=== PATIENT | female | born 1935 | race Caucasian/White ===

== ENCOUNTER 2020-06-30 11:26 | Emergency (ER) | payer MEDICARE, MEDICAID, SELFPAY ==
[2020-06-30] VITALS (24 sets, daily range): BP systolic 166–225; BP diastolic 67–106; PULSE 53–114; RESP 13–30; TEMP 36.4; O2SAT 90–99
--- NOTE | 2020-06-30 11:35 | ED.ABDPAIN ---
HPI - Abdominal Pain General Chief Complaint: Nausea/Vomiting/Diarrhea Stated Complaint: stomach and throat problems Time Seen by Provider: 06/30/20 11:35 Source: patient and family (Her sister) Mode of arrival: EMS Limitations: no limitations History of Present Illness HPI narrative: The patient is a resident of [facility] in [place], [place]. She developed nausea and vomiting yesterday. She describes recent loose bowel movements also. She has no URI symptoms, cough or sore throat. She has no fever. She has no dyspnea. She does not having significant chest discomfort. She has a nausea vomiting, no current complaints of pain. She has a prior history of hiatal hernia repair, as well as appendectomy. There is no history of bowel obstruction. She has no fever chills, no obvious illness with the current symptoms. She has asthma, no current difficulty breathing. Her sister confirms that she has frequent UTIs. The patient denies dysuria. She tells me she has chronic back pain, nothing new. She is hard of hearing, she does not appear to have confusion. Despite the GI complaints and she is tolerating oral fluids, she had her normal morning medications. Related Data Home Medications Medication Instructions Recorded Confirmed ALUM HYD/MAG HYD (MAALOX) 30 ml PO #0 03/12/08 Diltiazem Hydrochloride (Cardizem) 60 mg PO #0 03/12/08 Diltiazem Hydrochloride (Diltiazem 240 mg PO #0 03/12/08 24HR Cd) Esomeprazole Magnesium (Nexium) 40 mg PO #0 03/12/08 FUROSEMIDE (Lasix) 40 mg PO #0 03/12/08 Fluticasone Propionate/Salme 1 dose IH BID #0 03/12/08 (Advair Diskus 100/50) GABAPENTIN (Neurontin) 300 mg PO #0 03/12/08 HYDROCODONE/ACET 5/500 - 0 PO * UK DOSE/FREQUENCY #0 03/12/08 (Hydrocodon-Acetaminophen 5-500) IPRATROPIUM INHALER - (ATROVENT) 0 INH * UK DOSE/FREQUENCY #0 03/12/08 LEVOTHYROXINE SODIUM (Synthroid) 100 mcg PO #0 03/12/08 LORAZEPAM (Ativan) 0.5 mg PO #0 03/12/08 Metformin Hydrochloride 500 mg PO #0 03/12/08 (Glucophage) Montelukast Sodium (Singulair) 10 mg PO #0 03/12/08 NYSTATIN (Mycostatin) 0 PO * UK DOSE/FREQUENCY #0 03/12/08 OMEPRAZOLE 10 mg PO #0 03/12/08 Ondansetron Hydrochloride- (Zofran) 4 mg PO #0 03/12/08 POTASSIUM CHLORIDE (K-Dur) 20 meq PO BID #0 03/12/08 Promethazine HCl (Phenergan) 0 PO * UK DOSE/FREQUENCY #0 03/12/08 SPIRONOLACTONE (Aldactone) 50 mg PO #0 03/12/08 THEOPHYLLINE (Theophylline 0 PO * UK DOSE/FREQUENCY #0 03/12/08 Anhydrous) ezetimibe [Zetia] 10 mg PO Q DAY #0 03/12/08 gabapentin [Neurontin] 600 mg PO #0 03/12/08 Previous Rx's Medication Instructions Recorded ondansetron 4 mg PO Q4H PRN #14 tab 06/30/20 Allergies Allergy/AdvReac Type Severity Reaction Status Date / Time amoxicillin Allergy Verified 06/30/20 11:35 aspirin Allergy Verified 06/30/20 11:35 Cephalosporins Allergy Verified 06/30/20 11:35 clarithromycin [From Biaxin] Allergy Verified 06/30/20 11:35 levofloxacin [From Levaquin] Allergy Verified 06/30/20 11:35 moxifloxacin [From Avelox] Allergy Verified 06/30/20 11:35 naproxen [From Naprosyn] Allergy Verified 06/30/20 11:35 Penicillins Allergy Verified 06/30/20 11:35 Review of Systems Constitutional Constitutional: Denies chills, Denies fever(s) and Reports weakness Eyes Eyes: Denies change in vision ENT Ears, Nose, Mouth, and Throat: Denies dizziness and Denies sore throat Cardiovascular Cardiovascular: Denies chest pain, Denies irregular heart rhythm, Denies lightheadedness and Denies dyspnea Respiratory Respiratory: Denies cough, Denies dyspnea and Denies wheezing Gastrointestinal Gastrointestinal: Reports as per HPI Genitourinary Genitourinary: Denies dysuria Genitourinary: Denies dysuria Musculoskeletal Musculoskeletal: Reports as per HPI and Reports back pain Integumentary/Breasts Skin/Breast: Reports erythema (Erythema is rash in her groin.) Neurologic Neurologic: Denies confusion, Denies dizziness and Reports weakness Psychiatric Psychiatric: Denies confusion Allergic/Immunologic Allergic/Immunologic: Denies wheezing Patient History Medical History (Updated 06/30/20 @ 17:49 by Chapin Toribio MD) Asthma (Acute) Hiatal hernia (Acute) Type 2 diabetes mellitus (Acute) Surgical History (Updated 06/30/20 @ 14:13 by Chapin Toribio MD) History of appendectomy (Acute) History of cholecystectomy (Acute) History of repair of hiatal hernia (Acute) Social History Smoking Status: Unknown if ever smoked Exam Initial Vital Signs Initial Vital Signs: Vital Signs Temperature 97.6 F 06/30/20 11:30 Pulse Rate 114 H 06/30/20 11:30 Respiratory Rate 21 06/30/20 11:30 Blood Pressure 199/106 H 06/30/20 11:30 Pulse Oximetry 96 06/30/20 11:30 Const General: cooperative and well developed Nutritional Appearance: well nourished HENKY Mouth: oral mucosae normal Throat: posterior oropharynx normal Eyes General: appearance normal, both eyes and all related structures Eyelids: eyelids normal Conjunctivae: conjunctivae normal Sclera: sclerae normal Pupils: PERRL EOM: EOM intact bilaterally Neck Neck: No JVD Resp Effort & Inspection: normal respiratory effort and able to speak in complete sentences Auscultation: clear to auscultation bilaterally, no rales, no rhonchi and no wheezes Cardio Rate: regular rate Rhythm: regular rhythm Heart Sounds: S1 normal, S2 normal, no click, no gallops, no murmurs and no rubs Pulses: normal peripheral pulses GI Inspection: non-distended Palpation: soft, no hepatosplenomegaly, No guarding, No pulsatile mass and No tender Auscultation: normal bowel sounds Back/Spine/Pelvis Back: No CVA tenderness Skin General: no rashes or lesions noted, No jaundice and No petechiae Neuro General: patient alert, patient oriented x3, gait normal and no focal motor deficits Speech: speech normal Extrem General: full ROM, no pedal edema and no calf tenderness Psych Mental Status: mental status grossly normal Course Course Course Narrative: The patient tolerated sips of fluid after receiving Zofran. She says she still has epigastric discomfort, but no nausea vomiting. She describes burning in the sternum after vomiting. She has a history of hiatal hernia, she has GERD symptoms. She is already taking Nexium, as well as Maalox. Her evaluation is reassuring. She will be discharged with her current medications as well as Zofran. Additionally she has a rash in her going, she will be instructed to treat this with clotrimazole. Her blood pressure increased above 200 here, the with no headache, visual changes, chest pain or dyspnea. She has been taking regular meds, she was given lisinopril 5 mg p.o. her blood pressure improved. She is appropriate for discharge. She should follow-up with her doctor regarding her blood pressure. Orders Ordered: ED Orders 06/30/20 11:35 EKG-12 Lead Routine 06/30/20 11:53 Complete Blood Count AUTO DIFF Stat Comprehensive Metabolic Panel Stat Lipase Stat 06/30/20 11:55 XR acute abdomen series Stat Discontinued Medications Sodium Chloride (Normal Saline 0.9%) 1,000 mls @ 1,000 mls/hr IV BOLUS ONE Stop: 06/30/20 12:54 Last Infusion: 06/30/20 14:38 Dose: 0 mls/hr Documented by: Admin: 06/30/20 12:14 Dose: 1,000 mls/hr Documented by: ROXANNA Ketorolac Tromethamine (Toradol) 60 mg IM NOW ONE Stop: 06/30/20 11:56 Last Admin: 06/30/20 12:14 Dose: Not Given Documented by: ROXANNA Lisinopril (Zestril) 5 mg PO NOW ONE Stop: 06/30/20 15:07 Last Admin: 06/30/20 15:19 Dose: 5 mg Documented by: ROXANNA Ondansetron HCl (Zofran) 4 mg IV NOW ONE Stop: 06/30/20 11:56 Last Admin: 06/30/20 12:14 Dose: 4 mg Documented by: ROXANNA Vital Signs Vital signs: Vital Signs - 8 hr 06/30/20 11:30 06/30/20 11:42 06/30/20 12:00 Temperature 97.6 F Pulse Rate 114 H 82 66 Respiratory Rate 21 30 H 13 Blood Pressure 199/106 H Pulse Oximetry 96 98 98 06/30/20 12:01 06/30/20 12:17 06/30/20 12:30 Temperature Pulse Rate 66 65 75 Respiratory Rate 14 Blood Pressure 166/68 H 168/67 H 175/94 H Pulse Oximetry 98 98 96 06/30/20 13:00 06/30/20 13:30 06/30/20 13:31 Temperature Pulse Rate 59 L 60 Respiratory Rate 18 Blood Pressure 184/77 H 196/74 H Pulse Oximetry 98 99 99 06/30/20 14:00 06/30/20 14:01 06/30/20 14:30 Temperature Pulse Rate 59 L 66 63 Respiratory Rate 21 22 29 H Blood Pressure 192/75 H Pulse Oximetry 99 99 93 06/30/20 14:54 06/30/20 15:01 06/30/20 15:03 Temperature Pulse Rate 71 Respiratory Rate 27 H Blood Pressure 217/87 H 206/84 H Pulse Oximetry 97 06/30/20 15:15 06/30/20 15:16 06/30/20 15:19 Temperature Pulse Rate 53 L 57 L Respiratory Rate Blood Pressure 208/79 H 208/79 H Pulse Oximetry 94 99 06/30/20 15:31 06/30/20 15:33 06/30/20 15:48 Temperature Pulse Rate 54 L 57 L 58 L Respiratory Rate Blood Pressure 225/101 H 224/99 H Pulse Oximetry 90 L 99 98 06/30/20 15:53 06/30/20 16:05 06/30/20 16:17 Temperature Pulse Rate 61 Respiratory Rate Blood Pressure 197/89 H 190/100 H 184/86 H Pulse Oximetry 98 MDM - Abdominal Pain Lab Data Result diagrams: 06/30/20 11:53 06/30/20 11:53 Labs: Lab Results 06/30/20 06/30/20 Range/Units 11:53 11:53 WBC 5.2 (4.5-11.0) X10^3/uL RBC 4.25 (4.0-5.2) X10^6/uL Hgb 14.4 (12.0-16.0) g/dL Hct 42.3 (36-46) % MCV 99.5 (80-100) fL MCH 33.8 (26-34) PG MCHC 34.0 (30-36) % RDW 13.0 (11.6-14.8) % Plt Count 236 (150-400) X10^3/uL Neut % (Auto) 63.8 (50-75) % Lymph % (Auto) 22.2 L (25-40) % [place] % (Auto) 8.0 (3-14) % Eos % (Auto) 4.9 H (2-4) % Baso % (Auto) 1.1 (0-2) % Neut # (Auto) 3300 (0053-9294) /uL Lymph # (Auto) 1200 (9247-5226) /uL [place] # (Auto) 400 (0-900) /uL Eos # (Auto) 300 (0-450) /uL Baso # (Auto) 100 (0-100) /uL Sodium 135 L (137-145) mmol/L Potassium 5.3 H (3.4-5.1) mmol/L Chloride 100 (98-107) mmol/L Carbon Dioxide 26 (22-32) mmol/L BUN 22 H (7-17) mg/dL Creatinine 1.09 H (0.52-1.04) mg/dL Estimated GFR 47.8 L (>60) mL/min BUN/Creatinine Ratio 20.2 (6-22) Glucose 172 H (80-110) mg/dL Calcium 11.0 H (8.4-10.2) mg/dL Total Bilirubin 1.0 (0.2-1.3) mg/dL AST 48 H (14-36) IU/L ALT 36 H (<35) IU/L Alkaline Phosphatase 171 H (38-126) U/L Total Protein 8.0 (6.3-8.2) g/dL Albumin 4.4 (3.5-5.0) g/dL Globulin 3.6 (1.7-4.1) g/dL Albumin/Globulin Ratio 1.2 (1.0-2.8) Lipase 88 (23-300) U/L Point of care testing: Urine Dip Bedside Urine Glucose Negative Bedside Urine Bilirubin - Negative Bedside Urine Ketone +/- 5 Urine Specific [place] 1.020 Bedside Urine Occult Blood - Negative Bedside Urine pH 5.5 Bedside Urine Protein - Negative Bedside Urine Urobilinogen - Negative Bedside Urine Nitrite - Negative Bedside Urine Leukocytes - Negative Esterase Imaging Data Abdominal x-ray: Radiologist's Impression: 19 Chapin Toribio MD Find Patient Imaging - Chasse,Mariana Y 84 F 1935 ACTIVITY DATE EXAM STATUS AUTHOR 06/30/20 11:55 Signed [facility] [address] [address] XRay Report Signed Patient: Mariana Alves YMR#: [id number] : 5Acct:[id number] Age/Sex: 84 / FDate of Service: 06/30/20 Loc: ED Accession Number: [id number] Procedure: XR acute abdomen series Ordering Provider: Chapin Toribio MD PROCEDURE: XR ACUTE ABDOMEN SERIES INDICATIONS: Persistent nausea/vomiting. Hiatal hernia repair. Asthma. TECHNIQUE: One view chest and two views of the abdomen were acquired. COMPARISON: [facility], CHEST 2 VIEW, 03/04/2008, 15:07. FINDINGS: Surgical changes and devices: Cholecystectomy. Chest: Hyperinflation consistent with COPD. Bibasilar opacities are most likely scars and atelectasis. Heart size is normal. No pleural effusions. No pneumoperitoneum. Abdomen: There is abundant colonic gas and small bowel gas. No air-fluid levels. Metallic densities in pelvis are most likely a side of the patient. No suspicious calcifications. Visualized solid organ contours appear normal. Bones: No suspicious bony lesions. IMPRESSION: Nonspecific, nonobstructive bowel gas pattern. Dictated by: Jaswant Story M.D. on 06/30/2020 at 13:11 Approved by: Jaswant Story M.D. on 06/30/2020 at 13:23 ECG Data Attestation: I personally reviewed and interpreted this ECG as follows: (Normal sinus rhythm with marked sinus arrhythmia. Rate 76 beats per minute. Left axis deviation. No ectopy.) Discharge Plan Departure Patient Disposition: Home Clinical Impression: Nausea & vomiting, History of repair of hiatal hernia, Tinea cruris, Hypertension Discharge Date/Time: 06/30/20 16:30 Instructions: Tinea Cruris: AKA [place] Itch, DI for Vomiting -- Adult Activity Restrictions/Additional Instructions: Continue your current medications. Zofran 1 tablet every 4-6 hours as needed for nausea. For the rash, the areas should be cleaned with soap and water 2-3 times daily. After the sites heard clean and dry, apply clotrimazole cream to the sites. The clotrimazole should also be applied to 3 times daily, until the rash is obviously improving. If the rash does not improve within 2 weeks follow-up with your doctor. Clotrimazole is available [id number]. Be sure you are drinking plenty of water, you should be on a bland diet for the next 48 hours. I suspect you feeling better within a day, if not improved within 2 days return to the ER. If obviously worse return the ER at any time. Regarding your blood pressure, you should follow-up with your doctor to re-evaluate your blood pressure management. Prescriptions: New ondansetron 4 mg tablet,disintegrating 4 mg PO Q4H PRN (Reason: nausea and vomiting) Qty: 14 RF: 0 No Action Diltiazem Hydrochloride (Diltiazem 24HR Cd) 240 mg PO Qty: 0 RF: 0 Esomeprazole Magnesium (Nexium) 40 mg PO Qty: 0 RF: 0 FUROSEMIDE (Lasix) 40 mg PO Qty: 0 RF: 0 GABAPENTIN (Neurontin) 300 mg PO Qty: 0 RF: 0 IPRATROPIUM INHALER - (ATROVENT) 0 INH * UK DOSE/FREQUENCY Qty: 0 RF: 0 Metformin Hydrochloride (Glucophage) 500 mg PO Qty: 0 RF: 0 OMEPRAZOLE 10 mg PO Qty: 0 RF: 0 THEOPHYLLINE (Theophylline Anhydrous) 0 PO * UK DOSE/FREQUENCY Qty: 0 RF: 0 ezetimibe [Zetia] 10 MG tablet 10 mg PO Q DAY Qty: 0 RF: 0 Fluticasone Propionate/Salme (Advair Diskus 100/50) 1 dose IH BID Qty: 0 RF: 0 LEVOTHYROXINE SODIUM (Synthroid) 100 mcg PO Qty: 0 RF: 0 Montelukast Sodium (Singulair) 10 mg PO Qty: 0 RF: 0 ALUM HYD/MAG HYD (MAALOX) 30 ml PO Qty: 0 RF: 0 gabapentin [Neurontin] 600 MG tablet 600 mg PO Qty: 0 RF: 0 Diltiazem Hydrochloride (Cardizem) 60 mg PO Qty: 0 RF: 0 LORAZEPAM (Ativan) 0.5 mg PO Qty: 0 RF: 0 NYSTATIN (Mycostatin) 0 PO * UK DOSE/FREQUENCY Qty: 0 RF: 0 HYDROCODONE/ACET 5/500 - (Hydrocodon-Acetaminophen 5-500) 0 PO * UK DOSE/FREQUENCY Qty: 0 RF: 0 Ondansetron Hydrochloride- (Zofran) 4 mg PO Qty: 0 RF: 0 Promethazine HCl (Phenergan) 0 PO * UK DOSE/FREQUENCY Qty: 0 RF: 0 POTASSIUM CHLORIDE (K-Dur) 20 meq PO BID Qty: 0 RF: 0 SPIRONOLACTONE (Aldactone) 50 mg PO Qty: 0 RF: 0 Referrals: Pancho Kincaid MD [Primary Care Provider] -
--- NOTE | 2020-06-30 11:55 | DI.RAD.S_ITS ---
PROCEDURE: XR ACUTE ABDOMEN SERIES INDICATIONS: Persistent nausea/vomiting. Hiatal hernia repair. Asthma. TECHNIQUE: One view chest and two views of the abdomen were acquired. COMPARISON: Located [facility], , CHEST 2 VIEW, 03/04/2008, 15:07. FINDINGS: Surgical changes and devices: Cholecystectomy. Chest: Hyperinflation consistent with COPD. Bibasilar opacities are most likely scars and atelectasis. Heart size is normal. No pleural effusions. No pneumoperitoneum. Abdomen: There is abundant colonic gas and small bowel gas. No air-fluid levels. Metallic densities in pelvis are most likely a side of the patient. No suspicious calcifications. Visualized solid organ contours appear normal. Bones: No suspicious bony lesions. IMPRESSION: Nonspecific, nonobstructive bowel gas pattern. Dictated by: Jaswant Story M.D. on 06/30/2020 at 13:11 Approved by: Jaswant Story M.D. on 06/30/2020 at 13:23
[2020-06-30 12:02] LABS: Add Manual Diff / Slide Review NO; Basophils Absolute Auto 100 /uL (0-100); Basophils Percent Auto 1.1 % (0-2); Eosinophils Absolute Auto 300 /uL (0-450); Eosinophils Percent Auto 4.9 % (2-4); Hematocrit 42.3 % (36-46); Hemoglobin 14.4 g/dL (12.0-16.0); Lymphocytes Absolute Auto 1200 /uL (1100-4500); Lymphocytes Percent Auto 22.2 % (25-40); Mean Corpuscular Hemoglobin 33.8 PG (26-34); Mean Corpuscular Volume 99.5 fL (80-100); Monocytes Absolute Auto 400 /uL (0-900); Neutrophils Absolute Auto 3300 /uL (1500-7000); Neutrophils Percent Auto 63.8 % (50-75); Platelet Count 236 X10^3/uL (150-400); Red Blood Cell Count 4.25 X10^6/uL (4.0-5.2); White Blood Cell Count 5.2 X10^3/uL (4.5-11.0)
[2020-06-30 12:12] LABS: Alanine Aminotransferase 36 IU/L (<35); Albumin 4.4 g/dL (3.5-5.0); Albumin Globulin Ratio 1.2 (1.0-2.8); Alkaline Phosphatase 171 U/L (38-126); Aspartate Aminotransferase 48 IU/L (14-36); BUN Creatinine Ratio 20.2 (6-22); Blood Urea Nitrogen 22 mg/dL (7-17); Carbon Dioxide 26 mmol/L (22-32); Chloride 100 mmol/L (98-107); Estimated Glomerular Filt Rate 47.8 mL/min (>60); Globulin 3.6 g/dL (1.7-4.1); Glucose 172 mg/dL (80-110); HEMOLYSIS < 15 (0-50); Lipase 88 U/L (23-300); Potassium 5.3 mmol/L (3.4-5.1); Sodium 135 mmol/L (137-145)
[2020-06-30] MEDS: ONDANSETRON 4 MG/2 ML INJ IV (12:14)
[2020-06-30] MEDS: SODIUM CHLORIDE 0.9% 1,000 ML 1000 ML IV (12:14)
--- NOTE | 2020-06-30 15:07 | PC.NURSE ---
Attempting to discharge patient. attendant child activity and IV removed. Discharge vital sign shows BP 217/84, repeated on opposite arm and BP 206/84. Provider notified and patient situated back in bed and placed back on electronic test technician.
[2020-06-30] MEDS: lisinopriL 5 MG TABLET PO (15:19)
[2020-07-01 21:10] LABS: COVID19 Sendout Not Detected (Not Detect)
== END 2020-06-30 16:30 | disposition home or self-care (01) ==
PROVIDERS: Emergency Provider Emergency Medicine; PCP Family Medicine
DX: R11.2 Nausea with vomiting, unspecified (principal); R19.7 Diarrhea, unspecified; B35.6 Tinea cruris; I10 Essential (primary) hypertension; E11.9 Type 2 diabetes mellitus without complications; Z11.59 Encounter for screening for other viral diseases
CPT/HCPCS: 36415; 74022; 80053; 81003; 83690; 85025; 87635; 93005; 96361; 96374; 99284; J2405

== ENCOUNTER 2020-07-05 12:14 | Observation (INO) | payer MEDICARE, MEDICAID, SELFPAY ==
[2020-07-05] VITALS (13 sets, daily range): BP systolic 135–184; BP diastolic 61–113; PULSE 72–104; RESP 17–30; TEMP 36.6–36.8; O2SAT 90–99; BMI 21.6
[2020-07-05 13:31] LABS: Add Manual Diff / Slide Review NO; Basophils Absolute Auto 100 /uL (0-100); Basophils Percent Auto 0.8 % (0-2); Eosinophils Absolute Auto 300 /uL (0-450); Eosinophils Percent Auto 5.3 % (2-4); Hematocrit 40.4 % (36-46); Hemoglobin 13.5 g/dL (12.0-16.0); Lymphocytes Absolute Auto 1400 /uL (1100-4500); Lymphocytes Percent Auto 23.4 % (25-40); Mean Corpuscular HGB Conc 33.5 % (30-36); Mean Corpuscular Hemoglobin 33.5 PG (26-34); Mean Corpuscular Volume 99.9 fL (80-100); Monocytes Absolute Auto 600 /uL (0-900); Monocytes Percent Auto 10.5 % (3-14); Neutrophils Absolute Auto 3600 /uL (1500-7000); Platelet Count 301 X10^3/uL (150-400); Red Blood Cell Count 4.04 X10^6/uL (4.0-5.2); Red Cell Distribution Width 13.3 % (11.6-14.8)
[2020-07-05 13:37] LABS: Alanine Aminotransferase 25 IU/L (<35); Albumin Globulin Ratio 1.1 (1.0-2.8); Alkaline Phosphatase 133 U/L (38-126); Aspartate Aminotransferase 45 IU/L (14-36); BUN Creatinine Ratio 28.3 (6-22); Bilirubin Total 0.7 mg/dL (0.2-1.3); Blood Urea Nitrogen 34 mg/dL (7-17); Calcium 12.3 mg/dL (8.4-10.2); Carbon Dioxide 27 mmol/L (22-32); Chloride 101 mmol/L (98-107); Creatine Kinase 109 U/L (30-135); Estimated Glomerular Filt Rate 42.8 mL/min (>60); Globulin 3.6 g/dL (1.7-4.1); Glucose 151 mg/dL (80-110); HEMOLYSIS < 15 (0-50); Lipase 85 U/L (23-300); Sodium 138 mmol/L (137-145); Total Protein 7.6 g/dL (6.3-8.2)
[2020-07-05 13:48] LABS: Troponin I < 0.012 ng/mL (0.01-0.034)
[2020-07-05 13:52] LABS: CKMB % Relative Index 2.3 % (1.5-5.0); Creatine Kinase MB 2.49 ng/mL (<2.37)
--- NOTE | 2020-07-05 13:52 | PC.NURSE ---
Family reports HX diverticulitis
[2020-07-05 14:33] LABS: RBC Urine None Seen (0-5/HPF)
--- NOTE | 2020-07-05 14:36 | DI.CT.S_ITS ---
PROCEDURE: CT ABDOMEN PELVIS W CON INDICATIONS: Uncontrollable vomiting, history of hiatal hernia TECHNIQUE: After the administration of oral and intravenous contrast, 5 mm thick sections acquired from the diaphragms to the symphysis. 5 mm thick coronal and sagittal reformats were performed. For radiation dose reduction, the following was used: automated exposure control, adjustment of mA and/or kV according to patient size. COMPARISON: [facility], CT, ABDOMEN/PELVIS WITH CONTRAST, 10/21/2013, 10:39. FINDINGS: Image quality: Excellent. ABDOMEN: Lung bases: Lung bases are clear. Punctate pulmonary nodule of the left lung base, unchanged. No pleural effusion. Heart size is normal. Solid organs: Liver is normal in size and enhancement. Gallbladder is surgically absent. Biliary system is non-dilated. Pancreas enhances normally. Spleen is normal in size and enhancement. Heterogeneous appearance of the right adrenal gland is similar to 2013 suggesting a benign etiology. Small calcification in the left adrenal gland. Kidneys enhance symmetrically. No hydronephrosis. Simple right renal cyst is again seen. Peritoneum and bowel: Small hiatal hernia similar to the prior exam. Small calcification at the gastric cardia. No perigastric free fluid. Diverticulosis. No small bowel obstruction. No pneumoperitoneum. Nodes and vessels: No retroperitoneal or mesenteric adenopathy. Aorta and inferior vena cava are normal in caliber. Extensive calcified atherosclerotic plaque. Miscellaneous: Small upper abdominal midline fat containing hernia, unchanged. The hernia neck measures 1.3 cm. PELVIS: Genitourinary: Bladder wall thickness is normal. Small right ovarian cyst in this postmenopausal patient measuring 2.8 cm, remotely 2.2 cm in 2013. Anteverted uterus with likely small calcified fibroid. Miscellaneous: No inguinal hernias or adenopathy. Bones: No suspicious bony lesions. Extensive DDD. No vertebral body compression fractures. IMPRESSION: 1. No acute inflammatory process identified. 2. Small hiatal hernia is stable in appearance. No free fluid. No bowel obstruction. Additional findings: Post cholecystectomy Diverticulosis Small right ovarian cyst Suspect remote adrenal hemorrhage Dictated by: Eriberto Gilmore M.D. on 07/05/2020 at 15:26 Approved by: Eriberto Gilmore M.D. on 07/05/2020 at 15:36
[2020-07-05] MEDS: ONDANSETRON 4 MG/2 ML INJ IV ×2 (14:46→23:52)
[2020-07-05] MEDS: SODIUM CHLORIDE 0.9% 1,000 ML 150 ML IV (14:46)
[2020-07-05 14:52] LABS: Bacteria Urine Many (>30); Hyaline Casts Urine 1-5/LPF; Squamous Epithelial Cell Urine 0-1 /HPF (0-5/HPF); WBC Urine 30-100/HPF (0-5/HPF)
[2020-07-05 14:53] LABS: Culture Indicated Urine Specimen Cultured
--- NOTE | 2020-07-05 15:07 | ED_ITS ---
HPI - Chest Pain <Toshia CoteROSALES - Last Filed: 07/05/20 20:35> General Chief Complaint: Chest Pain Stated Complaint: NOT ABLE TO SWALLOW FOOD PAIN CHEST DIZZY THROAT Time Seen by Provider: 07/05/20 12:25 Source: patient and family Mode of arrival: Wheelchair Limitations: no limitations History of Present Illness HPI narrative: 84yo female with history of diabetes, asthma, appendectomy, cholecystectomy, and hiatal hernia, presents to the emergency department complaining of nausea and vomiting and difficulty swallowing for the past 6 days. Patient was seen and evaluated in the emergency department and sent home. She currently lives in an assisted living facility. Her sister brought her back to the emergency department as a reports that she continues to vomit and cannot keep anything down. Patient reports epigastric and lower left abdominal pain. She also reports chest pain that is worse when she tries to swallow something, states ?it feels food gets stuck. Patient denies any fevers, chills, dysuria, dizziness, syncope, or recent falls. Related Data Home Medications Medication Instructions Recorded Confirmed acetaminophen 650 mg PO TID 07/05/20 07/05/20 albuterol sulfate [Ventolin HFA] 1 inh INHALATION Q4HR PRN 07/05/20 07/05/20 calcium carbonate-vitamin D3 1 tab PO BID 07/05/20 07/05/20 cetirizine 5 mg PO DAILY 07/05/20 07/05/20 famotidine 20 mg PO DAILY 07/05/20 07/05/20 fluticasone propion-salmeterol 1 inh INHALATION BID 07/05/20 07/05/20 [Advair Diskus] fluticasone propionate 1 spray INTRANASAL BID 07/05/20 07/05/20 ketotifen fumarate [Allergy Eye 1 drp EYE-BOTH DAILY PRN 07/05/20 07/05/20 (ketotifen)] levothyroxine 75 mcg PO DAILY 07/05/20 07/05/20 metformin 500 mg PO QAM 07/05/20 07/05/20 multivitamin with minerals [Daily 1 tab PO DAILY 07/05/20 07/05/20 Multivitamin-Minerals] nystatin 1 applic TOPICAL DAILY PRN 07/05/20 07/05/20 ondansetron 4 mg TRANSLINGUAL Q4HR PRN 07/05/20 07/05/20 polyethylene glycol 3350 [Miralax] 17 g PO DAILY PRN 07/05/20 07/05/20 polyvinyl alcohol [Artificial 1 drp EYE-BOTH DAILY 07/05/20 07/05/20 Tears (polyvin alc)] Allergies Allergy/AdvReac Type Severity Reaction Status Date / Time aspirin Allergy Mild Rash Verified 07/06/20 10:45 naproxen [From Naprosyn] Allergy Mild Rash Verified 07/06/20 10:45 amoxicillin Allergy Verified 07/05/20 12:25 Cephalosporins Allergy Verified 07/05/20 12:25 clarithromycin [From Biaxin] Allergy Verified 07/05/20 12:25 levofloxacin [From Levaquin] Allergy Verified 07/05/20 12:25 moxifloxacin [From Avelox] Allergy Verified 07/05/20 12:25 Penicillins Allergy Verified 07/05/20 12:25 Review of Systems <ROSALES Wahl - Last Filed: 07/05/20 20:35> Review of Systems Narrative: REVIEW OF SYSTEMS: GENERAL: Denies fever. HENT: No head trauma, reports difficulty swallowing liquids. EYES: No vision changes CARDIOVASCULAR: Reports chest pain and difficulty swelling, see HPI. RESPIRATORY: No shortness of breath or cough. GASTROINTESTINAL: Reports epigastric pain and vomiting, see HPI GENITOURINARY: No flank pain or dysuria. MUSCULOSKELETAL: No pain, weakness, or trauma. INTEGUMENTARY: No rash, lesions, or pruritus. NEURO: No numbness or tingling. PSYCH: No behavior or mood changes. Patient History <ROSALES Wahl - Last Filed: 07/05/20 20:35> Medical History Asthma (Acute) Hiatal hernia (Acute) Hypertension (Inactive) Type 2 diabetes mellitus (Acute) Surgical History History of appendectomy (Acute) History of cholecystectomy (Acute) History of repair of hiatal hernia (Acute) Family History (Updated 07/06/20 @ 02:18 by ROSALES Keane) Father Asthma Mother Laryngeal disorder Stomach disorder Social History household members: none Smoking Status: Never smoker alcohol intake: current Smoking Status: Unknown if ever smoked alcohol intake frequency: holidays/special occasions only Substance Use Type: does not use Exam <ToshiaROSALES Pereyra - Last Filed: 07/05/20 20:35> Initial Vital Signs Initial Vital Signs: Vital Signs Pulse Rate 102 H 07/05/20 12:23 Respiratory Rate 18 07/05/20 12:23 Blood Pressure 135/92 H 07/05/20 12:23 Pulse Oximetry 99 07/05/20 12:23 PHYSICAL EXAMINATION: GENERAL: Well groomed, alert. Patient is extremely hard of hearing. Answers questions promptly and appropriately. Vital signs noted. HENT: Normocephalic, atraumatic. Oral mucosa moist. EYES: Conjunctiva pink, sclera white, no periorbital swelling. CARDIOVASCULAR: S1 and S2 sounds normal. Regular rate and rhythm, no murmurs, clicks, or bruits. No pedal edema. RESPIRATORY: Normal respiratory rate, trachea midline, airway patent. No stridor, nasal flaring or accessory muscle use. Lungs are clear in all contreras without wheeze, rhonchi, or crackles. GASTROINTESTINAL: Bowel sounds normoactive. Abdomen is soft and non-tender. No organomegaly, no palpable masses. GENITALURINARY: No flank tenderness. Erythematous patches noted to right and left inguinal areas. MUSCULOSKELETAL: Normal gait and coordination. Equal tone and mass bilaterally. EXTREMITIES: CMS intact, no pedal edema. SKIN: Warm, dry, soft, appropriate color for ethnicity. No lesions, rashes, or wounds to visualized areas. NEURO: Alert. Good coordination. No ataxia. PSYCH: Appropriate affect and mood. <Shahriar Whitney MD - Last Filed: 07/06/20 13:23> Initial Vital Signs Initial Vital Signs: Vital Signs Pulse Rate 102 H 07/05/20 12:23 Respiratory Rate 18 07/05/20 12:23 Blood Pressure 135/92 H 07/05/20 12:23 Pulse Oximetry 99 07/05/20 12:23 Course <ROSALES Wahl - Last Filed: 07/05/20 20:35> Course Course Narrative: 1603: I spoke with Dr. Up about admission given patient's inability to swallow or keep liquids down, she recommended consulting General surgery. 1607: I spoke with Dr. Benz who also evaluated patient. Recommends admit to medicine for scope in the morning. 1700: Patient admitted to Dr. Up for observation. Orders Ordered: Acetaminophen (Tylenol) 650 mg PO Q6HR PRN PRN Reason: Fever/Mild Pain (1-3) Albuterol (Ventolin Hfa (Vent/Covid R/O)) 1 puff INH Q4HR PRN PRN Reason: Shortness Of Breath Artificial Tears (Artificial Tears) 1 drops EYE-BOTH DAILY [facility] Last Admin: 07/06/20 10:58 Dose: 1 drops Documented by: AMRIK Bisacodyl (Dulcolax) 10 mg CO DAILY PRN PRN Reason: Constipation Docusate Sodium (Colace) 100 mg PO BID PRN PRN Reason: Constipation Famotidine (Pepcid Ac) 20 mg PO DAILY [facility] Last Admin: 07/06/20 10:58 Dose: 20 mg Documented by: AMRIK Fluticasone Propionate (Flonase) 1 spray NASAL BID [facility] Last Admin: 07/06/20 10:58 Dose: 1 spray Documented by: Admin: 07/05/20 20:49 Dose: Not Given Documented by: ANA PAULA Sodium Chloride (Normal Saline 0.9%) 1,000 mls @ 100 mls/hr IV CONT [facility] Last Admin: 07/06/20 02:34 Dose: 100 mls/hr Documented by: KALYANI Insulin Aspart (Novolog Flexpen) 0 unit SUBCUT AC [facility]; Protocol Last Admin: 07/06/20 12:14 Dose: Not Given Documented by: AMRIK Levothyroxine Sodium (Synthroid) 75 mcg PO DAILY [facility] Last Admin: 07/06/20 11:00 Dose: 75 mcg Documented by: AMRIK Loratadine (Claritin) 5 mg PO DAILY [facility] Last Admin: 07/06/20 10:59 Dose: 5 mg Documented by: AMRIK Naloxone HCl (Narcan) 0.2 mg IV Q2MIN PRN PRN Reason: Opiate Reversal Nystatin (Nystop) 1 applic TOP BID [facility] Last Admin: 07/06/20 10:59 Dose: 1 applic Documented by: Admin: 07/05/20 20:48 Dose: 1 applic Documented by: ANA PAULA Ondansetron HCl (Zofran) 4 mg IV Q6HR PRN PRN Reason: Nausea And Vomiting Last Admin: 07/06/20 08:11 Dose: 4 mg Documented by: Admin: 07/05/20 23:52 Dose: 4 mg Documented by: KALYANI Polyethylene Glycol (Miralax) 17 gm PO DAILY PRN PRN Reason: Constipation Fluticasone/Salmeterol (Advair 100/50 Diskus) 1 puff INH BID [facility] Last Admin: 07/06/20 11:20 Dose: 1 puff Documented by: Admin: 07/05/20 20:50 Dose: Not Given Documented by: ANA PAULA Discontinued Medications Sodium Chloride (Normal Saline 0.9%) 1,000 mls @ 150 mls/hr IV CONT [facility] Last Infusion: 07/05/20 17:31 Dose: 0 mls/hr Documented by: Admin: 07/05/20 14:46 Dose: 150 mls/hr Documented by: ROHITH Lactated Ringer's (Lactated Ringers) 1,000 mls @ 100 mls/hr IV CONT [facility] Last Admin: 07/05/20 17:55 Dose: 100 mls/hr Documented by: ANA PAULA Magnesium Sulfate (Magnesium Sulfate) 2 gm in 50 mls @ 25 mls/hr IV NOW ONE Stop: 07/05/20 23:48 Last Admin: 07/05/20 22:22 Dose: 25 mls/hr Documented by: ANA PAULA Cosigned by: TRAV Magnesium Sulfate (Magnesium Sulfate) 2 gm in 50 mls @ 25 mls/hr IV NOW ONE Stop: 07/06/20 09:11 Last Admin: 07/06/20 07:37 Dose: 25 mls/hr Documented by: AMRIK Cosigned by: LUPE Insulin Aspart (Novolog Flexpen) 1 unit SUBCUT [facility]; Protocol Last Admin: 07/06/20 08:05 Dose: 1 unit Documented by: AMRIK Cosigned by: LUPE Ketorolac Tromethamine (Toradol) 15 mg IV NOW ONE Stop: 07/06/20 10:35 Last Admin: 07/06/20 11:00 Dose: 15 mg Documented by: AMRIK Labetalol HCl (Trandate) 10 mg IV Q4HR PRN PRN Reason: Hypertension Ondansetron HCl (Zofran) 4 mg IV NOW ONE Stop: 07/05/20 14:39 Last Admin: 07/05/20 14:46 Dose: 4 mg Documented by: ROHITH Pantoprazole Sodium (Protonix) 40 mg IV NOW ONE Stop: 07/05/20 20:12 Last Admin: 07/05/20 20:49 Dose: 40 mg Documented by: ANA PAULA Consultations Consultation #1: Patient staffed with Dr. Whitney discussed test, test results, and plan of care. Vital Signs Vital signs: Vital Signs - 8 hr 07/05/20 12:30 07/05/20 13:00 07/05/20 13:30 Pulse Rate 98 H 80 72 Respiratory Rate 24 27 H Blood Pressure 144/89 H 138/66 143/61 H Pulse Oximetry 95 95 95 07/05/20 14:00 07/05/20 14:30 07/05/20 15:00 Pulse Rate 77 90 93 H Respiratory Rate 25 H 21 Blood Pressure 154/72 H Pulse Oximetry 93 94 98 07/05/20 15:30 07/05/20 16:08 Pulse Rate 95 H 86 Respiratory Rate 23 30 H Blood Pressure 184/84 H Pulse Oximetry 98 98 <Shahriar Whitney MD - Last Filed: 07/06/20 13:23> Orders Ordered: Acetaminophen (Tylenol) 650 mg PO Q6HR PRN PRN Reason: Fever/Mild Pain (1-3) Albuterol (Ventolin Hfa (Vent/Covid R/O)) 1 puff INH Q4HR PRN PRN Reason: Shortness Of Breath Artificial Tears (Artificial Tears) 1 drops EYE-BOTH DAILY [facility] Last Admin: 07/06/20 10:58 Dose: 1 drops Documented by: AMRIK Bisacodyl (Dulcolax) 10 mg CO DAILY PRN PRN Reason: Constipation Docusate Sodium (Colace) 100 mg PO BID PRN PRN Reason: Constipation Famotidine (Pepcid Ac) 20 mg PO DAILY [facility] Last Admin: 07/06/20 10:58 Dose: 20 mg Documented by: AMRIK Fluticasone Propionate (Flonase) 1 spray NASAL BID [facility] Last Admin: 07/06/20 10:58 Dose: 1 spray Documented by: Admin: 07/05/20 20:49 Dose: Not Given Documented by: ANA PAULA Sodium Chloride (Normal Saline 0.9%) 1,000 mls @ 100 mls/hr IV CONT [facility] Last Admin: 07/06/20 02:34 Dose: 100 mls/hr Documented by: KALYANI Insulin Aspart (Novolog Flexpen) 0 unit SUBCUT AC [facility]; Protocol Last Admin: 07/06/20 12:14 Dose: Not Given Documented by: AMRIK Levothyroxine Sodium (Synthroid) 75 mcg PO DAILY [facility] Last Admin: 07/06/20 11:00 Dose: 75 mcg Documented by: AMRIK Loratadine (Claritin) 5 mg PO DAILY [facility] Last Admin: 07/06/20 10:59 Dose: 5 mg Documented by: AMRIK Naloxone HCl (Narcan) 0.2 mg IV Q2MIN PRN PRN Reason: Opiate Reversal Nystatin (Nystop) 1 applic TOP BID [facility] Last Admin: 07/06/20 10:59 Dose: 1 applic Documented by: Admin: 07/05/20 20:48 Dose: 1 applic Documented by: ANA PAULA Ondansetron HCl (Zofran) 4 mg IV Q6HR PRN PRN Reason: Nausea And Vomiting Last Admin: 07/06/20 08:11 Dose: 4 mg Documented by: Admin: 07/05/20 23:52 Dose: 4 mg Documented by: KALYANI Polyethylene Glycol (Miralax) 17 gm PO DAILY PRN PRN Reason: Constipation Fluticasone/Salmeterol (Advair 100/50 Diskus) 1 puff INH BID [facility] Last Admin: 07/06/20 11:20 Dose: 1 puff Documented by: Admin: 07/05/20 20:50 Dose: Not Given Documented by: ANA PAULA Discontinued Medications Sodium Chloride (Normal Saline 0.9%) 1,000 mls @ 150 mls/hr IV CONT [facility] Last Infusion: 07/05/20 17:31 Dose: 0 mls/hr Documented by: Admin: 07/05/20 14:46 Dose: 150 mls/hr Documented by: ROHITH Lactated Ringer's (Lactated Ringers) 1,000 mls @ 100 mls/hr IV CONT [facility] Last Admin: 07/05/20 17:55 Dose: 100 mls/hr Documented by: ANA PAULA Magnesium Sulfate (Magnesium Sulfate) 2 gm in 50 mls @ 25 mls/hr IV NOW ONE Stop: 07/05/20 23:48 Last Admin: 07/05/20 22:22 Dose: 25 mls/hr Documented by: ANA PAULA Cosigned by: TRAV Magnesium Sulfate (Magnesium Sulfate) 2 gm in 50 mls @ 25 mls/hr IV NOW ONE Stop: 07/06/20 09:11 Last Admin: 07/06/20 07:37 Dose: 25 mls/hr Documented by: AMRIK Cosigned by: LUPE Insulin Aspart (Novolog Flexpen) 1 unit SUBCUT [facility]; Protocol Last Admin: 07/06/20 08:05 Dose: 1 unit Documented by: AMRIK Cosigned by: LUPE Ketorolac Tromethamine (Toradol) 15 mg IV NOW ONE Stop: 07/06/20 10:35 Last Admin: 07/06/20 11:00 Dose: 15 mg Documented by: AMRIK Labetalol HCl (Trandate) 10 mg IV Q4HR PRN PRN Reason: Hypertension Ondansetron HCl (Zofran) 4 mg IV NOW ONE Stop: 07/05/20 14:39 Last Admin: 07/05/20 14:46 Dose: 4 mg Documented by: ROHITH Pantoprazole Sodium (Protonix) 40 mg IV NOW ONE Stop: 07/05/20 20:12 Last Admin: 07/05/20 20:49 Dose: 40 mg Documented by: ANA PAULA Vital Signs Vital signs: Vital Signs - 8 hr 07/05/20 12:30 07/05/20 13:00 07/05/20 13:30 Pulse Rate 98 H 80 72 Respiratory Rate 24 27 H Blood Pressure 144/89 H 138/66 143/61 H Pulse Oximetry 95 95 95 07/05/20 14:00 07/05/20 14:30 07/05/20 15:00 Pulse Rate 77 90 93 H Respiratory Rate 25 H 21 Blood Pressure 154/72 H Pulse Oximetry 93 94 98 07/05/20 15:30 07/05/20 16:08 Pulse Rate 95 H 86 Respiratory Rate 23 30 H Blood Pressure 184/84 H Pulse Oximetry 98 98 MDM - Chest Pain <ROSALES Wahl - Last Filed: 07/05/20 20:35> Medical Records Data Attestation: I reviewed the patient's medical records. Lab Data Attestation: I reviewed the patient's lab results. Result diagrams: 07/05/20 12:54 07/06/20 06:45 Labs: Lab Results 07/05/20 07/05/20 07/05/20 Range/Units 12:54 12:54 12:54 WBC 6.0 (4.5-11.0) X10^3/uL RBC 4.04 (4.0-5.2) X10^6/uL Hgb 13.5 (12.0-16.0) g/dL Hct 40.4 (36-46) % MCV 99.9 (80-100) fL MCH 33.5 (26-34) PG MCHC 33.5 (30-36) % RDW 13.3 (11.6-14.8) % Plt Count 301 (150-400) X10^3/uL Neut % (Auto) 60.0 (50-75) % Lymph % (Auto) 23.4 L (25-40) % [place] % (Auto) 10.5 (3-14) % Eos % (Auto) 5.3 H (2-4) % Baso % (Auto) 0.8 (0-2) % Neut # (Auto) 3600 (9101-6297) /uL Lymph # (Auto) 1400 (6982-0344) /uL [place] # (Auto) 600 (0-900) /uL Eos # (Auto) 300 (0-450) /uL Baso # (Auto) 100 (0-100) /uL Sodium 138 (137-145) mmol/L Potassium 5.0 (3.4-5.1) mmol/L Chloride 101 (98-107) mmol/L Carbon Dioxide 27 (22-32) mmol/L BUN 34 H (7-17) mg/dL Creatinine 1.20 H (0.52-1.04) mg/dL Estimated GFR 42.8 L (>60) mL/min BUN/Creatinine Ratio 28.3 H (6-22) Glucose 151 H (80-110) mg/dL Calcium 12.3 H (8.4-10.2) mg/dL Magnesium 1.3 L (1.6-2.3) mg/dL Total Bilirubin 0.7 (0.2-1.3) mg/dL AST 45 H (14-36) IU/L ALT 25 (<35) IU/L Alkaline Phosphatase 133 H (38-126) U/L Total Creatine Kinase 109 (30-135) U/L CK-MB (CK-2) 2.49 H (<2.37) ng/mL CK-MB (CK-2) Rel Index 2.3 (1.5-5.0) % Troponin I < 0.012 (0.01-0.034) ng/mL Total Protein 7.6 (6.3-8.2) g/dL Albumin 4.0 (3.5-5.0) g/dL Globulin 3.6 (1.7-4.1) g/dL Albumin/Globulin Ratio 1.1 (1.0-2.8) Lipase 85 (23-300) U/L Urine RBC (0-5/HPF) Urine WBC (0-5/HPF) Ur Squamous Epith Cells (0-5/HPF) Urine Bacteria (None) Hyaline Casts (None) Ur Culture Indicated? Ur Random Sodium 07/05/20 07/05/20 Range/Units 14:20 14:20 WBC (4.5-11.0) X10^3/uL RBC (4.0-5.2) X10^6/uL Hgb (12.0-16.0) g/dL Hct (36-46) % MCV (80-100) fL MCH (26-34) PG MCHC (30-36) % RDW (11.6-14.8) % Plt Count (150-400) X10^3/uL Neut % (Auto) (50-75) % Lymph % (Auto) (25-40) % [place] % (Auto) (3-14) % Eos % (Auto) (2-4) % Baso % (Auto) (0-2) % Neut # (Auto) (8676-1934) /uL Lymph # (Auto) (0031-9166) /uL [place] # (Auto) (0-900) /uL Eos # (Auto) (0-450) /uL Baso # (Auto) (0-100) /uL Sodium (137-145) mmol/L Potassium (3.4-5.1) mmol/L Chloride (98-107) mmol/L Carbon Dioxide (22-32) mmol/L BUN (7-17) mg/dL Creatinine (0.52-1.04) mg/dL Estimated GFR (>60) mL/min BUN/Creatinine Ratio (6-22) Glucose (80-110) mg/dL Calcium (8.4-10.2) mg/dL Magnesium (1.6-2.3) mg/dL Total Bilirubin (0.2-1.3) mg/dL AST (14-36) IU/L ALT (<35) IU/L Alkaline Phosphatase (38-126) U/L Total Creatine Kinase (30-135) U/L CK-MB (CK-2) (<2.37) ng/mL CK-MB (CK-2) Rel Index (1.5-5.0) % Troponin I (0.01-0.034) ng/mL Total Protein (6.3-8.2) g/dL Albumin (3.5-5.0) g/dL Globulin (1.7-4.1) g/dL Albumin/Globulin Ratio (1.0-2.8) Lipase (23-300) U/L Urine RBC None seen (0-5/HPF) Urine WBC 30-100/hpf H (0-5/HPF) Ur Squamous Epith Cells 0-1 /hpf (0-5/HPF) Urine Bacteria Many (>30) H (None) Hyaline Casts 1-5/lpf (None) Ur Culture Indicated? Specimen cultured Ur Random Sodium Cancelled Urine Dip Bedside Urine Glucose Negative Bedside Urine Bilirubin + 1 Bedside Urine Ketone ++ 40 Urine Specific [place] 1.025 Bedside Urine Occult Blood - Negative Bedside Urine pH 5.5 Bedside Urine Protein +/- 15 Bedside Urine Urobilinogen +/- 1mg Bedside Urine Nitrite + Positive Bedside Urine Leukocytes ++ 125 Esterase Imaging Data Chest x-ray: Radiologist's Impression: [address] [address] XRay Report Signed Patient: Mariana Alves YMR#: [id number] : 5Acct:[id number] Age/Sex: 84 / FDate of Service: 06/30/20 Loc: ED Accession Number: [id number] Procedure: XR acute abdomen series Ordering Provider: Chapin Toribio MD PROCEDURE: XR ACUTE ABDOMEN SERIES INDICATIONS: Persistent nausea/vomiting. Hiatal hernia repair. Asthma. TECHNIQUE: One view chest and two views of the abdomen were acquired. COMPARISON: [facility], CR, CHEST 2 VIEW, 03/04/2008, 15:07. FINDINGS: Surgical changes and devices: Cholecystectomy. Chest: Hyperinflation consistent with COPD. Bibasilar opacities are most likely scars and atelectasis. Heart size is normal. No pleural effusions. No pneumoperitoneum. Abdomen: There is abundant colonic gas and small bowel gas. No air-fluid levels. Metallic densities in pelvis are most likely a side of the patient. No suspicious calcifications. Visualized solid organ contours appear normal. Bones: No suspicious bony lesions. IMPRESSION: Nonspecific, nonobstructive bowel gas pattern. Dictated by: Jaswant Story M.D. on 06/30/2020 at 13:11 Approved by: Jaswant Story M.D. on 06/30/2020 at 13:23 CT scan - abdomen/pelvis: Radiologist's Impression: [place] [address] CT Scan Report Signed Patient: Mariana Alves R#: [id number] : 5Acct:[id number] Age/Sex: 84 / FDate of Service: 07/05/20 Loc: ED Accession Number: [id number] Procedure: CT abdomen pelvis w con Ordering Provider: Toshia Cote PROCEDURE: CT ABDOMEN PELVIS W CON INDICATIONS: Uncontrollable vomiting, history of hiatal hernia TECHNIQUE: After the administration of oral and intravenous contrast, 5 mm thick sections acquired from the diaphragms to the symphysis. 5 mm thick coronal and sagittal reformats were performed. For radiation dose reduction, the following was used: automated exposure control, adjustment of mA and/or kV according to patient size. COMPARISON: [facility], CT, ABDOMEN/PELVIS WITH CONTRAST, 10/21/2013, 10:39. FINDINGS: Image quality: Excellent. ABDOMEN: Lung bases: Lung bases are clear. Punctate pulmonary nodule of the left lung base, unchanged. No pleural effusion. Heart size is normal. Solid organs: Liver is normal in size and enhancement. Gallbladder is surgically absent. Biliary system is non-dilated. Pancreas enhances normally. Spleen is normal in size and enhancement. Heterogeneous appearance of the right adrenal gland is similar to 2013 suggesting a benign etiology. Small calcification in the left adrenal gland. Kidneys enhance symmetrically. No hydronephrosis. Simple right renal cyst is again seen. Peritoneum and bowel: Small hiatal hernia similar to the prior exam. Small calcification at the gastric cardia. No perigastric free fluid. Diverticulosis. No small bowel obstruction. No pneumoperitoneum. Nodes and vessels: No retroperitoneal or mesenteric adenopathy. Aorta and inferior vena cava are normal in caliber. Extensive calcified atherosclerotic plaque. Miscellaneous: Small upper abdominal midline fat containing hernia, unchanged. The hernia neck measures 1.3 cm. PELVIS: Genitourinary: Bladder wall thickness is normal. Small right ovarian cyst in this postmenopausal patient measuring 2.8 cm, remotely 2.2 cm in 2013. Anteverted uterus with likely small calcified fibroid. Miscellaneous: No inguinal hernias or adenopathy. Bones: No suspicious bony lesions. Extensive DDD. No vertebral body compression fractures. IMPRESSION: 1. No acute inflammatory process identified. 2. Small hiatal hernia is stable in appearance. No free fluid. No bowel obstruction. Additional findings: Post cholecystectomy Diverticulosis Small right ovarian cyst Suspect remote adrenal hemorrhage Dictated by: Eriberto Gilmore M.D. on 07/05/2020 at 15:26 Approved by: Eriberto Gilmore M.D. on 07/05/2020 at 15:36 ECG Data Interpretation: 1224: Normal sinus rhythm, rate 98, CO interval 172, QTC 403. No ST elevation or ST depression. No T-wave inversion. EKG also viewed Dr. Whitney per protocol. [facility] Narrative Medical decision making narrative: 84-year-old female presents emergency department for continued vomiting, inability to swallow, and chest pain. Patient failed outpatient treatment with discharge due to continuing symptoms. Differential includes worsening hiatal hernia versus breath esophagus versus foreign object stuck in esophagus versus esophageal lesion/mass. Abdominal CT is non-remarkable for cause of continued vomiting or difficulty swelling. Less likely cardiac in nature given negative troponin and unremarkable EKG. Patient does have slightly worsening kidney function, this may be related to dehydration and lack of fluid given difficulty swallowing. Less likely infectious etiology given normal white blood cell, lack of severe abdominal pain, and lack of infectious findings on abdominal CT. However, urine was concerning for bacteria and white blood cells, sent to culture given lack of symptoms. Patient was admitted under Dr. Up for OBs, surgery was consulted for scope tomorrow. <Shahriar Whitney MD - Last Filed: 07/06/20 13:23> Lab Data Labs: Lab Results 07/05/20 07/05/20 07/05/20 Range/Units 12:54 12:54 12:54 WBC 6.0 (4.5-11.0) X10^3/uL RBC 4.04 (4.0-5.2) X10^6/uL Hgb 13.5 (12.0-16.0) g/dL Hct 40.4 (36-46) % MCV 99.9 (80-100) fL MCH 33.5 (26-34) PG MCHC 33.5 (30-36) % RDW 13.3 (11.6-14.8) % Plt Count 301 (150-400) X10^3/uL Neut % (Auto) 60.0 (50-75) % Lymph % (Auto) 23.4 L (25-40) % [place] % (Auto) 10.5 (3-14) % Eos % (Auto) 5.3 H (2-4) % Baso % (Auto) 0.8 (0-2) % Neut # (Auto) 3600 (5599-5179) /uL Lymph # (Auto) 1400 (9671-0108) /uL [place] # (Auto) 600 (0-900) /uL Eos # (Auto) 300 (0-450) /uL Baso # (Auto) 100 (0-100) /uL Sodium 138 (137-145) mmol/L Potassium 5.0 (3.4-5.1) mmol/L Chloride 101 (98-107) mmol/L Carbon Dioxide 27 (22-32) mmol/L BUN 34 H (7-17) mg/dL Creatinine 1.20 H (0.52-1.04) mg/dL Estimated GFR 42.8 L (>60) mL/min BUN/Creatinine Ratio 28.3 H (6-22) Glucose 151 H (80-110) mg/dL Calcium 12.3 H (8.4-10.2) mg/dL Magnesium 1.3 L (1.6-2.3) mg/dL Total Bilirubin 0.7 (0.2-1.3) mg/dL AST 45 H (14-36) IU/L ALT 25 (<35) IU/L Alkaline Phosphatase 133 H (38-126) U/L Total Creatine Kinase 109 (30-135) U/L CK-MB (CK-2) 2.49 H (<2.37) ng/mL CK-MB (CK-2) Rel Index 2.3 (1.5-5.0) % Troponin I < 0.012 (0.01-0.034) ng/mL Total Protein 7.6 (6.3-8.2) g/dL Albumin 4.0 (3.5-5.0) g/dL Globulin 3.6 (1.7-4.1) g/dL Albumin/Globulin Ratio 1.1 (1.0-2.8) Lipase 85 (23-300) U/L Urine RBC (0-5/HPF) Urine WBC (0-5/HPF) Ur Squamous Epith Cells (0-5/HPF) Urine Bacteria (None) Hyaline Casts (None) Ur Culture Indicated? Ur Random Sodium 07/05/20 07/05/20 Range/Units 14:20 14:20 WBC (4.5-11.0) X10^3/uL RBC (4.0-5.2) X10^6/uL Hgb (12.0-16.0) g/dL Hct (36-46) % MCV (80-100) fL MCH (26-34) PG MCHC (30-36) % RDW (11.6-14.8) % Plt Count (150-400) X10^3/uL Neut % (Auto) (50-75) % Lymph % (Auto) (25-40) % [place] % (Auto) (3-14) % Eos % (Auto) (2-4) % Baso % (Auto) (0-2) % Neut # (Auto) (8712-8591) /uL Lymph # (Auto) (6660-4925) /uL [place] # (Auto) (0-900) /uL Eos # (Auto) (0-450) /uL Baso # (Auto) (0-100) /uL Sodium (137-145) mmol/L Potassium (3.4-5.1) mmol/L Chloride (98-107) mmol/L Carbon Dioxide (22-32) mmol/L BUN (7-17) mg/dL Creatinine (0.52-1.04) mg/dL Estimated GFR (>60) mL/min BUN/Creatinine Ratio (6-22) Glucose (80-110) mg/dL Calcium (8.4-10.2) mg/dL Magnesium (1.6-2.3) mg/dL Total Bilirubin (0.2-1.3) mg/dL AST (14-36) IU/L ALT (<35) IU/L Alkaline Phosphatase (38-126) U/L Total Creatine Kinase (30-135) U/L CK-MB (CK-2) (<2.37) ng/mL CK-MB (CK-2) Rel Index (1.5-5.0) % Troponin I (0.01-0.034) ng/mL Total Protein (6.3-8.2) g/dL Albumin (3.5-5.0) g/dL Globulin (1.7-4.1) g/dL Albumin/Globulin Ratio (1.0-2.8) Lipase (23-300) U/L Urine RBC None seen (0-5/HPF) Urine WBC 30-100/hpf H (0-5/HPF) Ur Squamous Epith Cells 0-1 /hpf (0-5/HPF) Urine Bacteria Many (>30) H (None) Hyaline Casts 1-5/lpf (None) Ur Culture Indicated? Specimen cultured Ur Random Sodium Cancelled Urine Dip Bedside Urine Glucose Negative Bedside Urine Bilirubin + 1 Bedside Urine Ketone ++ 40 Urine Specific [place] 1.025 Bedside Urine Occult Blood - Negative Bedside Urine pH 5.5 Bedside Urine Protein +/- 15 Bedside Urine Urobilinogen +/- 1mg Bedside Urine Nitrite + Positive Bedside Urine Leukocytes ++ 125 Esterase Discharge Plan Departure Patient Disposition: Admitted as Observation Clinical Impression: Hiatal hernia Dysphagia Qualifiers: Dysphagia type: unspecified Qualified Code(s): R13.10 - Dysphagia, unspecified Discharge Date/Time: 07/05/20 17:39 Referrals: Pancho Jacobs MD [Primary Care Provider] - 07/12/20 12:50 pm (appt:07/12 @ 1:00 w/browning nurse practioner for dr jacobs please arrive @ 1250 ) Admit Date/Time: 07/05/20 17:07 Admit Provider: Michelle Up <Shahriar Whitney MD - Last Filed: 07/06/20 13:23> Cosign ED Attending Cosignature Attestation: I was immediately available in the department for consultation. This documentation has been reviewed and I agree with assessment and plan. Supervised by Shahriar Whitney MD
--- NOTE | 2020-07-05 16:44 | P.CONS_ITS ---
History of Present Illness Consult details Date Patient Seen: 07/05/20 Time Patient Seen: 16:44 Chief complaint: NOT ABLE TO SWALLOW FOOD PAIN CHEST DIZZY THROAT Reason for consult: Persistent nausea and vomiting Requesting provider: Michelle Up Narrative: The patient is an elderly woman who is in assisted living facility. She was in the emergency room several days ago for pain and persistent nausea and vomiting. She was discharged from the emergency room but has had persistent nausea and vomiting and returns again today with this persistent complaint. My ability to obtain a history from the patient is very limited due to her being essentially deaf. She hears bits and pieces of things but really can not provide me with much information. She does note that she has had operations done at [facility] but she does not know what they were. According to her chart and the information obtained from her sister, the patient has had a cholecystectomy, appendectomy and repair of a hiatal hernia with the use of mesh. Unfortunately I do not know she also had a Colin fundoplication at the time of that repair which would actually be typical. Meds Home Medications and Allergies Home Medications Medication Instructions Recorded Confirmed Type ALUM HYD/MAG HYD (MAALOX) 30 ml PO #0 03/12/08 History Diltiazem Hydrochloride (Cardizem) 60 mg PO #0 03/12/08 History Diltiazem Hydrochloride (Diltiazem 240 mg PO #0 03/12/08 History 24HR Cd) Esomeprazole Magnesium (Nexium) 40 mg PO #0 03/12/08 History FUROSEMIDE (Lasix) 40 mg PO #0 03/12/08 History Fluticasone Propionate/Salme 1 dose IH BID #0 03/12/08 History (Advair Diskus 100/50) GABAPENTIN (Neurontin) 300 mg PO #0 03/12/08 History HYDROCODONE/ACET 5/500 - 0 PO * UK DOSE/FREQUENCY #0 03/12/08 History (Hydrocodon-Acetaminophen 5-500) IPRATROPIUM INHALER - (ATROVENT) 0 INH * UK DOSE/FREQUENCY #0 03/12/08 History LEVOTHYROXINE SODIUM (Synthroid) 100 mcg PO #0 03/12/08 History LORAZEPAM (Ativan) 0.5 mg PO #0 03/12/08 History Metformin Hydrochloride 500 mg PO #0 03/12/08 History (Glucophage) Montelukast Sodium (Singulair) 10 mg PO #0 03/12/08 History NYSTATIN (Mycostatin) 0 PO * UK DOSE/FREQUENCY #0 03/12/08 History OMEPRAZOLE 10 mg PO #0 03/12/08 History Ondansetron Hydrochloride- (Zofran) 4 mg PO #0 03/12/08 History POTASSIUM CHLORIDE (K-Dur) 20 meq PO BID #0 03/12/08 History Promethazine HCl (Phenergan) 0 PO * UK DOSE/FREQUENCY #0 03/12/08 History SPIRONOLACTONE (Aldactone) 50 mg PO #0 03/12/08 History THEOPHYLLINE (Theophylline 0 PO * UK DOSE/FREQUENCY #0 03/12/08 History Anhydrous) ezetimibe [Zetia] 10 mg PO Q DAY #0 03/12/08 History gabapentin [Neurontin] 600 mg PO #0 03/12/08 History ondansetron 4 mg PO Q4H PRN #14 tab 06/30/20 Rx Allergies Allergy/AdvReac Type Severity Reaction Status Date / Time amoxicillin Allergy Verified 07/05/20 12:25 aspirin Allergy Verified 07/05/20 12:25 Cephalosporins Allergy Verified 07/05/20 12:25 clarithromycin [From Biaxin] Allergy Verified 07/05/20 12:25 levofloxacin [From Levaquin] Allergy Verified 07/05/20 12:25 moxifloxacin [From Avelox] Allergy Verified 07/05/20 12:25 naproxen [From Naprosyn] Allergy Verified 07/05/20 12:25 Penicillins Allergy Verified 07/05/20 12:25 Review of Systems Review of Systems Narrative: Unable to obtain due to her deafness. Her sister is not available to me to review her review of systems. Based on her medication list the patient has significant hypertension, respiratory issues, type 2 diabetes, hypo thyroidism, possible reflux, abnormal lipids, and some kind of chronic pain. Exam Vital Signs (past 8 hours): - 07/05/20 12:23 07/05/20 12:25 07/05/20 12:30 Pulse Rate 102 H 100 H 98 H Respiratory Rate 18 25 H Blood Pressure 135/92 H 144/89 H Pulse Oximetry 99 95 95 07/05/20 13:00 07/05/20 13:30 07/05/20 14:00 Pulse Rate 80 72 77 Respiratory Rate 24 27 H 25 H Blood Pressure 138/66 143/61 H Pulse Oximetry 95 95 93 07/05/20 14:30 07/05/20 15:00 07/05/20 15:30 Pulse Rate 90 93 H 95 H Respiratory Rate 21 23 Blood Pressure 154/72 H Pulse Oximetry 94 98 98 07/05/20 16:08 Pulse Rate 86 Respiratory Rate 30 H Blood Pressure 184/84 H Pulse Oximetry 98 Oxygen Delivery Method Room Air Narrative Exam Narrative: Pleasant woman in no apparent distress. Nearly deaf. Eyes are nonicteric. Pupils small equal round. There are no nodes in the neck or supraclavicular areas. Trachea is midline mobile. Thyroid is not enlarged. Lungs are clear to auscultation though the out breathing sounds are quite distant. I hear no wheezing or rhonchi. Heart regular rate and rhythm. I do not appreciate a murmur gallop. No bruit in the neck. Patient's abdomen is protuberant and soft. She has a very lax abdominal wall. There is a right subcostal scar and a scar that is rather long beneath her umbilicus. I do not a ppreciate any tenderness or hernias. Objective Imaging CT scan - abdomen: My impression: Patient appears to have had a cholecystectomy. She has calcifications near her diaphragm at her esophageal hiatus. This could be related to the mesh that was implanted or could be lymphadenopathy that is calcified. She may have a very small hiatal hernia. There is not really any esophageal dilatation above it. I do not see any acute inflammatory process. Labs Result Diagrams: 07/05/20 12:54 07/05/20 12:54 Labs: Laboratory Results - last 24 hr 07/05/20 07/05/20 07/05/20 12:54 12:54 14:20 WBC 6.0 RBC 4.04 Hgb 13.5 Hct 40.4 MCV 99.9 MCH 33.5 MCHC 33.5 RDW 13.3 Plt Count 301 Neut % (Auto) 60.0 Lymph % (Auto) 23.4 L [place] % (Auto) 10.5 Eos % (Auto) 5.3 H Baso % (Auto) 0.8 Neut # (Auto) 3600 Lymph # (Auto) 1400 [place] # (Auto) 600 Eos # (Auto) 300 Baso # (Auto) 100 Sodium 138 Potassium 5.0 Chloride 101 Carbon Dioxide 27 BUN 34 H Creatinine 1.20 H Estimated GFR 42.8 L BUN/Creatinine Ratio 28.3 H Glucose 151 H Calcium 12.3 H Total Bilirubin 0.7 AST 45 H ALT 25 Alkaline Phosphatase 133 H Total Creatine Kinase 109 CK-MB (CK-2) 2.49 H CK-MB (CK-2) Rel Index 2.3 Troponin I < 0.012 Total Protein 7.6 Albumin 4.0 Globulin 3.6 Albumin/Globulin Ratio 1.1 Lipase 85 Urine RBC None seen Urine WBC 30-100/hpf H Ur Squamous Epith Cells 0-1 /hpf Urine Bacteria Many (>30) H Hyaline Casts 1-5/lpf Ur Culture Indicated? Specimen cultured Assessment & Plan Assessment & Plan narrative: Patient is a woman with multiple medical problems identified above. She is having difficulty swallowing and this could be related to prior surgery. It is unlikely to be due to a hiatal hernia given the small size. More likely it is due to some narrowing. There also may be some motility issues with her esophagus or stomach given her age and multiple medical issues including diabetes. I would like to perform an EGD after she is NPO. I placed it on the schedule for tomorrow. If it is non revealing will consider a barium swallow or Gastrografin swallow to study her swallowing mechanism to see if there is a problem there. Management of her multiple medical problems per the medical team. Will make her NPO after midnight.
[2020-07-05] MEDS: LACTATED RINGERS 1,000 ML 125 ML IV (17:55)
[2020-07-05 18:32] LABS: COVID19 -Nasal RAPID Negative (Negative)
--- NOTE | 2020-07-05 19:34 | PC.NURSE ---
Md aware of high BP's and rash in inguinal folds. Orders to follow.
[2020-07-05 20:28] LABS: Magnesium 1.3 mg/dL (1.6-2.3)
[2020-07-05] MEDS: NYSTATIN POWDER 15GM 1 APPLIC TOP (20:48)
[2020-07-05] MEDS: PANTOPRAZOLE 40 MG VIAL IV (20:49)
[2020-07-05] MEDS: MAGNESIUM SULFATE 2 GM/50 ML PIGGYBACK IV (22:22)
--- NOTE | 2020-07-05 22:29 | PC.NURSE ---
Pt arrived on unit at approx 1740 with sister Edwin who makes many of the medical decisions for pt. She denied N and had no emesis, had two small loose yellow stool, incontinent, and has voided three times. +BT x 4, passing gas. Pt had sips only of broth and apple juice and one cube of jello. She was hypertensive initially 170-180's/90-110's but has come down. She is A and O x 4 forgetful. She is to be NPO at midnight. She denies pain.
[2020-07-06] VITALS (22 sets, daily range): BP systolic 117–176; BP diastolic 57–96; PULSE 56–98; RESP 14–22; TEMP 36.1–37.3; O2SAT 93–99; BMI 21.8
--- NOTE | 2020-07-06 00:16 | P.HP_ITS ---
History of Present Illness History of Present Illness Date Patient Seen: 07/05/20 Time Patient Seen: 20:47 Chief complaint: NOT ABLE TO SWALLOW FOOD PAIN CHEST DIZZY THROAT Narrative: Ms. Mariana Alves is an 84-year-old female who is extremely hard of hearing and has the past medical history significant for diabetes type 2, asthma and hiatal hernia who presents to the ER with her sister with persistent nausea and vomiting. The patient was seen in the emergency department 5 days ago with nausea vomiting was evaluated in discharge to home to return today with complaints of nausea vomiting, difficulty swallowing complaining of food sticking in her throat. The patient has apparently been able to consume liquids but no solid foods. The patient is a difficult historian though she lives in an assisted living facility and most information is obtained in conjunction with the patient's sister in the ER and is no longer available for interview. The patient has a history of hiatal hernia with a repair but the patient cannot relate further information. She reports no fevers or chills and has had no recent COVID-19 exposure. She denies nasal congestion or sore throat. She has had no chest pain and denies palpitations. She denies complaints of shortness of breath cough, wheezing or dyspnea on exertion with a history of asthma. She describes epigastric discomfort and nausea with eating. She has had no problems with the constipation or diarrhea and tell arriving on the acute care floor where she had an episode incontinent diarrhea. She denies urinary symptoms with no urgency frequency or burning. Upon arrival to the ER the patient's heart rate of 102 with a blood pressure 135/90 respirations of 18 saturating 99% on room air. A CT of the abdomen is obtained finding of small hiatal hernia but no acute inflammatory processes. X-ray of the abdomen taken on on her prior visit on 06/30/2020 demonstrates a nonobstructive gas pattern. On laboratory analysis she has white count of 6.0, hemoglobin of 13.5, hematocrit 40.4 and platelets of 301. Her electrolytes are all within normal limits and she has a BUN of 34 and a creatinine of 1.2. Her nonfasting glucose is 151. Her total bilirubin is 0.7 with an AST of 45, ALT 25 and alkaline phosphatase 133. Her albumin is 4.0. Her total CK is 109 with CK- MB of 2.49 with an index of 2.3%. Her troponin is negative at 0.012. Urinalysis positive for WBCs and bacteria. In the ER the patient received Zofran with improvement in symptoms and was started on lactated Ringer's 125 cc/hour. Dr. Benz was contacted through the ER and agreed to consult with tentative plan for endoscopy tomorrow. The patient is admitted to medicine service for intractable nausea and vomiting related to esophageal narrowing. Patient History Medical History Asthma (Acute) Hiatal hernia (Acute) Hypertension (Inactive) Type 2 diabetes mellitus (Acute) Surgical History History of appendectomy (Acute) History of cholecystectomy (Acute) History of repair of hiatal hernia (Acute) Family & Social History Family History (Updated 07/06/20 @ 02:18 by ROSALES Keane) Father Asthma Mother Laryngeal disorder Stomach disorder Social History: household members none Prior Living Arrangements Assisted Living Safety & Behavioral: Feels Safe in Current Yes Environment Been Physically Hurt or No Threatened By a Person Suicidal Ideation Description None Suicide Plan Description No Plan Tobacco & Substance use: Smoking Status Never smoker alcohol intake current alcohol intake frequency holiday/special occasion Substance Use Type does not use Meds Home Medications and Allergies Home Medications Medication Instructions Recorded Confirmed Type acetaminophen 650 mg PO TID 07/05/20 07/05/20 History albuterol sulfate [Ventolin HFA] 1 inh INHALATION Q4HR PRN 07/05/20 07/05/20 History calcium carbonate-vitamin D3 1 tab PO BID 07/05/20 07/05/20 History cetirizine 5 mg PO DAILY 07/05/20 07/05/20 History famotidine 20 mg PO DAILY 07/05/20 07/05/20 History fluticasone propion-salmeterol 1 inh INHALATION BID 07/05/20 07/05/20 History [Advair Diskus] fluticasone propionate 1 spray INTRANASAL BID 07/05/20 07/05/20 History ketotifen fumarate [Allergy Eye 1 drp EYE-BOTH DAILY PRN 07/05/20 07/05/20 History (ketotifen)] levothyroxine 75 mcg PO DAILY 07/05/20 07/05/20 History metformin 500 mg PO QAM 07/05/20 07/05/20 History multivitamin with minerals [Daily 1 tab PO DAILY 07/05/20 07/05/20 History Multivitamin-Minerals] nystatin 1 applic TOPICAL DAILY PRN 07/05/20 07/05/20 History ondansetron 4 mg TRANSLINGUAL Q4HR PRN 07/05/20 07/05/20 History polyethylene glycol 3350 [Miralax] 17 g PO DAILY PRN 07/05/20 07/05/20 History polyvinyl alcohol [Artificial 1 drp EYE-BOTH DAILY 07/05/20 07/05/20 History Tears (polyvin alc)] Allergies Allergy/AdvReac Type Severity Reaction Status Date / Time amoxicillin Allergy Verified 07/05/20 12:25 aspirin Allergy Verified 07/05/20 12:25 Cephalosporins Allergy Verified 07/05/20 12:25 clarithromycin [From Biaxin] Allergy Verified 07/05/20 12:25 levofloxacin [From Levaquin] Allergy Verified 07/05/20 12:25 moxifloxacin [From Avelox] Allergy Verified 07/05/20 12:25 naproxen [From Naprosyn] Allergy Verified 07/05/20 12:25 Penicillins Allergy Verified 07/05/20 12:25 Review of Systems Review of Systems ROS: Yes All systems reviewed with the patient and are negative except as otherwise documented Exam Vital Signs (past 8 hours): - 07/05/20 17:40 07/05/20 20:35 07/05/20 20:49 Temperature 98.2 F 97.9 F Pulse Rate 104 H 76 Respiratory Rate 18 17 Blood Pressure 171/113 H 146/66 H Pulse Oximetry 97 97 90 L 07/06/20 00:05 Temperature 97.5 F L Pulse Rate 71 Respiratory Rate 18 Blood Pressure 144/62 H Pulse Oximetry 93 Oxygen Delivery Method Room Air Oxygen Flow Rate 0 Narrative Exam Narrative: GENERAL APPEARANCE: well developed, well nourished, in no acute distress. HEENT: Normocephalic, PERRLA, conjunctiva clear, EOMs intact without nystagmus, no sinus tenderness to percussion, no rhinorrhea, mucous membranes are moist and pink without lesions or exudate. NECK/THYROID: neck supple, no JVD, no carotid bruit, no thyromegaly, trachea midline. LYMPH NODES: no cervical or supraclavicular lymphadenopathy. SKIN: [place], warm and dry, no visible lesions, rashes, ulcerations or petechiae. HEART: regular rate and rhythm, S1-S2, no murmur, no rubs or gallops, brisk capillary refill, no edema LUNGS: clear to auscultation bilaterally, no coarseness crackles or wheezing, no cough present CHEST: Symmetrical movement, no accessory muscle use, good tidal volume. ABDOMEN: Soft, no distention, epigastric tenderness, small umbilical hernia,, no guarding or peritoneal signs, no organomegaly, no flank or suprapubic tenderness, active bowel tones. BACK: Normal curvature, nontender to palpation. EXTREMITIES: moves all extremities, strength is 5/5 and symmetrical, no deformities or joint effusions. NEUROLOGIC: AAO x3, extremely hard of hearing with no other focal neurologic deficits, sensation intact to light touch. PSYCH: Good eye contact, cooperative with stable behavior Objective Labs Result Diagrams: 07/05/20 12:54 07/05/20 12:54 Labs: Laboratory Results - last 24 hr 07/05/20 07/05/20 07/05/20 12:54 12:54 12:54 WBC 6.0 RBC 4.04 Hgb 13.5 Hct 40.4 MCV 99.9 MCH 33.5 MCHC 33.5 RDW 13.3 Plt Count 301 Neut % (Auto) 60.0 Lymph % (Auto) 23.4 L [place] % (Auto) 10.5 Eos % (Auto) 5.3 H Baso % (Auto) 0.8 Neut # (Auto) 3600 Lymph # (Auto) 1400 [place] # (Auto) 600 Eos # (Auto) 300 Baso # (Auto) 100 Sodium 138 Potassium 5.0 Chloride 101 Carbon Dioxide 27 BUN 34 H Creatinine 1.20 H Estimated GFR 42.8 L BUN/Creatinine Ratio 28.3 H Glucose 151 H Calcium 12.3 H Magnesium 1.3 L Total Bilirubin 0.7 AST 45 H ALT 25 Alkaline Phosphatase 133 H Total Creatine Kinase 109 CK-MB (CK-2) 2.49 H CK-MB (CK-2) Rel Index 2.3 Troponin I < 0.012 Total Protein 7.6 Albumin 4.0 Globulin 3.6 Albumin/Globulin Ratio 1.1 Lipase 85 Urine RBC Urine WBC Ur Squamous Epith Cells Urine Bacteria Hyaline Casts Ur Culture Indicated? Ur Random Sodium COVID-19 PCR 07/05/20 07/05/20 07/05/20 14:20 14:20 17:27 WBC RBC Hgb Hct MCV MCH MCHC RDW Plt Count Neut % (Auto) Lymph % (Auto) [place] % (Auto) Eos % (Auto) Baso % (Auto) Neut # (Auto) Lymph # (Auto) [place] # (Auto) Eos # (Auto) Baso # (Auto) Sodium Potassium Chloride Carbon Dioxide BUN Creatinine Estimated GFR BUN/Creatinine Ratio Glucose Calcium Magnesium Total Bilirubin AST ALT Alkaline Phosphatase Total Creatine Kinase CK-MB (CK-2) CK-MB (CK-2) Rel Index Troponin I Total Protein Albumin Globulin Albumin/Globulin Ratio Lipase Urine RBC None seen Urine WBC 30-100/hpf H Ur Squamous Epith Cells 0-1 /hpf Urine Bacteria Many (>30) H Hyaline Casts 1-5/lpf Ur Culture Indicated? Specimen cultured Ur Random Sodium 80 COVID-19 PCR Negative Assessment & Plan Assessment & Plan narrative: This is an 84-year-old female patient who was seen in the ER 5 days ago and returns today the persistent nausea vomiting and difficulties swallowing with food sticking in her throat. 1. Nausea vomiting and impaired swallowing please secondary to esophageal narrowing, acute, present on admission, active -history of prior hiatal hernia and hiatal hernia repair, CT identifies presents small hiatal hernia but no other acute inflammatory processes. -patient has persistent nausea vomiting unresponsive to outpatient therapy. -Dr. Benz, general surgery, is contacted through the ER and agrees to consult, we appreciate his evaluation recommendations. -Dr. Benz recommends endoscopy tomorrow, patient will be NPO at midnight -patient was started on lactated Ringer's the emergency department her she has a potassium of 5.0. Will change consultant to normal saline at 100 cc/hour -for the surgical orders per Dr. Benz. 2. Hypo magnesium, acute, present on admission, active -patient has a serum magnesium level of 1.3. -ordered magnesium 2 g IV, will recheck magnesium level in the morning. 3. Diabetes type 2 with hyperglycemia,, chronic, stable -patient with a blood sugar of 151 on admission labs. -patient takes metformin 500 mg once daily which is on hold while NPO. -fingerstick blood sugars every 6 hours, coverage with correctional insulin low- dose range. -will obtain a hemoglobin A1c. 4. Asthma, mild persistent, chronic, stable -Patient denies shortness of breath cough or wheezing. No wheezing on exam. -will continue home regimen of Advair Diskus and albuterol inhaler 1-2 puffs every 4 hours as needed. VTE prophylaxis: Bilateral SCDs IV fluid: Normal saline 100 cc/hour Diet: Clear liquid diet, NPO at midnight. Code status: Full code, patient designates Edwin her sister to be her surrogate decision maker. The patient is admitted to the hospital for control of nausea vomiting with planned endoscopy in the morning by Dr. Benz. The patient is admitted as observation with expected length of stay to be less than 2 midnights. COVID-19 COVID-19 status: Negative Result date/Date tested (Pos, Neg/Pending): 07/05/20 Scores GCS [place] coma scale eye opening: Spontaneous [place]ie coma scale verbal response: Orientated [place] coma scale motor response: Obey commands [place] coma scale total score: 15
[2020-07-06] MEDS: SODIUM CHLORIDE 0.9% 1,000 ML 100 ML IV ×2 (02:34→14:58)
[2020-07-06 07:01] LABS: Alanine Aminotransferase 26 IU/L (<35); Albumin 3.7 g/dL (3.5-5.0); Albumin Globulin Ratio 1.1 (1.0-2.8); Alkaline Phosphatase 115 U/L (38-126); Aspartate Aminotransferase 52 IU/L (14-36); BUN Creatinine Ratio 24.7 (6-22); Bilirubin Total 0.6 mg/dL (0.2-1.3); Blood Urea Nitrogen 23 mg/dL (7-17); Calcium 10.7 mg/dL (8.4-10.2); Carbon Dioxide 30 mmol/L (22-32); Chloride 103 mmol/L (98-107); Estimated Glomerular Filt Rate 57.4 mL/min (>60); Globulin 3.3 g/dL (1.7-4.1); Glucose 118 mg/dL (80-110); HEMOLYSIS 16 (0-50); Magnesium 1.7 mg/dL (1.6-2.3); Potassium 5.1 mmol/L (3.4-5.1); Sodium 138 mmol/L (137-145)
[2020-07-06 07:06] LABS: Hemoglobin A1C% w Est Avg Glu 7.7 % (4.0-6.0)
[2020-07-06] MEDS: MAGNESIUM SULFATE 2 GM/50 ML PIGGYBACK IV (07:37)
[2020-07-06 08:01] LABS: TSH w/ Reflex to FT4 8.31 uIU/mL (0.47-4.68)
[2020-07-06] MEDS: INSULIN ASPART 100 UNIT/ML INSULN PEN SUBCUT (08:05)
[2020-07-06] MEDS: ONDANSETRON 4 MG/2 ML INJ IV (08:11)
[2020-07-06 08:26] LABS: Free T4, Direct Thyroxine 1.57 ng/dL (0.78-2.19)
--- NOTE | 2020-07-06 08:55 | CM.DANOTE ---
Addendum entered by Soco Silva R.N. 07/06/20 11:33: Spoke to daughter, Shawnee, regarding patient's living situation, and condition, and picking her up if she is discharged today. Edwin, is also patient's sister, and is POA. She stated, we don't want her to go home unless they resolve the problem. She mentioned her sister hasn't been able to eat, or swallow since June 28, and has been to the emergency before. It was indicated during team rounds that she may be getting an esophageal dialation. Sister indicated, she hopes that they can repair the hernia before sending her home, otherwise, she will be going through the whole process all over again. Confirmed that one of her sisters can transport her back to [facility] when she is stable. Gave patient's sisters this director of casework department's phone number with any questions. Edwin indicated that patient is having her procedure at 3:00, and can see if she will be discharged after that. Let patient's sister know that if patient is discharged, pm nurse can call and update, as it may be after care management leaves. Original Note: DCP: Case received, EMR reviewed and met with patient. Introduced self and role. Was able to obtain information from patient regarding her baseline activity level prior to hospitalization, and living situation. DCP assessment completed with information currently available. Patient is an 84 year old female who admitted yesterday afternoon to the care of the hospitalist team. PCP: Dr. Kincaid. Payer: confirmed: Medicare/Medicaid. Patient came to the hospital via private vehicle secondary to having difficulty with swallowing. She had been to the ER recently with the same symptoms. She holds diagnosis of hiatal hernia. She was consulted with surgeon, and is scheduled to have EGD today. Patient is alert and oriented, pleasant. She resides at [facility] in [place]. She has two sisters that are involved, Shawnee and Edwin. Patient uses a FWW at baseline. She stated that she does have medication assistance services, as well as assistance with showers. P: DCP to continue to follow. Patient should be able to return to [facility] when stable. Soco Silva RN/[employer] Supervisor
[2020-07-06] MEDS: FLUTICASONE 120 SPRAY/16 GM SPRAY.SUSP NASAL ×2 (10:58→20:32)
[2020-07-06] MEDS: POLYVINYL ALCOHOL DROPS 1 DROPS EYE-BOTH (10:58)
[2020-07-06] MEDS: FAMOTIDINE 20 MG TABLET PO (10:58)
[2020-07-06] MEDS: LORATADINE 10 MG TABLET 5 MG PO (10:59)
[2020-07-06] MEDS: NYSTATIN POWDER 15GM 1 APPLIC TOP ×2 (10:59→20:31)
[2020-07-06] MEDS: LEVOTHYROXINE 75 MCG TABLET PO (11:00)
[2020-07-06] MEDS: KETOROLAC 15 MG/ML VIAL IV (11:00)
[2020-07-06] MEDS: FLUTICASONE/SALMETEROL 100/50 60 PUFF DISKUS INH ×2 (11:20→21:12)
--- NOTE | 2020-07-06 13:39 | CM.DPC ---
Addendum entered by Soco Silva R.N. 07/06/20 13:55: Spoke to Maty at [facility]. Confirmed that for patient to return to facility, she needs to be assessed, and procedure is not until this pm. Will update Dr. Up, as well. Maty will be able to come here tomorrow to evaluate. Maty confirmed that patient has not been able to swallow, and has vomited when attempting to take in any food, so she has concerns about accepting her back until she is stable with her swallowing. Original Note: DCP Cont: Called [facility] to touch base with policy director, Maty. She is unavailable, but guest relations receptionist took a message, and she will call this bottle caser back when able. Did received their fax number, which is: [phone], when discharge orders are complete. Gave the fax number to Екатерина, nurse wound care, if patient gets discharged today, will fax med sheets over to them and discharge summary. Patient is not having her procedure until 1500. P: DCP to continue to follow. Patient could be discharged today, but will depend upon surgical procedure. Soco Silva RN/Bridge Carpenter
--- NOTE | 2020-07-06 14:50 | PM.PN.1 ---
Subjective Subjective Date Patient Seen: 07/06/20 Interval history: Mariana Alves is an 84-year-old female who is extremely hard of hearing and has the past medical history significant for diabetes mellitus type 2, asthma and hiatal hernia who presented to the ED with her sister with persistent nausea and vomiting and feeling of food sticking in her throat. Patient is resting comfortably in bed. She reports that she is having difficulty swallowing or keeping anything down. She has been NPO after midnight for planned endoscopy later this afternoon. Continue monitoring blood sugars every 6 hours while NPO. She has no complaints other than nausea which she was just treated for by nursing and mild headache that she has had for 1 week. She denies chest pain, shortness of breath, abdominal pain, vomiting, fever, chills, dysuria, diarrhea or constipation. She is voiding without difficulty. She is up ambulating with assistance. Exam Vital Signs (past 8 hours): - 07/06/20 07:00 07/06/20 08:00 07/06/20 11:00 Temperature 97.0 F L Pulse Rate 73 Respiratory Rate 16 Blood Pressure 149/74 H Pulse Oximetry 93 97 97 07/06/20 11:20 07/06/20 12:37 Temperature 97.4 F L Pulse Rate 59 L 60 Respiratory Rate 16 17 Blood Pressure 123/60 Pulse Oximetry 97 96 Oxygen Delivery Method Room Air Oxygen Flow Rate 0 Narrative Exam Narrative: General: Elderly female lying in bed and in no acute distress, well-developed, well-nourished, appropriately interactive HEENT: Normocephalic, atraumatic. External ears without defect. Pupils equal, round, and reactive to light and accommodation. Anicteric sclerae, moist conjunctivae, and no lid lag. Oropharynx free of erythema and cobble stoning with moist mucosa. Significantly hard of hearing. Neck: Supple with full range of motion. No lymphadenopathy or thyromegaly. Cardiovascular: Regular rate and rhythm without murmurs, rubs, or gallops appreciated. Pulmonary: Clear to auscultation bilaterally without crackles, wheezes, or rhonchi. Normal respiratory effort with no use of accessory muscles. Abdomen: Soft, bowel sounds present, nontender, nondistended. No hepatosplenomegaly or masses appreciated. Extremities: No clubbing, cyanosis, or edema. Skin: Normal temperature, turgor, and texture; no rash, ulcers, or subcutaneous nodules appreciated. Neurological: Cranial nerves grossly intact. Psychiatric: Normal mood and affect. Alert and oriented to person, place, and time. Probable mild cognitive impairment with short term memory impairment. Objective Labs Result Diagrams: 07/05/20 12:54 07/06/20 06:45 Labs: Laboratory Results - last 24 hr 07/05/20 07/05/20 07/05/20 12:54 14:20 14:20 Sodium Potassium Chloride Carbon Dioxide BUN Creatinine Estimated GFR BUN/Creatinine Ratio Glucose Hemoglobin A1c Calcium Magnesium 1.3 L Total Bilirubin AST ALT Alkaline Phosphatase Total Protein Albumin Globulin Albumin/Globulin Ratio TSH Free T4 Urine RBC None seen Urine WBC 30-100/hpf H Ur Squamous Epith Cells 0-1 /hpf Urine Bacteria Many (>30) H Hyaline Casts 1-5/lpf Ur Culture Indicated? Specimen cultured Ur Random Sodium Cancelled COVID-19 PCR 07/05/20 07/06/20 07/06/20 17:27 06:45 06:45 Sodium 138 Potassium 5.1 Chloride 103 Carbon Dioxide 30 BUN 23 H Creatinine 0.93 Estimated GFR 57.4 L BUN/Creatinine Ratio 24.7 H Glucose 118 H Hemoglobin A1c 7.7 H Calcium 10.7 H Magnesium Total Bilirubin 0.6 AST 52 H ALT 26 Alkaline Phosphatase 115 Total Protein 7.0 Albumin 3.7 Globulin 3.3 Albumin/Globulin Ratio 1.1 TSH Free T4 Urine RBC Urine WBC Ur Squamous Epith Cells Urine Bacteria Hyaline Casts Ur Culture Indicated? Ur Random Sodium COVID-19 PCR Negative 07/06/20 07/06/20 06:45 07:15 Sodium Potassium Chloride Carbon Dioxide BUN Creatinine Estimated GFR BUN/Creatinine Ratio Glucose Hemoglobin A1c Calcium Magnesium 1.7 Total Bilirubin AST ALT Alkaline Phosphatase Total Protein Albumin Globulin Albumin/Globulin Ratio TSH 8.31 H Free T4 1.57 Urine RBC Urine WBC Ur Squamous Epith Cells Urine Bacteria Hyaline Casts Ur Culture Indicated? Ur Random Sodium COVID-19 PCR Assessment & Plan Assessment & Plan narrative: Mariana Alves is an 84-year-old female who is extremely hard of hearing and has the past medical history significant for diabetes mellitus type 2, asthma and hiatal hernia who presented to the ED with her sister with persistent nausea and vomiting and feeling of food sticking in her throat. 1. Persistent nausea, vomiting and impaired swallowing, acute, present on admission. Active. -Patient presented with persistent nausea and vomiting unresponsive to outpatient therapy. -History of prior hiatal hernia and hiatal hernia repair. CT abdomen and pelvis demonstrated small hiatal hernia but no other acute inflammatory processes. -Continue famotidine 20 mg daily once able to take in PO intake. -Consulted general surgery, Dr. Benz, who will perform EGD today.Patient NPO since midnight. We appreciate his evaluation recommendations. 2. Acute hypomagnesium, present on admission. Resolved. -Initial magnesium level 1.3. Received magnesium 2 g IV x 1. Magnesium level now 1.7. -Continue to monitor magnesium level daily and replete as necessary. 3. Diabetes mellitus type 2, non-insulin, chronic, present on admission. Stable. -Hemoglobin A1C 7.7% indicative of fair glycemic control. -Held metformin. -Continue blood glucose checks every 6 hours while NPO and low dose correctional insulin low-dose range. 4. Asthma, mild persistent, chronic, present admission. Stable. -Patient denies shortness of breath cough or wheezing. -Continue home Advair Diskus and albuterol inhaler 1-2 puffs every 4 hours as needed. 5. Hypothyroidism, chronic, present on admission. Stable. -TSH elevated at 8 with normal T4 at 1.57. -Continue home levothyroxine 75 mcg daily. Code status: Full code, patient designates Edwin her sister to be her surrogate decision maker. VTE prophylaxis: Bilateral SCDs Disposition: Patient will likely discharge to [facility] in 1-2 days pending EGD.
--- NOTE | 2020-07-06 15:57 | PC.NURSE ---
TAKEN FOR EGD
--- NOTE | 2020-07-06 16:09 | PM.PREOP ---
Pre-operative Note COVID-19 COVID-19 status: Negative Result date/Date tested (Pos, Neg/Pending): 07/05/20 Interval Note History & Physical reviewed/Exam performed by Physician: Yes Changes to H&P: Yes H&P completed within 30 days and has changed as indicated here:: I have discussed the risk of bleeding and perforation(which would probably require a major operation to repair). All questions answered. Will proceed with egd and possible dilitation with sedation ASA Class (for procedural sedation): III
[2020-07-06] MEDS: MIDAZOLAM 5 MG/5 ML VIAL IV (16:48)
[2020-07-06] MEDS: LIDOCAINE 4% SOLN 50 ML 20 ML TOP (16:48)
--- NOTE | 2020-07-06 16:48 | P.OP.ENDO_ITS ---
Operative Date/Time/Diagnoses Date of procedure: 07/06/20 Time of procedure: 16:48 Pre-op diagnosis: Persistent nausea and vomiting. Post-op diagnosis: same (Probable obstruction from food bolus(meat)) Procedure & Clinicians Study performed: EGD and passage of food bolus principally into the stomach. Same procedure as scheduled: Yes Indications: Patient unable to eat or drink 4 days. Feels like food is stuck at times when she swallows Surgeon: Augustus Benz Procedure Notes SCOAP/Timeout: Performed Procedure in detail: The patient had topical anesthetic applied to oropharynx. She was placed in left lateral decubitus position and underwent cautious IV sedation directed by the surgeon consisting of fentanyl and Versed. A bite block was inserted and the scope was advanced through it into the esophagus. Cord structures were normal The esophagus was unremarkable until I reach the distal esophagus. There was a large food bolus occupying about half of the lumen laying in the esophagus. Observe able to negotiate around it and into the stomach. There was a turn going into the stomach as might be expected after a hiatal hernia repair with a Colin fundoplication. The GE junction looked as though it was at about the location of her diaphragm. . GE junction was noted at 35 cm from the incisors. The stomach insufflated well. There were no lesions seen in the body, antrum or at the incisura. The pyloric channel was patent. The duodenum was unremarkable to the 4th part. The scope was brought back into the stomach and retroflexed. The proximal stomach had the appearance of a prior Colin fundoplication but there were no lesions or ulcers seen. The scope was straightened and brought out through the esophagus again. I attempted to remove the food bolus with the Gaitan net that proved unsuccessful. A snare was inserted and the piece of meat was chopped up into pieces. It easily slice through the meat which appeared to be fairly well digested. I was then able to push the pieces of meat and irrigate them into the stomach. When the evacuation of the food from the esophagus was complete the scope was removed after suctioning the fluid. No other lesions were seen. The scope was removed and the patient tolerated the procedure well. Scope withdrawal time: Not applicable Sedation minutes: 16 Findings: hiatal hernia (No evidence of a significant hiatal hernia. Patient appears to have had a Colin fundoplication or similar procedure) and other findings (Food bolus in the esophagus presumptively creating a ball-valve effect blocking the esophagus when she was upright and attempting to swallow) Specimen(s): none sent Complications: none Post-procedure Recommendations: Other recommendation (Begin full liquids. If tolerated may be advanced to a pureed diet. If patient tolerates may be successfully di scharged.) Follow up: as needed Disposition: PACU
[2020-07-06] MEDS: fentaNYL 250 MCG/5 ML INJ IV (16:49)
--- NOTE | 2020-07-06 17:02 | SUR.PHASEI ---
REPORT CALLED TO RN JERMAIN, PT TO ROOM, HAND OFF OF CARE TO RN.
[2020-07-06] MEDS: LACTATED RINGERS 1,000 ML 42 ML IV (17:37)
--- NOTE | 2020-07-06 18:26 | PC.NURSE ---
PATIENT GIVEN HER FULL LIQUIDS FOR DINNER,PER DR DYE ORDERS AND VERBAL ORDER
[2020-07-07] VITALS (8 sets, daily range): BP systolic 128–139; BP diastolic 51–68; PULSE 57–69; RESP 18–20; TEMP 36.1–36.6; O2SAT 93–99
--- NOTE | 2020-07-07 | DI.RAD.S_ITS ---
PROCEDURE: FL BARIUM SWALLOW W SPEECH INDICATIONS: Food sticking COMPARISON: None. TECHNIQUE: Examination was conducted in conjunction with speech pathology per standard protocol. In the lateral projection, filming was performed of the patient swallowing. AP projection filming may also be performed with patient swallowing. COMPARISON: FINDINGS: Function: Absent dentition. The oral preparatory phase appears normal, with proper containment. The subsequent oral propulsive phase, pharyngeal phase, and esophageal phase of swallowing also appear normal with all proffered substances. Silent laryngeal penetration and tracheal aspiration was visualized, in particular within thin liquid and nectar thick barium consistencies.. No pathologic vallecular pooling. Morphology: No cricopharyngeal bar is identified. No cervical esophageal webs. No Zenker's diverticulum. No strictures. IMPRESSION: Tracheal aspiration as above Dictated by: Aristides Pulliam M.D. on 07/07/2020 at 13:14 Approved by: Aristides Pulliam M.D. on 07/07/2020 at 13:15
[2020-07-07 06:25] LABS: BUN Creatinine Ratio 24.1 (6-22); Blood Urea Nitrogen 20 mg/dL (7-17); Calcium 9.2 mg/dL (8.4-10.2); Carbon Dioxide 29 mmol/L (22-32); Chloride 104 mmol/L (98-107); Estimated Glomerular Filt Rate > 60.0 mL/min (>60); Glucose 113 mg/dL (80-110); HEMOLYSIS 32 (0-50); Magnesium 1.5 mg/dL (1.6-2.3); Potassium 4.5 mmol/L (3.4-5.1); Sodium 136 mmol/L (137-145)
[2020-07-07] MEDS: FLUTICASONE/SALMETEROL 100/50 60 PUFF DISKUS INH (07:18)
[2020-07-07] MEDS: NYSTATIN POWDER 15GM 1 APPLIC TOP (08:56)
[2020-07-07] MEDS: LORATADINE 10 MG TABLET 5 MG PO (08:56)
[2020-07-07] MEDS: FLUTICASONE 120 SPRAY/16 GM SPRAY.SUSP NASAL (08:56)
[2020-07-07] MEDS: FAMOTIDINE 20 MG TABLET PO (08:57)
[2020-07-07] MEDS: LEVOTHYROXINE 75 MCG TABLET PO (08:57)
[2020-07-07] MEDS: POLYVINYL ALCOHOL DROPS 1 DROPS EYE-BOTH (08:57)
--- NOTE | 2020-07-07 09:08 | CM.DPC ---
Addendum entered by Soco Silva R.N. 07/07/20 12:14: Spoke to Evelina Harrison, she is patient's [employer] therapeutic case manager through [employer]. Asked her what her role is for patient, and she indicated that she assists patient to doctor's appointments, and helps with any other resources needed. Her phone number is: [phone]. Confirmed that patient is not under any home health services as of yet. Addendum entered by Soco Silva R.N. 07/07/20 10:26: Updated sister Edwin, who is POA, that patient is being discharged today. Her correct phone number is: [phone]. Number listed on face sheet is no longer in service, and sent admission counselors an email with correct phone number. Discussed home health, and sister wants to research agencies, and will call this therapeutic case manager back. Stated that patient also has a therapeutic case manager/DRIVER LICENSE AGENT, that sees her through [employer] program. Face to face was signed. Sister is aware that Maty is coming this afternoon to assess patient. Original Note: DCP Cont: Patient will most likely be discharged today. She is being introduced to diet. Called Maty, skilled nursing facilities professional at [facility]. She is planning on coming this afternoon to evaluate patient. Sisters will be transporting home. COVID was done on 07/05, after 1700. Discussed possible home health for nursing, and speech eval. Dr. Up is also looking in to her urine results. Faxed Maty copy of COVID results, H&P, and surgical procedure information from yesterday. P: DCP to continue to follow. Will discuss more during team rounds, regarding needs, diet information. Maty will be here to assess patient this afternoon. Will have Dr. Up sign a face to face for home health. Soco Silva RN/Veterinarian Helper
[2020-07-07] MEDS: MAGNESIUM CHLORIDE 64 MG TABLET PO (11:22)
--- NOTE | 2020-07-07 11:57 | PC.NURSE ---
Addendum entered by Charla Chowdary R.N. 07/07/20 14:43: Patient to be sent home on [facility] diet, and cup w/ sips, no straws. Addendum entered by Charla Chowdary R.N. 07/07/20 12:20: Patient back from swallow eval at 1215 Addendum entered by Charla Chowdary R.N. 07/07/20 12:00: Patient is able to swallow pills with water, with no difficulty. Original Note: Patient is alert and oriented, [place]. Patient VSS, lung sounds clear. Patient has been able to tolerated full liquid diet this AM. Patient went for Barium swallow eval at 1150.
--- NOTE | 2020-07-07 11:58 | PM.DS.1 ---
History of Present Illness History of Present Illness Date Patient Seen: 07/05/20 Chief complaint: NOT ABLE TO SWALLOW FOOD PAIN CHEST DIZZY THROAT Narrative: Written by Jos CABA: Ms. Mariana Alves is an 84-year-old female who is extremely hard of hearing and has the past medical history significant for diabetes type 2, asthma and hiatal hernia who presents to the ER with her sister with persistent nausea and vomiting. The patient was seen in the emergency department 5 days ago with nausea vomiting was evaluated in discharge to home to return today with complaints of nausea vomiting, difficulty swallowing complaining of food sticking in her throat. The patient has apparently been able to consume liquids but no solid foods. The patient is a difficult historian though she lives in an assisted living facility and most information is obtained in conjunction with the patient's sister in the ER and is no longer available for interview. The patient has a history of hiatal hernia with a repair but the patient cannot relate further information. She reports no fevers or chills and has had no recent COVID-19 exposure. She denies nasal congestion or sore throat. She has had no chest pain and denies palpitations. She denies complaints of shortness of breath cough, wheezing or dyspnea on exertion with a history of asthma. She describes epigastric discomfort and nausea with eating. She has had no problems with the constipation or diarrhea and tell arriving on the acute care floor where she had an episode incontinent diarrhea. She denies urinary symptoms with no urgency frequency or burning. Upon arrival to the ER the patient's heart rate of 102 with a blood pressure 135/90 respirations of 18 saturating 99% on room air. A CT of the abdomen is obtained finding of small hiatal hernia but no acute inflammatory processes. X-ray of the abdomen taken on on her prior visit on 06/30/2020 demonstrates a nonobstructive gas pattern. On laboratory analysis she has white count of 6.0, hemoglobin of 13.5, hematocrit 40.4 and platelets of 301. Her electrolytes are all within normal limits and she has a BUN of 34 and a creatinine of 1.2. Her nonfasting glucose is 151. Her total bilirubin is 0.7 with an AST of 45, ALT 25 and alkaline phosphatase 133. Her albumin is 4.0. Her total CK is 109 with CK-MB of 2.49 with an index of 2.3%. Her troponin is negative at 0.012. Urinalysis positive for WBCs and bacteria. In the ER the patient received Zofran with improvement in symptoms and was started on lactated Ringer's 125 cc/hour. Dr. Benz was contacted through the ER and agreed to consult with tentative plan for endoscopy tomorrow. The patient is admitted to medicine service for intractable nausea and vomiting related to esophageal narrowing. Discharge Providers Provider Date of admission: 07/05/20 17:07 Discharge Date: 07/07/20 Primary care physician: Pancho Jacobs MD Consults: 07/05/20 18:14 Consult to Dietitian, Adult Routine Comment: Reason For Exam: unintentional weight loss Consult to Pastoral Services Routine Comment: Would like to see ship's engineer 07/05/20 20:11 Consult to Discharge Planning Routine Comment: 07/07/20 10:14 Consult to Speech Therapy Evaluate & Treat Comment: Physician Instructions: Evaluate and treat 07/07/20 10:15 Consult to Dietitian, Adult Routine Comment: Reason For Exam: dysphagia Discharge provider: Michelle Up DO Summary Hospital Course Discharge Diagnosis: 1. Acute persistent nausea, vomiting and impaired swallowing, acute, present on admission. Resolved. 2. Asymptomatic bacteriuria, chronic, present on admission. Stable. 3. Acute hypomagnesium, present on admission. Resolved. 4. Diabetes mellitus type 2, non-insulin, chronic, present on admission. Stable. 5. Asthma, mild persistent, chronic, present admission. Stable. 6. Hypothyroidism, chronic, present on admission. Stable. Hospital Course: Mariana Alves is an 84-year-old female who is extremely hard of hearing and has the past medical history significant for diabetes mellitus type 2, asthma and hiatal hernia who presented to the ED with her sister with persistent nausea and vomiting and feeling of food sticking in her throat. 1. Acute persistent nausea, vomiting and impaired swallowing, acute, present on admission. Resolved. -Patient presented with persistent nausea and vomiting unresponsive to outpatient therapy. -History of prior hiatal hernia status post repair with Colin fundoplication. CT abdomen and pelvis demonstrated small hiatal hernia but no other acute inflammatory processes. -Continued famotidine 20 mg daily once able to take in PO intake. -Consulted general surgery, Dr. Benz, who performed EGD for which a Food bolus in the esophagus presumptively creating a ball-valve effect blocking the esophagus when she was upright and attempting to swallow. Hiatal hernia with small and noncontributory. Consulted speech therapy to evaluate patient's swallow and MBS demonstrated laryngeal penetration and recommended dysphagia mechanical soft diet with nectar thick liquids. The patient no longer has nausea or vomiting, impaired swallow, or epigastric discomfort. 2. Asymptomatic bacteriuria, chronic, present on admission. Stable. -Urinalysis obtained routinely in ED appeared grossly infected and urine culture grew ESBL E. coli. Patient is completely asymptomatic of symptoms including: Dysuria, urinary frequency, hesitancy or urgency, no suprapubic or CVA tenderness; no leukocytosis or procalcitonin and she is afebrile. Bridge Mechanic of asymptomatic bacteriuria. If she developed signs or symptom of UTI/infection would recommend 1 single dose of fosfomycin 3 g. 3. Acute hypomagnesium, present on admission. Resolved. -Initial magnesium level 1.3. Received magnesium 2 g IV x 1 and magnesium chloride 164 mg x1. -Continued to monitor magnesium level daily and replete as necessary. 4. Diabetes mellitus type 2, non-insulin, chronic, present on admission. Stable. -Hemoglobin A1C 7.7% indicative of fair glycemic control. -Held metformin. -Continued blood glucose checks every 6 hours while NPO and then switched to ACHS when able to take in PO intake and low dose correctional insulin low-dose range. -Slowly advanced diet from clears to diet. 5. Asthma, mild persistent, chronic, present admission. Stable. -Patient denies shortness of breath cough or wheezing. -Continued home Advair Diskus and albuterol inhaler 1-2 puffs every 4 hours as needed. 6. Hypothyroidism, chronic, present on admission. Stable. -TSH elevated at 8.31 with normal T4 at 1.57. Recommend continued thyroid function monitoring per PCP. -Continued home levothyroxine 75 mcg daily. Exam Vital Signs (past 8 hours): - 07/07/20 05:04 07/07/20 07:00 07/07/20 07:25 Temperature 97.9 F Pulse Rate 69 57 L Respiratory Rate 18 20 Blood Pressure 134/57 L Pulse Oximetry 94 96 96 07/07/20 08:00 07/07/20 11:00 07/07/20 11:44 Temperature 97.0 F L 97.1 F L Pulse Rate 63 68 Respiratory Rate 18 18 Blood Pressure 139/51 L 131/68 Pulse Oximetry 96 99 99 Oxygen Delivery Method Room Air Oxygen Flow Rate 0 Narrative Exam Narrative: General: Elderly female lying in bed and in no acute distress, well-developed, well-nourished, appropriately interactive HEENT: Normocephalic, atraumatic. External ears without defect. Pupils equal, round, and reactive to light and accommodation. Anicteric sclerae, moist conjunctivae, and no lid lag. Oropharynx free of erythema and cobble stoning with moist mucosa. Significantly hard of hearing. Neck: Supple with full range of motion. No lymphadenopathy or thyromegaly. Cardiovascular: Regular rate and rhythm without murmurs, rubs, or gallops appreciated. Pulmonary: Clear to auscultation bilaterally without crackles, wheezes, or rhonchi. Normal respiratory effort with no use of accessory muscles. Abdomen: Soft, bowel sounds present, nontender, nondistended. No hepatosplenomegaly or masses appreciated. Extremities: No clubbing, cyanosis, or edema. Skin: Normal temperature, turgor, and texture; no rash, ulcers, or subcutaneous nodules appreciated. Neurological: Cranial nerves grossly intact. Psychiatric: Normal mood and affect. Alert and oriented to person, place, and time. Probable mild cognitive impairment with short term memory impairment. Objective Labs Result Diagrams: 07/05/20 12:54 07/07/20 05:50 Labs: Laboratory Results - last 24 hr 07/07/20 05:50 Sodium 136 L Potassium 4.5 Chloride 104 Carbon Dioxide 29 BUN 20 H Creatinine 0.83 Estimated GFR > 60.0 BUN/Creatinine Ratio 24.1 H Glucose 113 H Calcium 9.2 Magnesium 1.5 L Discharge Plan Discharge Plan Patient Disposition: Assisted Living Other facility: [facility] Transportation: Facility vehicle Discharge orders & Medications Discharge Orders: Discharge (Order); Ordered 07/07/20 Ordered By: Michelle Up Prescriptions: Continued acetaminophen 325 mg Tablet 650 mg PO TID RF: 0 cetirizine 10 mg Tablet 5 mg PO DAILY RF: 0 ketotifen fumarate [Allergy Eye (ketotifen)] 0.025 % (0.035 %) Drops 1 drp EYE-BOTH DAILY PRN (Reason: allergies) RF: 0 polyvinyl alcohol [Artificial Tears (polyvin alc)] 1.4 % Drops 1 drp EYE-BOTH DAILY RF: 0 levothyroxine 75 mcg tablet 75 mcg PO DAILY RF: 0 famotidine 20 mg Tablet 20 mg PO DAILY RF: 0 nystatin 100,000 unit/gram Cream 1 applic TOPICAL DAILY PRN (Reason: affected area) RF: 0 fluticasone propion-salmeterol [Advair Diskus] 100-50 mcg/dose blister with device 1 inh INHALATION BID RF: 0 multivitamin with minerals [Daily Multivitamin-Minerals] Tablet 1 tab PO DAILY RF: 0 polyethylene glycol 3350 [Miralax] 17 gram/dose Powder 17 g PO DAILY PRN (Reason: Constipation) RF: 0 albuterol sulfate [Ventolin HFA] 90 mcg/actuation HFA aerosol inhaler 1 inh INHALATION Q4HR PRN (Reason: Shortness Of Breath) RF: 0 ondansetron 4 mg tablet,disintegrating 4 mg translingual Q4HR PRN (Reason: Nausea) RF: 0 fluticasone propionate 50 mcg/actuation spray,suspension 1 spray intranasal BID RF: 0 metformin 500 mg tablet extended release 24 hr 500 mg PO QAM RF: 0 calcium carbonate-vitamin D3 600 mg(1,500mg) -400 unit Tablet,Chewable 1 tab PO BID RF: 0 Follow up/Referrals: Pancho Jacobs MD [Primary Care Provider] - 07/12/20 12:50 pm (appt:07/12 @ 1:00 w/browning nurse practioner for dr jacobs please arrive @ 1250 ) Diet/Activity/Treatments Diet: Diet as Tolerated Liquid consistency: [place] Consistency Food texture: Soft Diet comment: Mechanical soft dysphagia diet with nectar thick liquids Activity: Activity as tolerated with walker and physical and occupational therapy Visit Report/Discharge Packet Visit Report Forms: Patient Portal/API, Stroke Signs & Symptoms Discharge Data Primary Care Provider: Pancho Jacobs Attending Provider: Michelle Up Date/Time: 07/05/20 17:07
[2020-07-07 12:43] LABS: Procalcitonin < 0.05 ng/mL (<0.5)
[2020-07-07] MEDS: INSULIN ASPART 100 UNIT/ML INSULN PEN SUBCUT (12:56)
--- NOTE | 2020-07-07 13:53 | DIET.PN ---
Dietary Progress Note Assessment: 84y F admitted for difficulty swallowing found to have meat bolus stuck in esophagus above region of hiatal hernia repair (Colin) referred to nutrition for same. Pt reports eating liver and onions several days ago, she thought it was cut up enough when swallowing, however in surgeon note, large meat bolus needed to be broken apart and irrigated into stomach. Pt has all meals provided by [facility]. She avoids dairy since childhood but enjoys almond milk, goulash, lasagna, meatloaf. Pt reports not wearing lower dentures as they are ill fitting. SLT noted in MBS top dentures were also ill fitting, loose. Pt reports she has always eaten fast like a man. HT: 149.8cm WT: 50kg BMI: 22.3 Nutrition Diagnosis: difficulty swallowing r/t meat bolus stuck in esophagus aeb pt admitted for N/V, inability to tolerate solids, pt consuming regular texture diet with no lower denture, ill fitting upper denture, pt reports eating fast, EGD showing well healed hiatal hernia repair c large meat bolus partially obstructing esophagus. Interventions: 1. RD and SLT worked together to educate pt on importance of [facility] soft diet upon d/c and not using straw with liquids to reduce risk of aspiration. Educated on slowing down when eating and to visit dentist for help c dentures. Diet Order: Mech Soft/NKT liquids, no straw
--- NOTE | 2020-07-07 14:34 | SLP.IPNOTE ---
ST orders placed on 07/07/2020 at 10:14 to evaluate and treat patient?s current swallow function. Per chart review, patient admitted on 07/05/2020 due to nausea and vomiting related to esophageal narrowing. Patient reported difficulty swallowing, feeling like food was sticking in her throat, and inability to eat or drink for 4 days. EGD completed on 07/06/2020. Per EGD findings report, ?food bolus in the esophagus presumptively creating a ball-valve effect blocking the esophagus when she was upright and attempting to swallow?. NETTING INSPECTOR spoke to Dr. Up and recommended a modified barium swallow study before patient discharge (scheduled for today 07/07/20). Dr. Up provided a verbal order to complete a modified barium swallow study to determine least restrictive diet and risk for aspiration.
--- NOTE | 2020-07-07 15:15 | CM.DPC ---
DCP Cont: Speech Therapy has recommended that patient be on mechanical soft/nectar thin. Maty came over from [facility], nursing care attendant. Stated that they can't accomidate any thickening of liquids. Asked Maty about natural nectar produces, such as tomato juices. Stated, she would look into it. Updated Fariba, speech therapist and nuts and bolts assembler. Recommend nectar thick, if not, water. Patient is to not use a straw as well. Updated Maty as well. Daughter, Edwin, called back and is requesting [facility]. Called Santhosh at [facility] and left him a message about referral. Let him know in message that patient is discharging today, and will need nursing and speech therapy. Faxed over dietary notes, speech therapy notes, face to face, face sheet, orders, over to [facility]. Let [facility] know that sister, dEwin, is POA, but can contact [facility] upon visits. Edwin will be coming over to flower picker patient. Nurse, Jossy, is aware, and will pass on to pm shift. P: Patient is to discharge back to [facility] today with [facility] nursing, and speech therapy. Soco Silva, MOHINDER/[employer] Systems Programmer
--- NOTE | 2020-07-07 18:03 | ST.SWALLOW ---
Visit Care Team Role Provider Type Pancho Kincaid MD Primary Care Provider Non-Staff Specialty: Medical Address: [facility] [address], [place], [address] Email: ROSALES Wahl Emergency Provider Advanced Show Host Or Hostess Referring Provider Specialty: EM Address: [address] [place] [address], [id number] Email: Michelle Up DO Admit Provider Physician Attending Provider Specialty: Internal Medicine Address: [address] [place] [address], [id number] Email: [email or web address] Modified Barium Swallow Study CAREER TECHNICAL COUNSELOR Modified Barium Swallow Study Start: 07/07/20 12:55 Freq: Status: Active Protocol: Document 07/07/20 12:55 LL (Rec: 07/07/20 12:57 LL [id number]) Modified Barium Swallow Study Total Time Visit Start Time 11:35 Visit Stop Time 12:00 Total Visit Minutes 25 Referral Referring Physician Michelle Up DO Reason for Referral difficulty swallowing Setting Setting Acute Care Patient Information Identification Type Name Patient History Per H&P, Mariana Alves is an 84 -year-old female who is extremely hard of hearing and has the past medical history significant for diabetes type 2, asthma and hiatal hernia who presents to the ER with her sister with persistent nausea and vomiting . The patient was seen in the emergency department 5 days ago with nausea vomiting was evaluated in discharge to home to return today with complaints of nausea vomiting, difficulty swallowing complaining of food sticking in her throat. The patient has apparently been able to consume liquids but no solid foods. The patient is a difficult historian though she lives in an assisted living facility and most information is obtained in conjunction with the patient's sister in the ER and is no longer available for interview. The patient has a history of hiatal hernia with a repair but the patient cannot relate further information. She reports no fevers or chills and has had no recent COVID-19 exposure. She denies nasal congestion or sore throat. She has had no chest pain and denies palpitations. She denies complaints of shortness of breath cough, wheezing or dyspnea on exertion with a history of asthma. She describes epigastric discomfort and nausea with eating. She has had no problems with the constipation or diarrhea and tell arriving on the acute care floor where she had an episode incontinent diarrhea. She denies urinary symptoms with no urgency frequency or burning. *ST orders placed on 07/07/2020 at 10:14 to evaluate and treat patient?s current swallow function. Per chart review, patient admitted on due to nausea and vomiting related to esophageal narrowing. Patient reported difficulty swallowing, feeling like food was sticking in her throat, and inability to eat or drink for 4 days. EGD completed on 07/06/2020. Per EGD findings report, ?food bolus in the esophagus presumptively creating a ball- valve effect blocking the esophagus when she was upright and attempting to swallow?. CAREER TECHNICAL COUNSELOR spoke to Dr. Up and recommended a modified barium swallow study before patient discharge (scheduled for today 07/07/20). Dr. Up provided a verbal order to complete a modified barium swallow study to determine least restrictive diet and risk for aspiration. Subjective Observations Patient transported from hospital room to radiology room on time. Patient was able to follow all directions during MBS. Patient Positioning Position View Lat-A/P Imaging Lateral View Textures Administered Trials Presented Thin Liquid via Spoon,Thin Liquid via Cup,Thin Liquid via Straw,[place] Liquid via Spoon ,[place] Liquid via Cup,Honey Liquid via Spoon,Pudding Thick Liquid via Spoon,Mechanical Soft Textures,Regular Textures ,Barium Tablet Oral Phase Source: MBSIMP (TM) (C) Bolus Specific Scoring Grid Lip Closure WFL Tongue Control During Bolus Hold WFL Bolus Prep/Mastication Mild Impairment Bolus Transport/Lingual Motion WFL Oral Residue Mild Impairment Residue Clearing Minimal Impairment Nasal Regurgitation No Additional Oral Phase Observations Oral Peripheral Exam: Normal oral cavity size and symmetrical structures WFL of strength, coordination, and ROM. Patient has full upper dentures and no lower dentures / dentition (endentulous). Patient reported that she has bottom dentures but does not wear them due to poor fitting / discomfort. Upon assessing upper denture fitting, CAREER TECHNICAL COUNSELOR observed loose denture fitting and when asked if patient uses denture adhesive, she replied no because it makes me gag. Oral Phase: Mild oral and tongue base residue present which cleared with subsequent swallows, not abnormal for intake of barium contrast. Increased bolus preparation / mastication time due to poor dentition (e.g., loose upper dentures and no lower dentures / endentulous). Pharyngeal Phase Source: MBSIMP (TM) (C) Bolus Specific Scoring Grid Soft Palate Elevation WFL Tongue Base Strength/Range of Motion Moderate Impairment Residue Along the Tongue Base Yes: mild Clearance of Residue Along Tongue Base Minimal Impairment Laryngeal Elevation WFL Anterior Hyoid Movement WFL Epiglottic Range of Motion WFL Vallecular Residue Yes: mild Clearance of Vallecular Residue Minimal Impairment Laryngeal Vestibular Closure Mild Impairment Pharyngeal Stripping Wave WFL Posterior Pharyngeal Wall Residue No Upper Esophageal Sphincter Opening Mild Impairment Residue in the Pyriform Sinuses Yes: mild Clearance of Residue in the Pyriform Minimal Impairment Sinuses Pharyngoesophageal Backflow Observed No Additional Pharyngeal Phase Observations Pharyngeal Phase: Soft palate elevation, laryngeal elevation , anterior hyoid excursion, epiglottic inversion, and pharyngeal stripping wave observed to be WFL. Mildly incomplete laryngeal vestibular closure and UES opening observed. Mild- moderate tongue base retraction observed. Trace residue observed on pharyngeal structures after the last swallow task. Despite complete laryngeal elevation, anterior hyoid excursion, and epiglottic inversion, there was silent penetration observed during the swallow with both thin (e.g., tsp, cup , straw) and nectar thick liquids (e.g., tsp, cup). Silent penetration observed during the swallow suggests incomplete laryngeal vestibular closure decreasing airway protection. Chin tuck was implemented to increase airway protection. Chin tuck with thin liquid contrast resulted in silent penetration above the level of the vocal folds. However, chin tuck with nectar thick liquid contrast resulted in successful increased airway protection / no penetration. Upon close video review, no aspiration was observed. A/P View Textures Administered Trials Presented Pudding Thick Liquid via Spoon ,Mechanical Soft Textures, Regular Textures,Barium Tablet A/P View Observations Pharyngeal Contraction WFL Additional Observations Pharyngeal contraction observed to be WFL. Unable to assess esophageal clearance in the upright position. Clinical Impressions Dysphagia Type Mild-moderate oropharyngeal dysphagia Findings See above oral and pharyngeal observation summaries *Moderate aspiration / silent aspiration risk Recommend that patient consume mechanical soft diet with nectar thick liquids with several compensatory swallow strategies to increase airway protection and reduce risk for aspiration / aspiration pneumonia. Recommended swallow strategies : chin tuck with NTLs, small bites/sips, no straws, liquids from cup, and upright (90 degrees) for all oral intake. Rehabilitation Potential Fair Patient Appropriate for Therapy Yes: With home health services Recommendations Diet Liquids Order [place] Diet Order Mechanical Soft Medication Recommendation Whole in Carrier,One at a Time Additional Dietary Needs Chopped Food,Single Sips, Controlled Sips,No Straws, Reminders to Use Strategies Aspiration Precautions Recommended Precautions Upright at 90 Degrees,Small Bites/Sips,Chin Tuck,Liquids from Cup Additional Precautions No straws. Treatment Plan Additional Therapy Recommendations Home health speech therapy services Recommended Referrals Dental Evaluation Additional Recommended Referrals To reassess upper and lower denture fitting. Compensatory Strategies Recommendations Sitting Upright (90 deg),Chin Tuck,No Straw,Liquids from Cup ,Small Bites and Sips Placement Recommendation After Discharge Home with Home Health Additional Recommendations/Comments *Recommend dental evaluation to reassess upper and lower denture fitting. *Recommend home health speech therapy services to train/ educate compensatory swallow strategies / aspiration precautions / diet modifications and implement exercises to strengthen swallow musculature.
--- NOTE | 2020-07-07 18:30 | ST.IPTN ---
Visit Care Team Role Provider Type Pancho Kincaid MD Primary Care Provider Non-Staff Address: [facility] [address], [place], [id number] ROSALES Wahl Emergency Provider Advanced Hand Outside Cutter Referring Provider Address: [address] [place] [address], [id number] Michelle Up DO Admit Provider Physician Attending Provider Address: [address] [place] [address], [id number] ANIMAL CARE GIVER Treatment Note ANIMAL CARE GIVER Treatment Note Start: 07/07/20 12:55 Freq: Status: Active Protocol: Document 07/07/20 15:27 LL (Rec: 07/07/20 15:31 LL [id number]) Speech Pathology Treatment Note Session Time Visit Start Time 13:20 Visit Stop Time 14:10 Total Visit Minutes 50 Setting Treatment Setting Acute Care Visit Type Note Type Treatment Note General Information General Information Per H&P, Mariana Alves is an 84 -year-old female who is extremely hard of hearing and has the past medical history significant for diabetes type 2, asthma and hiatal hernia who presents to the ER with her sister with persistent nausea and vomiting . The patient was seen in the emergency department 5 days ago with nausea vomiting was evaluated in discharge to home to return today with complaints of nausea vomiting, difficulty swallowing complaining of food sticking in her throat. The patient has apparently been able to consume liquids but no solid foods. The patient is a difficult historian though she lives in an assisted living facility and most information is obtained in conjunction with the patient's sister in the ER and is no longer available for interview. The patient has a history of hiatal hernia with a repair but the patient cannot relate further information. She reports no fevers or chills and has had no recent COVID-19 exposure. She denies nasal congestion or sore throat. She has had no chest pain and denies palpitations. She denies complaints of shortness of breath cough, wheezing or dyspnea on exertion with a history of asthma. She describes epigastric discomfort and nausea with eating. She has had no problems with the constipation or diarrhea and tell arriving on the acute care floor where she had an episode incontinent diarrhea. She denies urinary symptoms with no urgency frequency or burning. *ST orders placed on 07/07/2020 at 10:14 to evaluate and treat patient?s current swallow function. Per chart review, patient admitted on due to nausea and vomiting related to esophageal narrowing. Patient reported difficulty swallowing, feeling like food was sticking in her throat, and inability to eat or drink for 4 days. EGD completed on 07/06/2020. Per EGD findings report, ?food bolus in the esophagus presumptively creating a ball- valve effect blocking the esophagus when she was upright and attempting to swallow?. ANIMAL CARE GIVER spoke to Dr. Up and recommended a modified barium swallow study before patient discharge (scheduled for today 07/07/20). Dr. Up provided a verbal order to complete a modified barium swallow study to determine least restrictive diet and risk for aspiration. MBS findings: mild-moderate oropharyngeal dysphagia. Penetration observed above the level of the vocal folds with thin liquids and nectar thick liquids. [place] thick liquids with use of chin tuck resulted in successful airway protection / no penetration. Upon close video review, no aspiration was observed. Recommended mechanical soft diet (due to poor dentition) and NTLs. Subjective Identification Type Name,ID Wristband Others Present Other Observations/Patient Presentation Patient was sitting upright in her bed watching television. Patient alert and agreeable to receive ST services. Dietary was also present during half of the treatment session to assist in patient's dietary needs. Chief Complaint(s) Swallowing Patient Knowledge/Awareness of ANIMAL CARE GIVER Role Fair in Treatment Objective Short Term Goals Patient will tolerate mechanical soft diet texture and nectar thick liquids without any overt s/sx of aspiration to obtain adequate nutrition and hydration. Patient will verbalize understanding of MBS results, diet recommendations, and compensatory swallow strategies. Patient planned to d/c today. Treatment Activities Patient seen in room to review MBS results, diet / liquid modifications, aspiration risks, and train/educate compensatory swallow strategies to improve swallow function / increase patient's safety. Patient reviewed MBS in detail and answered all of patient's questions / concerns . ANIMAL CARE GIVER provided patient with several handouts explaining mechanical soft diet, nectar thick liquids, and recommended swallow strategies. ANIMAL CARE GIVER reviewed and demonstrated each swallow strategy to ensure patient understanding. Recommend that patient consume mechanical soft diet with nectar thick liquids with several compensatory swallow strategies to increase airway protection and reduce risk for aspiration / aspiration pneumonia. Recommended swallow strategies : chin tuck with NTLs, small bites/sips, no straws, liquids from cup, and upright (90 degrees) for all oral intake. After the treatment session, ANIMAL CARE GIVER was notified that patient' s current assisted living facility does not provide thickened liquids or assists in thickening liquids. Patient is at a moderate risk for aspiration / aspiration pneumonia if given regular textures and thin liquids with no compensatory swallow strategies. *Highly recommend that patient receives home health speech therapy to train/educate patient on how to properly thicken her liquids (NTL consistency), further review aspiration risks / diet modifications, implement compensatory swallow strategies and complete exercises to strengthen swallow musculature. Assessment Patient Response to Treatment Fair Rehab Potential Fair Impairments Identified Dysphagia Patient/Caregiver Understanding Fair Plan Therapeutic Contents Client Education,Swallowing/ Feeding Provided Patient/Caregiver Instruction Plan of Care,Questions/ Concerns,Other Comment MBS results, aspiration risks, and diet recommendations Therapy Recommendations Other Comment Planned to d/c today. Recommend home health speech therapy Other Referrals Dental evaluation to reassess upper and lower denture fitting
--- NOTE | 2020-07-08 10:36 | CM.DPNOTE ---
Post dc followup: received a call from [email or web address]. She had questions re the nectar thick fluid orders as the facility is unable to accommodate this. Went over the IRONER MACHINE, dietary and DC Planning notes with her and faxed these to her for her followup. fax: [phone]. IRONER MACHINE did recommend water only if nectar thick could not be provided. Arline BANUELOS RN and IRONER MACHINE was planned and with plans to work with pt on the swallow issues. Maty plans for water only for now. She states the mechanical soft textures will not be a problem for the facility to provide.
== END 2020-07-07 16:12 ==
LOC: ED 17:04 → AC 17:08
PROVIDERS: Emergency Medicine; Nurse Practitioner Adult Health; Specialist; Admitting Provider Internal Medicine; Emergency Provider Nurse Practitioner; PCP Family Medicine; Referring Provider Nurse Practitioner; Visit Provider Internal Medicine
PROC: 0DJ08ZZ Inspection of Upper Intestinal Tract, Via Natural or Artificial Opening Endoscopic (ICD-10-PCS; CPT 43235; principal; 2020-07-06 16:00)
DX: T18.128A Food in esophagus causing other injury, initial encounter (principal); R10.9 Unspecified abdominal pain; R13.10 Dysphagia, unspecified; R11.2 Nausea with vomiting, unspecified; E11.9 Type 2 diabetes mellitus without complications; J45.909 Unspecified asthma, uncomplicated; Z79.84 Long term (current) use of oral hypoglycemic drugs; I10 Essential (primary) hypertension; K44.9 Diaphragmatic hernia without obstruction or gangrene; Z11.59 Encounter for screening for other viral diseases; R82.71 Bacteriuria; E83.42 Hypomagnesemia; E03.9 Hypothyroidism, unspecified
CPT/HCPCS: 43247; 36415; 36592; 74177; 74230; 80048; 80053; 81003; 81015; 82550; 82553; 82962; 83036; 83690; 83735; 84145; 84300; 84439; 84443; 84484; 85025; 87077; 87086; 87186; 87635; 92526; 92611; 93005; 93010; 94640; 96361; 96372; 96374; 96375; 96376; 99284; G0378; A9270; C9113; J1885; J2250; J2405; J3010; Q9967

== ENCOUNTER 2021-07-04 17:58 | Emergency (ER) | payer MEDICARE, MEDICAID, SELFPAY ==
[2020-07-05 19:20] VITALS: BMI 21.6
[2021-07-04] VITALS (16 sets, daily range): BP systolic 134–245; BP diastolic 80–109; PULSE 57–108; RESP 14; TEMP 36.2; O2SAT 91–100
[2021-07-04] MEDS: SODIUM CHLORIDE 0.9% 1,000 ML 1000 ML IV (18:23)
[2021-07-04 18:38] LABS: Bilirubin Urine UA NEGATIVE (NEGATIVE); Color Urine UA YELLOW; Glucose Urine UA NEGATIVE (Negative); Ketones Urine UA NEGATIVE (NEGATIVE); Leukocyte Esterase Urine UA 2+ (NEGATIVE); Nitrite Urine UA NEGATIVE (Negative); Occult Blood Urine UA 1+ (Negative); Protein Urine UA NEGATIVE (Negative); Specific Gravity Urine UA <=1.005 (1.000-1.035); Urobilinogen Urine UA 0.2 E.U./dL (0.2)
[2021-07-04 18:40] LABS: Appearance Urine UA Slightly Cloudy; pH Urine UA 5.5 (4.5-8.0)
[2021-07-04 18:48] LABS: Bacteria Urine Many (>30); Culture Indicated Urine Specimen Cultured; RBC Urine 0-1/HPF (0-5/HPF); Squamous Epithelial Cell Urine 0-1 /HPF (0-5/HPF); WBC Urine 10-30/HPF (0-5/HPF)
[2021-07-04 19:48] LABS: Alanine Aminotransferase 43 IU/L (<35); Albumin 4.2 g/dL (3.5-5.0); Albumin Globulin Ratio 1.4 (1.0-2.8); Alkaline Phosphatase 162 U/L (38-126); Aspartate Aminotransferase 66 IU/L (14-36); BUN Creatinine Ratio 19.3 (6-22); Bilirubin Total 0.6 mg/dL (0.2-1.3); Blood Urea Nitrogen 21 mg/dL (7-17); Carbon Dioxide 19 mmol/L (22-32); Chloride 106 mmol/L (98-107); Estimated Glomerular Filt Rate 47.7 mL/min (>60); Globulin 3.1 g/dL (1.7-4.1); Glucose 155 mg/dL (80-110); Lipase 169 U/L (23-300); Sodium 133 mmol/L (137-145); Total Protein 7.3 g/dL (6.3-8.2)
[2021-07-04 19:54] LABS: HEMOLYSIS 79 (0-50); Potassium 5.9 mmol/L (3.4-5.1)
[2021-07-04 21:03] LABS: Add Manual Diff / Slide Review NO; Basophils Absolute Auto 0 /uL (0-100); Basophils Percent Auto 1.1 % (0-2); Eosinophils Absolute Auto 300 /uL (0-450); Eosinophils Percent Auto 6.8 % (2-4); Hematocrit 41.6 % (36-46); Lymphocytes Absolute Auto 1100 /uL (1100-4500); Lymphocytes Percent Auto 26.8 % (25-40); Mean Corpuscular HGB Conc 33.6 % (30-36); Mean Corpuscular Hemoglobin 33.4 PG (26-34); Mean Corpuscular Volume 99.2 fL (80-100); Monocytes Absolute Auto 300 /uL (0-900); Monocytes Percent Auto 8.8 % (3-14); Neutrophils Absolute Auto 2200 /uL (1500-7000); Neutrophils Percent Auto 56.5 % (50-75); Platelet Count 180 X10^3/uL (150-400); Red Blood Cell Count 4.19 X10^6/uL (4.0-5.2); Red Cell Distribution Width 12.5 % (11.6-14.8); White Blood Cell Count 3.9 X10^3/uL (4.5-11.0)
[2021-07-04 21:13] LABS: Lactate (Lactic Acid) 0.9 mmol/L (0.7-2.1)
--- NOTE | 2021-07-04 22:03 | ED.GENADULT ---
HPI - General Adult General Chief complaint: Urogenital-Female Stated complaint: ITCH,BURN,UTI,LOW BLOOD PRESSURE, PAIN Time Seen by Provider: 07/04/21 19:38 Source: patient and family Mode of arrival: Wheelchair Limitations: no limitations History of Present Illness HPI narrative: 85-year-old woman with a history of asthma, hypothyroidism, hypertension presents with a week of urinary tract infection symptoms consisting of increasing frequency, dysuria staff at her assisted living facility felt that she was slightly more confused and reported moderate hypotension today with documented systolic blood pressures in the 85-90 range. Patient reports that she has been burning, itchy and sore for ?awhile?. She also complains of right leg pain that has been chronic for a number of years. She reports no fevers, cough, chills, palpitations, vomiting, diarrhea. Related Data Home Medications Medication Instructions Recorded Confirmed acetaminophen 325 mg tablet 650 mg PO TID 07/05/20 07/05/20 albuterol sulfate 90 mcg/actuation 1 inh INHALATION Q4HR PRN 07/05/20 07/05/20 aerosol inhaler (Ventolin HFA) calcium carbonate-vitamin D3 600 1 tab PO BID 07/05/20 07/05/20 mg(1,500 mg)-400 unit chewable tablet cetirizine 10 mg tablet 5 mg PO DAILY 07/05/20 07/05/20 famotidine 20 mg tablet 20 mg PO DAILY 07/05/20 07/05/20 fluticasone 100 mcg-salmeterol 50 1 inh INHALATION BID 07/05/20 07/05/20 mcg/dose blistr powdr for inhalation (Advair Diskus) fluticasone propionate 50 1 spray INTRANASAL BID 07/05/20 07/05/20 mcg/actuation nasal spray,suspension ketotifen fumarate 0.025 % (0.035 1 drp EYE-BOTH DAILY PRN 07/05/20 07/05/20 %) eye drops (Allergy Eye (ketotifen)) levothyroxine 75 mcg tablet 75 mcg PO DAILY 07/05/20 07/05/20 metformin 500 mg tablet,extended 500 mg PO QAM 07/05/20 07/05/20 release 24 hr multivitamin with minerals (Daily 1 tab PO DAILY 07/05/20 07/05/20 Multivitamin-Minerals) ondansetron 4 mg disintegrating 4 mg TRANSLINGUAL Q4HR PRN 07/05/20 07/05/20 tablet polyethylene glycol 3350 17 17 g PO DAILY PRN 07/05/20 07/05/20 gram/dose oral powder (Miralax) polyvinyl alcohol 1.4 % eye drops 1 drp EYE-BOTH DAILY 07/05/20 07/05/20 (Artificial Tears (polyvinyl alcohol)) Previous Rx's Medication Instructions Recorded nystatin 100,000 unit/gram topical 1 applic TOPICAL DAILY PRN #15 gram 07/07/20 cream losartan 25 mg tablet 25 mg PO BID #60 tab 07/04/21 phenazopyridine 99.5 mg tablet 99.5 mg PO TID PRN #6 tab 07/04/21 (Azo Urinary Pain Relief) sulfamethoxazole 800 1 tab PO BID 10 Days #2 tab 07/04/21 mg-trimethoprim 160 mg tablet (Bactrim DS) Allergies Allergy/AdvReac Type Severity Reaction Status Date / Time aspirin Allergy Mild Rash Verified 07/04/21 23:21 naproxen [From Naprosyn] Allergy Mild Rash Verified 07/04/21 23:21 amoxicillin Allergy Verified 07/04/21 23:21 Cephalosporins Allergy Verified 07/04/21 23:21 clarithromycin [From Biaxin] Allergy Verified 07/04/21 23:21 levofloxacin [From Levaquin] Allergy Verified 07/04/21 23:21 moxifloxacin [From Avelox] Allergy Verified 07/04/21 23:21 Penicillins Allergy Verified 07/04/21 23:21 Review of Systems Review of Systems Narrative: Remainder of complete review of systems is otherwise unremarkable except for that included in the HPI. Patient History Medical History (Updated 07/04/21 @ 23:25 by Ashley Chris MD) Asthma Hiatal hernia Hypertension Type 2 diabetes mellitus Surgical History History of appendectomy History of cholecystectomy History of repair of hiatal hernia Family History (Updated 07/06/20 @ 02:18 by ROSALES Keane) Father Asthma Mother Laryngeal disorder Stomach disorder Social History household members: none Smoking Status: Never smoker alcohol intake: never Smoking Status: Never smoker alcohol intake frequency: holidays/special occasions only Substance Use Type: does not use Exam Narrative Exam Narrative: General: Healthy appearing, in no acute distress. Able to give a complete and coherent history. Well-nourished well-developed HEENT: Moist mucous membranes, normal sclera with reactive pupils, Respiratory: Lungs are clear to auscultation, no wheezing no rales no rhonchi. Full and symmetrical air movement Cardiac: Regular rate and rhythm no murmurs no bruits Abdomen: Soft, nontender, good bowel tones, no flank pain Perineum: Significant vaginal atrophy with thinning vaginal mucosa. Mildly erythematous and irritated appearing inner labia minora. A 1 cm superficial healing shallow ulcer the posterior perineum near the perianal area without infection Skin: Warm and dry, no rashes Neurologic: Grossly neurologically intact with no obvious asymmetries or abnormalities Extremities: No trauma, well perfused Psych: Cooperative, appropriate insight and affect Initial Vital Signs Initial Vital Signs: Vital Signs Temperature 97.1 F L 07/04/21 18:04 Pulse Rate 69 07/04/21 18:04 Respiratory Rate 14 07/04/21 18:04 Blood Pressure 194/81 H 07/04/21 18:04 Pulse Oximetry 99 07/04/21 18:04 Course Orders Ordered: ED Orders 07/04/21 20:02 EKG-12 Lead Stat 07/04/21 20:55 Blood Culture Stat Complete Blood Count AUTO DIFF Stat Lactate (Lactic Acid) Stat Potassium Stat Discontinued Medications Sodium Chloride (Normal Saline 0.9%) 1,000 mls @ 1,000 mls/hr IV BOLUS ONE Stop: 07/04/21 19:06 Last Infusion: 07/04/21 22:16 Dose: 0 mls/hr Documented by: Admin: 07/04/21 18:23 Dose: 1,000 mls/hr Documented by: BASSEM Losartan Potassium (Losartan 25 Mg Tablet) 25 mg PO NOW ONE Stop: 07/04/21 23:39 Last Admin: 07/04/21 23:47 Dose: 25 mg Documented by: CORAZON Phenazopyridine HCl (Phenazopyridine 100 Mg Tablet) 100 mg PO NOW ONE Stop: 07/04/21 23:29 Last Admin: 07/04/21 23:47 Dose: 100 mg Documented by: CORAZON Trimethoprim/Sulfamethoxazole (Trimeth/Sulfa 160/800 (Ds) Tablet) 1 tab PO NOW ONE Stop: 07/04/21 23:39 Last Admin: 07/04/21 23:47 Dose: 1 tab Documented by: CORAZON Vital Signs Vital signs: Vital Signs - 8 hr 07/04/21 21:00 07/04/21 21:30 07/04/21 21:40 Pulse Rate 58 L 67 73 Blood Pressure 138/109 H Pulse Oximetry 99 98 99 07/04/21 22:00 07/04/21 22:11 07/04/21 22:30 Pulse Rate 68 92 H 67 Blood Pressure 134/89 Pulse Oximetry 99 91 99 07/04/21 23:00 07/04/21 23:07 07/04/21 23:13 Pulse Rate 67 96 H 81 Blood Pressure 138/105 H 151/105 H Pulse Oximetry 99 99 97 07/04/21 23:16 07/04/21 23:17 07/04/21 23:19 Pulse Rate 75 67 71 Blood Pressure 245/107 H 206/80 H 228/89 H Pulse Oximetry 100 99 99 07/04/21 23:30 07/04/21 23:35 Pulse Rate 108 H 69 Blood Pressure 236/107 H Pulse Oximetry 96 99 Medical Decision Making Medical Records Medical records narrative: 85-year-old woman with complaints of urinary tract symptoms and documented hypotension at her assisted living facility. I in the emergency room she is actually hypertensive labs are reassuring. She has quite thin vaginal mucosa in some irritation with urine dip that does appear to be infected. Based on urinalysis from a year ago with multidrug resistant E coli will start her on Septra for a urinary tract infection. With the documented hypotension shortly after taking her morning medications and hypertension late this evening I suspect that her blood pressure is brittle and responding to her morning dose of losartan. There is no evidence of sepsis at this time. Will ask her to split the losartan dose and see if this makes a difference with the blood pressure readings. Noted to be slightly hyperkalemic but otherwise asymptomatic and after L of fluid potassium is coming down nicely. Encouraged her to continue to drink plenty of fluids to make sure that her urine is not concentrated to be causing increased irritation to a perineal body. She is safe for home discharge Lab Data Result diagrams: 07/04/21 20:55 07/04/21 20:55 Labs: Lab Results 07/04/21 07/04/21 07/04/21 Range/Units 18:32 19:07 20:55 WBC 3.9 L (4.5-11.0) X10^3/uL RBC 4.19 (4.0-5.2) X10^6/uL Hgb 14.0 (12.0-16.0) g/dL Hct 41.6 (36-46) % MCV 99.2 (80-100) fL MCH 33.4 (26-34) PG MCHC 33.6 (30-36) % RDW 12.5 (11.6-14.8) % Plt Count 180 (150-400) X10^3/uL Neut % (Auto) 56.5 (50-75) % Lymph % (Auto) 26.8 (25-40) % [place] % (Auto) 8.8 (3-14) % Eos % (Auto) 6.8 H (2-4) % Baso % (Auto) 1.1 (0-2) % Neut # (Auto) 2200 (3087-8244) /uL Lymph # (Auto) 1100 (4408-2904) /uL [place] # (Auto) 300 (0-900) /uL Eos # (Auto) 300 (0-450) /uL Baso # (Auto) 0 (0-100) /uL Sodium 133 L (137-145) mmol/L Potassium 5.9 H (3.4-5.1) mmol/L Chloride 106 (98-107) mmol/L Carbon Dioxide 19 L (22-32) mmol/L BUN 21 H (7-17) mg/dL Creatinine 1.09 H (0.52-1.04) mg/dL Estimated GFR 47.7 L (>60) mL/min BUN/Creatinine Ratio 19.3 (6-22) Glucose 155 H (80-110) mg/dL Lactate (0.7-2.1) mmol/L Calcium 10.0 (8.4-10.2) mg/dL Total Bilirubin 0.6 (0.2-1.3) mg/dL AST 66 H (14-36) IU/L ALT 43 H (<35) IU/L Alkaline Phosphatase 162 H (38-126) U/L Total Protein 7.3 (6.3-8.2) g/dL Albumin 4.2 (3.5-5.0) g/dL Globulin 3.1 (1.7-4.1) g/dL Albumin/Globulin Ratio 1.4 (1.0-2.8) Lipase 169 (23-300) U/L Procalcitonin 0.10 (<0.5) ng/mL Urine Color Yellow Urine Appearance Slightly cloudy Urine pH 5.5 (4.5-8.0) Ur Specific [place] <=1.005 (1.000-1.035) Urine Protein Negative (Negative) Urine Glucose (UA) Negative (Negative) g/dL Urine Ketones Negative (NEGATIVE) Urine Occult Blood 1+ H (Negative) Urine Nitrate Negative (Negative) Urine Bilirubin Negative (NEGATIVE) Urine Urobilinogen 0.2 (0.2) E.U./dL Ur Leukocyte Esterase 2+ H (NEGATIVE) Urine RBC 0-1/hpf (0-5/HPF) Urine WBC 10-30/hpf H (0-5/HPF) Ur Squamous Epith Cells 0-1 /hpf (0-5/HPF) Urine Bacteria Many (>30) H (None) Ur Culture Indicated? Specimen cultured 07/04/21 07/04/21 Range/Units 20:55 20:55 WBC (4.5-11.0) X10^3/uL RBC (4.0-5.2) X10^6/uL Hgb (12.0-16.0) g/dL Hct (36-46) % MCV (80-100) fL MCH (26-34) PG MCHC (30-36) % RDW (11.6-14.8) % Plt Count (150-400) X10^3/uL Neut % (Auto) (50-75) % Lymph % (Auto) (25-40) % [place] % (Auto) (3-14) % Eos % (Auto) (2-4) % Baso % (Auto) (0-2) % Neut # (Auto) (9265-4873) /uL Lymph # (Auto) (4470-6372) /uL [place] # (Auto) (0-900) /uL Eos # (Auto) (0-450) /uL Baso # (Auto) (0-100) /uL Sodium (137-145) mmol/L Potassium 5.6 H (3.4-5.1) mmol/L Chloride (98-107) mmol/L Carbon Dioxide (22-32) mmol/L BUN (7-17) mg/dL Creatinine (0.52-1.04) mg/dL Estimated GFR (>60) mL/min BUN/Creatinine Ratio (6-22) Glucose (80-110) mg/dL Lactate 0.9 (0.7-2.1) mmol/L Calcium (8.4-10.2) mg/dL Total Bilirubin (0.2-1.3) mg/dL AST (14-36) IU/L ALT (<35) IU/L Alkaline Phosphatase (38-126) U/L Total Protein (6.3-8.2) g/dL Albumin (3.5-5.0) g/dL Globulin (1.7-4.1) g/dL Albumin/Globulin Ratio (1.0-2.8) Lipase (23-300) U/L Procalcitonin (<0.5) ng/mL Urine Color Urine Appearance Urine pH (4.5-8.0) Ur Specific [place] (1.000-1.035) Urine Protein (Negative) Urine Glucose (UA) (Negative) g/dL Urine Ketones (NEGATIVE) Urine Occult Blood (Negative) Urine Nitrate (Negative) Urine Bilirubin (NEGATIVE) Urine Urobilinogen (0.2) E.U./dL Ur Leukocyte Esterase (NEGATIVE) Urine RBC (0-5/HPF) Urine WBC (0-5/HPF) Ur Squamous Epith Cells (0-5/HPF) Urine Bacteria (None) Ur Culture Indicated? Point of Care Testing Glucose POC 158 Point of care testing: Point of Care Testing Glucose POC 158 [facility] Narrative Medical decision making narrative: Woman from assisted living with noted hypotension that was asymptomatic but complaints of dysuria and increasing frequency over the last number of days. Comes in for further evaluation. Urine does suggest urinary tract infection. Based on culture from a year ago will place her on . Due to her symptoms will give her Pyridium. Labs and clinical exam do not suggest sepsis nor pyelonephritis and blood pressure is actually been on the elevated side while she has been in the emergency department. Will encourage her to increase her water intake and at this time she is safe for home discharge Discharge Plan Departure Patient Disposition: Home Clinical Impression: Urinary tract infection Qualifiers: Urinary tract infection type: acute cystitis Hematuria presence: without hematuria Qualified Code(s): N30.00 - Acute cystitis without hematuria Hypertension Qualifiers: Hypertension type: primary hypertension Qualified Code(s): I10 - Essential (primary) hypertension Instructions: DI for Urinary Tract Infection (UTI) Activity Restrictions/Additional Instructions: Thank you for coming in today You do have a bladder infection and your perineum does look very irritated You need to complete 10 days of Bactrim, twice a day for the bladder infection I have given you a prescription for pyridium to take 3 times a day to help with the burning sensation With the dramatic changes in blood pressure, hypotensive shortly after taking blood pressure medications and hypertensive this evening, I am going to suggest that rather than 50 mg once a day of losartan for blood pressure control that we change it to 25 mg morning and evening and see if that might even out the blood pressure fluctuations. If the losartan 50 mg tablet can be cut in half, please use half in the morning and half in the evening. If it cannot be cut in half I have given you a prescription for the 25 mg size that can be filled. Please follow-up with your primary care physician with these medication changes Prescriptions: New sulfamethoxazole-trimethoprim [Bactrim DS] 800-160 mg tablet 1 tab PO BID 10 Days Qty: 2 RF: 0 losartan 25 mg tablet 25 mg PO BID Qty: 60 RF: 0 Azo Urinary Pain Relief 99.5 mg tablet 99.5 mg PO TID PRN (Reason: pain) Qty: 6 RF: 0 No Action acetaminophen 325 mg Tablet 650 mg PO TID RF: 0 cetirizine 10 mg Tablet 5 mg PO DAILY RF: 0 ketotifen fumarate [Allergy Eye (ketotifen)] 0.025 % (0.035 %) Drops 1 drp EYE-BOTH DAILY PRN (Reason: allergies) RF: 0 polyvinyl alcohol [Artificial Tears (polyvin alc)] 1.4 % Drops 1 drp EYE-BOTH DAILY RF: 0 levothyroxine 75 mcg tablet 75 mcg PO DAILY RF: 0 famotidine 20 mg Tablet 20 mg PO DAILY RF: 0 fluticasone propion-salmeterol [Advair Diskus] 100-50 mcg/dose blister with device 1 inh INHALATION BID RF: 0 multivitamin with minerals [Daily Multivitamin-Minerals] Tablet 1 tab PO DAILY RF: 0 polyethylene glycol 3350 [Miralax] 17 gram/dose Powder 17 g PO DAILY PRN (Reason: Constipation) RF: 0 albuterol sulfate [Ventolin HFA] 90 mcg/actuation HFA aerosol inhaler 1 inh INHALATION Q4HR PRN (Reason: Shortness Of Breath) RF: 0 ondansetron 4 mg tablet,disintegrating 4 mg translingual Q4HR PRN (Reason: Nausea) RF: 0 fluticasone propionate 50 mcg/actuation spray,suspension 1 spray intranasal BID RF: 0 metformin 500 mg tablet extended release 24 hr 500 mg PO QAM RF: 0 calcium carbonate-vitamin D3 600 mg(1,500mg) -400 unit Tablet,Chewable 1 tab PO BID RF: 0 nystatin 100,000 unit/gram Cream 1 applic TOPICAL DAILY PRN (Reason: affected area) Qty: 15 RF: 0 Referrals: Pancho Kincaid MD [Primary Care Provider] -
[2021-07-04 22:13] LABS: HEMOLYSIS 38 (0-50)
[2021-07-04 22:14] LABS: Potassium 5.6 mmol/L (3.4-5.1)
[2021-07-04] MEDS: TRIMETH/SULFA 160/800 (DS) TABLET 1 TAB PO (23:47)
[2021-07-04] MEDS: LOSARTAN 25 MG TABLET PO (23:47)
[2021-07-04] MEDS: PHENAZOPYRIDINE 100 MG TABLET PO (23:47)
--- NOTE | 2021-07-05 12:52 | PC.NURSE ---
corrected prescription w/ pharmacy. Quantity 2 changed to quantity 20.
== END 2021-07-04 23:58 | disposition home or self-care (01) ==
PROVIDERS: Emergency Medicine; Emergency Provider Emergency Medicine; PCP Family Medicine
DX: N30.00 Acute cystitis without hematuria (principal); I10 Essential (primary) hypertension; R41.0 Disorientation, unspecified
CPT/HCPCS: 36415; 80053; 81001; 82962; 83605; 83690; 84132; 84145; 85025; 87040; 87077; 87086; 87186; 93005; 93010; 96360; 96361; 99284

== ENCOUNTER 2021-07-21 11:27 | Inpatient (IN) | payer MEDICARE, MEDICAID, SELFPAY ==
[2020-07-05 19:20] VITALS: BMI 21.6
[2021-07-21] VITALS (19 sets, daily range): BP systolic 122–177; BP diastolic 55–86; PULSE 62–106; RESP 15–28; TEMP 35.7–36.7; O2SAT 91–100; BMI 22.6
--- NOTE | 2021-07-21 12:06 | DI.RAD.S_ITS ---
PROCEDURE: XR CHEST 1V INDICATIONS: chest pain TECHNIQUE: One view of the chest was acquired. COMPARISON: [facility], CR, XR ACUTE ABDOMEN SERIES, 06/30/2020, 11:53. [facility], CR, CHEST 2 VIEW, 03/04/2008, 15:07. [facility], CT, CT ABDOMEN PELVIS W CON, 07/05/2020, 15:02. FINDINGS: Surgical changes and devices: None. Lungs and pleura: Lungs are hyperinflated consistent with COPD. Right middle lobe opacity may be infiltrates/consolidation or scar/atelectasis. No pleural effusions or pneumothorax. Mediastinum: Mediastinal contours appear normal. Heart size is normal. Bones and chest wall: No suspicious bony lesions. Overlying soft tissues appear unremarkable. Surgical clips in the right upper abdomen. IMPRESSION: 1. Right middle lobe opacity may be infiltrate/consolidation or scar/atelectasis. 2. COPD. Dictated by: Jaswant Story M.D. on 07/21/2021 at 12:51 Approved by: Jaswant Story M.D. on 07/21/2021 at 12:55
[2021-07-21 12:14] LABS: Add Manual Diff / Slide Review NO; Basophils Absolute Auto 100 /uL (0-100); Basophils Percent Auto 1.3 % (0-2); Eosinophils Absolute Auto 400 /uL (0-450); Eosinophils Percent Auto 7.6 % (2-4); Hematocrit 41.8 % (36-46); Hemoglobin 13.8 g/dL (12.0-16.0); Lymphocytes Absolute Auto 1700 /uL (1100-4500); Lymphocytes Percent Auto 35.6 % (25-40); Mean Corpuscular HGB Conc 33.1 % (30-36); Mean Corpuscular Hemoglobin 32.7 PG (26-34); Mean Corpuscular Volume 98.9 fL (80-100); Monocytes Absolute Auto 400 /uL (0-900); Monocytes Percent Auto 9.2 % (3-14); Neutrophils Absolute Auto 2200 /uL (1500-7000); Neutrophils Percent Auto 46.3 % (50-75); Platelet Count 208 X10^3/uL (150-400); Red Blood Cell Count 4.23 X10^6/uL (4.0-5.2); Red Cell Distribution Width 12.8 % (11.6-14.8); White Blood Cell Count 4.8 X10^3/uL (4.5-11.0)
[2021-07-21 12:20] LABS: Alanine Aminotransferase 150 IU/L (<35); Albumin 4.3 g/dL (3.5-5.0); Albumin Globulin Ratio 1.3 (1.0-2.8); Alkaline Phosphatase 158 U/L (38-126); Aspartate Aminotransferase 147 IU/L (14-36); BUN Creatinine Ratio 36.6 (6-22); Bilirubin Total 0.6 mg/dL (0.2-1.3); Blood Urea Nitrogen 48 mg/dL (7-17); Calcium 10.7 mg/dL (8.4-10.2); Carbon Dioxide 18 mmol/L (22-32); Chloride 103 mmol/L (98-107); Creatine Kinase 109 U/L (30-135); Estimated Glomerular Filt Rate 38.6 mL/min (>60); Globulin 3.4 g/dL (1.7-4.1); Glucose 115 mg/dL (80-110); Lactate (Lactic Acid) 1.2 mmol/L (0.7-2.1); Lipase 942 U/L (23-300); Sodium 128 mmol/L (137-145); Total Protein 7.7 g/dL (6.3-8.2)
--- NOTE | 2021-07-21 12:27 | ED.ABDPAIN ---
HPI - Abdominal Pain General Chief Complaint: Abdominal Pain Stated Complaint: Hypotensive,provider wants MRCP Time Seen by Provider: 07/21/21 12:05 Source: patient and EMS Mode of arrival: EMS Limitations: no limitations History of Present Illness HPI narrative: The patient is a 85-year-old female who has history of asthma, hypothyroid, hypertension UTI on pelvis 07/04/2021 presenting with 3 weeks of generalized weakness. She resides at assisted care facility she had recent blood work drawn which showed increasing liver enzymes increasing a lipase she perhaps had an outpatient CT of the abdomen at another facility today reports from the halfway were low blood pressure. EMS does not report any low blood pressures and she is not hypotensive here. Patient is extremely hard of hearing. Tongue is she has had progressive weakness minimal abdominal discomfort no fevers chills chest pain or shortness of breath. Related Data Home Medications Medication Instructions Recorded Confirmed acetaminophen 325 mg tablet 650 mg PO TID 07/05/20 07/21/21 albuterol sulfate 90 mcg/actuation 1 inh INHALATION Q4HR PRN 07/05/20 07/21/21 aerosol inhaler (Ventolin HFA) calcium carbonate-vitamin D3 600 1 tab PO BID 07/05/20 07/21/21 mg(1,500 mg)-400 unit chewable tablet cetirizine 10 mg tablet 5 mg PO DAILY 07/05/20 07/21/21 famotidine 20 mg tablet 20 mg PO DAILY 07/05/20 07/21/21 fluticasone 100 mcg-salmeterol 50 1 inh INHALATION BID 07/05/20 07/21/21 mcg/dose blistr powdr for inhalation (Advair Diskus) fluticasone propionate 50 1 spray INTRANASAL BID 07/05/20 07/21/21 mcg/actuation nasal spray,suspension ketotifen fumarate 0.025 % (0.035 1 drp EYE-BOTH DAILY PRN 07/05/20 07/21/21 %) eye drops (Allergy Eye (ketotifen)) levothyroxine 75 mcg tablet 112 mcg PO DAILY 07/05/20 07/21/21 metformin 500 mg tablet,extended 500 mg PO QAM 07/05/20 07/21/21 release 24 hr multivitamin with minerals (Daily 1 tab PO DAILY 07/05/20 07/21/21 Multivitamin-Minerals) ondansetron 4 mg disintegrating 4 mg TRANSLINGUAL Q4HR PRN 07/05/20 07/21/21 tablet polyethylene glycol 3350 17 17 g PO DAILY PRN 07/05/20 07/21/21 gram/dose oral powder (Miralax) polyvinyl alcohol 1.4 % eye drops 1 drp EYE-BOTH DAILY 07/05/20 07/21/21 (Artificial Tears (polyvinyl alcohol)) docusate sodium 100 mg capsule 100 mg PO DAILY 07/21/21 07/21/21 dorzolamide 2 % eye drops 1 drp OPHTHALMIC (EYE) 07/21/21 ketoconazole 2 % topical cream 1 applic TOPICAL BID 07/21/21 07/21/21 lisinopril 2.5 mg tablet 2.5 mg PO DAILY 07/21/21 07/21/21 tizanidine 2 mg tablet 2 mg PO TID PRN 07/21/21 07/21/21 triamcinolone acetonide 0.1 % 1 applic TOPICAL BID PRN 07/21/21 07/21/21 topical ointment Previous Rx's Medication Instructions Recorded nystatin 100,000 unit/gram topical 1 applic TOPICAL DAILY PRN #15 gram 07/07/20 cream losartan 25 mg tablet 25 mg PO BID #60 tab 07/04/21 phenazopyridine 99.5 mg tablet 99.5 mg PO TID PRN #6 tab 07/04/21 (Azo Urinary Pain Relief) Allergies Allergy/AdvReac Type Severity Reaction Status Date / Time aspirin Allergy Mild Rash Verified 07/04/21 23:21 naproxen [From Naprosyn] Allergy Mild Rash Verified 07/04/21 23:21 amoxicillin Allergy Verified 07/04/21 23:21 Cephalosporins Allergy Verified 07/04/21 23:21 clarithromycin [From Biaxin] Allergy Verified 07/04/21 23:21 levofloxacin [From Levaquin] Allergy Verified 07/04/21 23:21 moxifloxacin [From Avelox] Allergy Verified 07/04/21 23:21 Penicillins Allergy Verified 07/04/21 23:21 lactose AdvReac Intermediate Verified 07/21/21 17:34 Review of Systems Review of Systems ROS Unobtainable: All systems reviewed & are unremarkable except as noted in HPI and below Constitutional Constitutional: Reports anorexia, Denies body ache(s), Denies chills, Denies headache(s) and Reports poor appetite ENT Ears, Nose, Mouth, and Throat: Denies headache(s) and Denies sore throat Cardiovascular Cardiovascular: Denies chest pain, Denies lightheadedness and Denies dyspnea Respiratory Respiratory: Denies cough and Denies dyspnea Gastrointestinal Gastrointestinal: Reports as per HPI, Reports nausea and Denies vomiting Genitourinary Genitourinary: Reports as per HPI Musculoskeletal Musculoskeletal: Denies back pain and Denies myalgias Integumentary/Breasts Skin/Breast: Denies rash Neurologic Neurologic: Denies headache(s) Patient History Medical History (Updated 07/21/21 @ 17:44 by Elmira Ring DO) Asthma Hiatal hernia Hypertension Type 2 diabetes mellitus Surgical History History of appendectomy History of cholecystectomy History of repair of hiatal hernia Family History (Updated 07/06/20 @ 02:18 by ROSALES Keane) Father Asthma Mother Laryngeal disorder Stomach disorder Social History household members: none Smoking Status: Never smoker alcohol intake: never Smoking Status: Never smoker alcohol intake frequency: holidays/special occasions only Substance Use Type: does not use Exam Initial Vital Signs Initial Vital Signs: Vital Signs Temperature 98.1 F 07/21/21 11:37 Pulse Rate 67 07/21/21 11:37 Respiratory Rate 18 07/21/21 11:37 Blood Pressure 177/86 H 07/21/21 11:37 Pulse Oximetry 98 07/21/21 11:37 GENERAL: Alert frail 85-year-old female no acute distress HEENT: Head atraumatic,EOMI, pupils reactive, face symmetric, moist mucous membranes CARDIOVASCULAR: Regular rate and rhythm without murmurs, rubs or gallops. RESPIRATORY: Breath sounds equal bilaterally, no wheezes rales or rhonchi. ABDOMEN: Soft, nontender. Normoactive bowel sounds all 4 quadrants. No guarding or rebound. EXTREMITIES: Normal range of motion, no clubbing or edema. Neurovascularly intact NEUROLOGICAL: Alert and oriented x4.Normal gait and speech. SKIN: Warm, dry, no laceration, no petechiae, no rashes or lesions. Course Orders Ordered: ED Orders 07/21/21 11:50 Complete Blood Count AUTO DIFF Stat Comprehensive Metabolic Panel Stat Lactate (Lactic Acid) Stat Lipase Stat Procalcitonin Stat Troponin & CK Cardiac Panel Stat 07/21/21 12:05 EKG-12 Lead Stat 07/21/21 12:06 XR chest 1V Stat 07/21/21 12:28 CT abdomen pelvis w con Stat 07/21/21 12:37 US abdomen limited Stat 07/21/21 14:53 Comprehensive Metabolic Panel Stat Acetaminophen (Acetaminophen 325 Mg Tablet) 650 mg PO Q6HR PRN PRN Reason: Fever/Mild Pain (1-3) Sodium Chloride (Normal Saline 0.9%) 1,000 mls @ 150 mls/hr IV CONT JANELLE Last Admin: 07/21/21 18:24 Dose: 150 mls/hr Documented by: Infusion: 07/21/21 18:24 Dose: 0 mls/hr Documented by: Infusion: 07/21/21 16:45 Dose: 0 mls/hr Documented by: Admin: 07/21/21 12:45 Dose: 150 mls/hr Documented by: ATAYLOR Sodium Chloride (Normal Saline 0.9%) 250 mls @ 21 mls/hr IV Q24H PRN PRN Reason: Flush Ondansetron HCl (Ondansetron 4 Mg/2 Ml Inj) 4 mg IV Q8HR PRN PRN Reason: Nausea And Vomiting Sodium Chloride (Sodium Chloride 0.9% Flush) 10 ml IV PRN PRN PRN Reason: Flush Discontinued Medications Dextrose (Dextrose 50 % In Water 25 Gm/50 Ml Syringe) 25 gm IV NOW ONE Stop: 07/21/21 12:34 Last Admin: 07/21/21 12:46 Dose: 25 gm Documented by: ATAYLOR Dextrose (Dextrose 50 % In Water 25 Gm/50 Ml Syringe) 25 gm IV NOW ONE Stop: 07/21/21 15:41 Last Admin: 07/21/21 15:45 Dose: 25 gm Documented by: ATAYLOR Sodium Chloride (Normal Saline 0.9%) 1,000 mls @ 150 mls/hr IV CONT JANELLE Stop: 07/21/21 18:02 Last Admin: 07/21/21 18:25 Dose: 150 mls/hr Documented by: JTHOMSE Insulin Human Regular (Insulin Regular 100 Unit/Ml 3 Ml Vial) 10 unit IV NOW ONE Stop: 07/21/21 12:34 Last Admin: 07/21/21 12:46 Dose: 10 unit Documented by: EDIS Cosigned by: GREGORIO Sodium Polystyrene Sulfonate (Sodium Polystyrene Sulfon/Sorb 15 Gm/60 Ml Cup) 15 gm PO NOW ONE Stop: 07/21/21 12:34 Last Admin: 07/21/21 12:49 Dose: 15 gm Documented by: EDIS Vital Signs Vital signs: Vital Signs - 8 hr 07/21/21 11:37 07/21/21 12:00 07/21/21 12:30 Temperature 98.1 F Pulse Rate 67 62 62 Respiratory Rate 18 16 15 Blood Pressure 177/86 H 156/71 H 125/58 L Pulse Oximetry 98 99 99 07/21/21 13:00 07/21/21 13:35 07/21/21 14:00 Temperature Pulse Rate 75 79 71 Respiratory Rate 15 22 27 H Blood Pressure 133/82 122/55 L Pulse Oximetry 100 99 99 07/21/21 14:01 07/21/21 14:09 07/21/21 14:30 Temperature Pulse Rate 82 77 Respiratory Rate 19 19 Blood Pressure 170/68 H 145/63 H 149/72 H Pulse Oximetry 99 97 07/21/21 15:00 07/21/21 15:20 07/21/21 15:38 Temperature Pulse Rate 82 83 86 Respiratory Rate 22 21 28 H Blood Pressure 172/76 H 133/61 Pulse Oximetry 94 95 98 07/21/21 16:00 Temperature Pulse Rate 71 Respiratory Rate 23 Blood Pressure Pulse Oximetry 100 MDM - Abdominal Pain Lab Data Result diagrams: 07/21/21 11:50 07/21/21 14:53 Labs: Lab Results 07/21/21 07/21/21 07/21/21 Range/Units 11:50 11:50 11:50 WBC 4.8 (4.5-11.0) X10^3/uL RBC 4.23 (4.0-5.2) X10^6/uL Hgb 13.8 (12.0-16.0) g/dL Hct 41.8 (36-46) % MCV 98.9 (80-100) fL MCH 32.7 (26-34) PG MCHC 33.1 (30-36) % RDW 12.8 (11.6-14.8) % Plt Count 208 (150-400) X10^3/uL Neut % (Auto) 46.3 L (50-75) % Lymph % (Auto) 35.6 (25-40) % Stafford % (Auto) 9.2 (3-14) % Eos % (Auto) 7.6 H (2-4) % Baso % (Auto) 1.3 (0-2) % Neut # (Auto) 2200 (5192-7696) /uL Lymph # (Auto) 1700 (1807-7821) /uL Stafford # (Auto) 400 (0-900) /uL Eos # (Auto) 400 (0-450) /uL Baso # (Auto) 100 (0-100) /uL Sodium 128 L (137-145) mmol/L Potassium 6.9 H* (3.4-5.1) mmol/L Chloride 103 (98-107) mmol/L Carbon Dioxide 18 L (22-32) mmol/L BUN 48 H (7-17) mg/dL Creatinine 1.31 H (0.52-1.04) mg/dL Estimated GFR 38.6 L (>60) mL/min BUN/Creatinine Ratio 36.6 H (6-22) Glucose 115 H (80-110) mg/dL Lactate 1.2 (0.7-2.1) mmol/L Calcium 10.7 H (8.4-10.2) mg/dL Total Bilirubin 0.6 (0.2-1.3) mg/dL AST 147 H (14-36) IU/L ALT 150 H (<35) IU/L Alkaline Phosphatase 158 H (38-126) U/L Total Creatine Kinase 109 (30-135) U/L CK-MB (CK-2) 3.44 H (<2.37) ng/mL CK-MB (CK-2) Rel Index 3.2 (1.5-5.0) % Troponin I < 0.012 (0.01-0.034) ng/mL Total Protein 7.7 (6.3-8.2) g/dL Albumin 4.3 (3.5-5.0) g/dL Globulin 3.4 (1.7-4.1) g/dL Albumin/Globulin Ratio 1.3 (1.0-2.8) Lipase 942 H (23-300) U/L Procalcitonin 0.34 (<0.5) ng/mL 07/21/21 Range/Units 14:53 WBC (4.5-11.0) X10^3/uL RBC (4.0-5.2) X10^6/uL Hgb (12.0-16.0) g/dL Hct (36-46) % MCV (80-100) fL MCH (26-34) PG MCHC (30-36) % RDW (11.6-14.8) % Plt Count (150-400) X10^3/uL Neut % (Auto) (50-75) % Lymph % (Auto) (25-40) % Stafford % (Auto) (3-14) % Eos % (Auto) (2-4) % Baso % (Auto) (0-2) % Neut # (Auto) (1655-6816) /uL Lymph # (Auto) (5290-0685) /uL Stafford # (Auto) (0-900) /uL Eos # (Auto) (0-450) /uL Baso # (Auto) (0-100) /uL Sodium 132 L (137-145) mmol/L Potassium 5.2 H D (3.4-5.1) mmol/L Chloride 106 (98-107) mmol/L Carbon Dioxide 18 L (22-32) mmol/L BUN 43 H (7-17) mg/dL Creatinine 1.17 H (0.52-1.04) mg/dL Estimated GFR 44.0 L (>60) mL/min BUN/Creatinine Ratio 36.8 H (6-22) Glucose 36 L* (80-110) mg/dL Lactate (0.7-2.1) mmol/L Calcium 10.5 H (8.4-10.2) mg/dL Total Bilirubin 0.5 (0.2-1.3) mg/dL AST 125 H (14-36) IU/L ALT 124 H (<35) IU/L Alkaline Phosphatase 128 H (38-126) U/L Total Creatine Kinase (30-135) U/L CK-MB (CK-2) (<2.37) ng/mL CK-MB (CK-2) Rel Index (1.5-5.0) % Troponin I (0.01-0.034) ng/mL Total Protein 7.1 (6.3-8.2) g/dL Albumin 4.0 (3.5-5.0) g/dL Globulin 3.1 (1.7-4.1) g/dL Albumin/Globulin Ratio 1.3 (1.0-2.8) Lipase (23-300) U/L Procalcitonin (<0.5) ng/mL Point of care testing: Point of Care Testing Glucose POC 218 Urine Dip Bedside Urine Glucose Negative Bedside Urine Bilirubin - Negative Bedside Urine Ketone - Negative Urine Specific Union 1.015 Bedside Urine Occult Blood - Negative Bedside Urine pH 6 Bedside Urine Protein - Negative Bedside Urine Urobilinogen +/- 1mg Bedside Urine Nitrite - Negative Bedside Urine Leukocytes - Negative Esterase Imaging Data CT scan - abdomen/pelvis: Radiologist's Impression: PROCEDURE:? CT ABDOMEN PELVIS W CON ? INDICATIONS:? abdominal pain weight loss ? TECHNIQUE:? After the administration of oral and intravenous contrast, axial sections were acquired from the lung bases to the pubic symphysis.? Coronal and sagittal reformats were performed.? For radiation dose reduction, the following was used:? automated exposure control, adjustment of mA and/or kV according to patient size.? ? COMPARISON:[facility], CT, ABDOMEN/PELVIS WITH CONTRAST, 10/21/2013, 10:39.? [facility], CT, CT ABDOMEN PELVIS W CON, 07/05/2020, 15:02. ? FINDINGS:? Image quality:? There are motion artifacts.? ? Lung bases:? Bibasilar scars and atelectasis.? Tiny punctate nodules in left lung base are unchanged. Small hiatal hernia.? Coarse calcified densities in the posterior mediastinum around the GE junction, unchanged. Heart:? No significant findings. ? ? ABDOMEN: Liver:? Unremarkable.? ? Gallbladder:? Surgically absent? ? Biliary ducts:? Unremarkable.? ? Pancreas:? Unremarkable.? ? Spleen:? Unremarkable.? ? Adrenal Glands:? Stable 1.1 cm right adrenal nodule.? ? Kidneys and Ureters:? There is a 3 cm simple cyst in the superior pole of the right kidney.? ? ? Stomach and Bowel:? There is thickening of the gastric cardia.? Small bowel and colon are normal in caliber.? Diverticulosis without diverticulitis. Peritoneum:? No abnormal intraperitoneal fluid.? No free air.? ? Ventral Wall: ? Two small fat containing ventral hernias near midline in upper abdomen.? Abdominal Nodes:? No retroperitoneal or mesenteric adenopathy by size criteria.? Vessels:? Aorta and inferior vena cava are normal in size.? ? PELVIS: Pelvic Organs:? Calcific densities in uterine wall are likely calcified fibroids.? ? Bladder:? Unremarkable.? ? Pelvic Nodes: No enlarged lymph nodes.? Miscellaneous: No inguinal hernias are seen. ? ? ? Bones:? Scoliosis and degenerative changes in lumbar spine.? ? ? IMPRESSION:? ? 1. Limited examination due to motion artifacts. 2. There appears to be postsurgical changes at GE junction.? Mild thickening of the gastric cardia is noted.? If clinically indicated, EGD may be helpful for follow-up evaluation. 3. Diverticulosis without diverticulitis.? 4. 3 cm simple appearing cyst in the superior pole of the right kidney. 5. Stable 1.1 cm right adrenal nodule. 6. Small fat containing ventral hernia.? ? ? Dictated by: Jaswant Story M.D. on 07/21/2021 at 14:02 ? ? US - abdomen: Radiologist's Impression: PROCEDURE: US ABDOMEN LIMITED ? INDICATIONS:? RUQ ? TECHNIQUE:? Real-time focused scanning was performed of the abdomen, with image documentation.? ? COMPARISON:? [facility], CT, ABDOMEN/PELVIS WITH CONTRAST, 10/21/2013, 10:39.? [facility], CT, CT ABDOMEN PELVIS W CON, 07/05/2020, 15:02.? [facility], CT, CT ABDOMEN PELVIS W CON, 07/21/2021, 13:27. ? FINDINGS:? Gallbladder is surgically absent.? Liver is normal in size and echotexture.? No intrahepatic biliary dilation.? Common bile duct measures 5.5 mm.? There is a simple appearing cyst in the superior pole of the right kidney measuring 2.5 x 3.3 x 2.7 cm. ? IMPRESSION:? ? 1. A cause for right upper quadrant pain is not identified. 2. Cholecystectomy. 3. A simple appearing cyst in the superior pole of the right kidney.? ? ? Dictated by: Jaswant Story M.D. on 07/21/2021 at 14:18 ? ? ECG Data Interpretation: Normal sinus rhythm rate 70 CA interval 170 QRS 108 QTC 399 new incomplete right bundle branch block no ST changes MDM Narrative Medical decision making narrative: Patient is 85-year-old female [id number] but appears in no acute distress reports of hypotension at care facility has been normotensive for EMS and in the emergency department. She is found to be hyperkalemic with a potassium of 6.9. She is given insulin dextrose and Kayexalate. Glucose does drop into this 30 she is given more dextrose and food. She remains awake and alert. She is found to have elevated lipase 900 range which is more than it previously 1 elevated liver enzymes. She has prior history of cholecystectomy. There is no common bile duct stones. She has no abdominal pain. Calcium is also slightly elevated along with creatinine probable slight dehydration as well. No acute infection. Dr. Rosen updated patient's symptoms test results and happily accepts patient for observation, however he requests that we recheck the electrolytes before he admits Potassium is rechecked after treatment and is now 5.2 Discharge Plan Departure Patient Disposition: Admitted as Observation Clinical Impression: Acute hyperkalemia, Acute dehydration Admit Date/Time: 07/21/21 16:07 Admit Provider: Jos Jordan
--- NOTE | 2021-07-21 12:28 | DI.CT.S_ITS ---
PROCEDURE: CT ABDOMEN PELVIS W CON INDICATIONS: abdominal pain weight loss TECHNIQUE: After the administration of oral and intravenous contrast, axial sections were acquired from the lung bases to the pubic symphysis. Coronal and sagittal reformats were performed. For radiation dose reduction, the following was used: automated exposure control, adjustment of mA and/or kV according to patient size. COMPARISON:[facility], CT, ABDOMEN/PELVIS WITH CONTRAST, 10/21/2013, 10:39. [facility], CT, CT ABDOMEN PELVIS W CON, 07/05/2020, 15:02. FINDINGS: Image quality: There are motion artifacts. Lung bases: Bibasilar scars and atelectasis. Tiny punctate nodules in left lung base are unchanged. Small hiatal hernia. Coarse calcified densities in the posterior mediastinum around the GE junction, unchanged. Heart: No significant findings. ABDOMEN: Liver: Unremarkable. Gallbladder: Surgically absent Biliary ducts: Unremarkable. Pancreas: Unremarkable. Spleen: Unremarkable. Adrenal Glands: Stable 1.1 cm right adrenal nodule. Kidneys and Ureters: There is a 3 cm simple cyst in the superior pole of the right kidney. Stomach and Bowel: There is thickening of the gastric cardia. Small bowel and colon are normal in caliber. Diverticulosis without diverticulitis. Peritoneum: No abnormal intraperitoneal fluid. No free air. Ventral Wall: Two small fat containing ventral hernias near midline in upper abdomen. Abdominal Nodes: No retroperitoneal or mesenteric adenopathy by size criteria. Vessels: Aorta and inferior vena cava are normal in size. PELVIS: Pelvic Organs: Calcific densities in uterine wall are likely calcified fibroids. Bladder: Unremarkable. Pelvic Nodes: No enlarged lymph nodes. Miscellaneous: No inguinal hernias are seen. Bones: Scoliosis and degenerative changes in lumbar spine. IMPRESSION: 1. Limited examination due to motion artifacts. 2. There appears to be postsurgical changes at GE junction. Mild thickening of the gastric cardia is noted. If clinically indicated, EGD may be helpful for follow-up evaluation. 3. Diverticulosis without diverticulitis. 4. 3 cm simple appearing cyst in the superior pole of the right kidney. 5. Stable 1.1 cm right adrenal nodule. 6. Small fat containing ventral hernia. Dictated by: Jaswant Story M.D. on 07/21/2021 at 14:02 Approved by: Jaswant Story M.D. on 07/21/2021 at 14:17
[2021-07-21 12:29] LABS: HEMOLYSIS 45 (0-50)
[2021-07-21 12:31] LABS: Troponin I < 0.012 ng/mL (0.01-0.034)
[2021-07-21 12:32] LABS: Potassium 6.9 mmol/L (3.4-5.1)
[2021-07-21 12:34] LABS: CKMB % Relative Index 3.2 % (1.5-5.0); Creatine Kinase MB 3.44 ng/mL (<2.37)
[2021-07-21 12:36] LABS: Procalcitonin 0.34 ng/mL (<0.5)
--- NOTE | 2021-07-21 12:37 | DI.US.S_ITS ---
PROCEDURE: US ABDOMEN LIMITED INDICATIONS: RUQ TECHNIQUE: Real-time focused scanning was performed of the abdomen, with image documentation. COMPARISON: [facility], CT, ABDOMEN/PELVIS WITH CONTRAST, 10/21/2013, 10:39. [facility], CT, CT ABDOMEN PELVIS W CON, 07/05/2020, 15:02. [facility], CT, CT ABDOMEN PELVIS W CON, 07/21/2021, 13:27. FINDINGS: Gallbladder is surgically absent. Liver is normal in size and echotexture. No intrahepatic biliary dilation. Common bile duct measures 5.5 mm. There is a simple appearing cyst in the superior pole of the right kidney measuring 2.5 x 3.3 x 2.7 cm. IMPRESSION: 1. A cause for right upper quadrant pain is not identified. 2. Cholecystectomy. 3. A simple appearing cyst in the superior pole of the right kidney. Dictated by: Jaswant Story M.D. on 07/21/2021 at 14:18 Approved by: Jaswant Story M.D. on 07/21/2021 at 14:20
[2021-07-21] MEDS: SODIUM CHLORIDE 0.9% 1,000 ML 150 ML IV ×3 (12:45→18:25)
[2021-07-21] MEDS: DEXTROSE 50 % IN WATER 25 GM/50 ML SYRINGE IV ×2 (12:46→15:45)
[2021-07-21] MEDS: INSULIN REGULAR 100 UNIT/ML 3 ML VIAL 10 UNIT IV (12:46)
[2021-07-21] MEDS: SODIUM POLYSTYRENE SULFON/SORB 15 GM/60 ML CUP PO (12:49)
[2021-07-21 15:28] LABS: Alanine Aminotransferase 124 IU/L (<35); Albumin Globulin Ratio 1.3 (1.0-2.8); Alkaline Phosphatase 128 U/L (38-126); Aspartate Aminotransferase 125 IU/L (14-36); BUN Creatinine Ratio 36.8 (6-22); Bilirubin Total 0.5 mg/dL (0.2-1.3); Blood Urea Nitrogen 43 mg/dL (7-17); Calcium 10.5 mg/dL (8.4-10.2); Carbon Dioxide 18 mmol/L (22-32); Chloride 106 mmol/L (98-107); Globulin 3.1 g/dL (1.7-4.1); HEMOLYSIS < 15 (0-50); Potassium 5.2 mmol/L (3.4-5.1); Sodium 132 mmol/L (137-145); Total Protein 7.1 g/dL (6.3-8.2)
[2021-07-21 15:53] LABS: Glucose 36 mg/dL (80-110)
--- NOTE | 2021-07-21 17:24 | PC.NURSE ---
Addendum entered by Marsha Duffy R.N. 07/21/21 17:28: DNR copy placed in pt's chart along with medication list and pt summary from facility. Original Note: Admission notes. pt AO and receptive to care. Approximately 3 weeks ago pt started having abd pain, nausea (without vomiting), diahrea (~5 BMs a day) and headaches. Skin intact other than an abrasion to left neck. [place], wears a hearing aid to left ear, glasses in purse. Mask on until nasal swabs come back. SBA to BSC. PIV to left AC, CBG 173, pt oriented to room, awaiting further orders.
[2021-07-21 18:28] LABS: COVID19 - ADMIT (NP swab/PCR) Negative (Negative)
[2021-07-21 20:21] LABS: Hemoglobin A1C% w Est Avg Glu 6.7 % (4.0-6.0)
[2021-07-21] MEDS: SODIUM CHLORIDE 0.9% 1,000 ML 125 ML IV (20:35)
[2021-07-21 21:10] LABS: BUN Creatinine Ratio 36.9 (6-22); Blood Urea Nitrogen 41 mg/dL (7-17); Calcium 10.2 mg/dL (8.4-10.2); Carbon Dioxide 20 mmol/L (22-32); Chloride 105 mmol/L (98-107); Estimated Glomerular Filt Rate 46.7 mL/min (>60); Glucose 135 mg/dL (80-110); HEMOLYSIS 18 (0-50); Potassium 5.6 mmol/L (3.4-5.1); Sodium 132 mmol/L (137-145)
--- NOTE | 2021-07-21 22:32 | P.HP_ITS ---
History of Present Illness History of Present Illness Date Patient Seen: 07/21/21 Time Patient Seen: 21:15 Chief complaint: Hypotensive,provider wants [facility] Narrative: Mariana Alves is an 85 y.o. with diabetes type 2, hypothyroidism, asthma and history of diverticulitis, a chronic aphasia condition who is a resident of a local assisted living facility with a several week history of abdominal pain and nausea. She states she has not been able to get better and was brought here by the ambulance. She states she has been staying in her room in isolating herself for 3 weeks. She denies any diarrhea cough vomiting but she does endorse being dizzy and weak was unable to walk, denies any falls. She does use a walker in her room and at the facility. She has a history of lower esophageal reflux and and has had endoscopies to remove food fragments. She is extremely hard of hearing but very pleasant. Upon presentation to the emergency department she was hyperkalemic with a potassium of 6.9. She was given Kayexalate and 10 units of insulin and repeat potassium came down to 5.2. Done with contrast was negative for any source of pain, noncontrast CT indicated postsurgical changes at the GE junction and diverticulitis, chest x-ray indicated COPD with right middle lobe opacity though the patient has no pulmonary symptoms. She is afebrile, blood pressure 142/63, heart rate 69, respiratory rate 18, oxygen saturation is 92% on room air, she weighs 50.9 kg with a BMI of 22.6. Sodium is 132, potassium 5.6, bicarb 20, BUN 41, creatinine 1.11 with a GFR 46.7, glucose 135, A1c is 6.7, alk-phos is 128, lipase is 942, procalcitonin is negative and COVID-19 PCR is negative. Patient History Medical History Asthma Hearing impaired Hiatal hernia Hypertension Type 2 diabetes mellitus Surgical History History of appendectomy History of cholecystectomy History of repair of hiatal hernia Family & Social History Family History Father Asthma Mother Laryngeal disorder Stomach disorder Social History: household members none Prior Living Arrangements Assisted Living Safety & Behavioral: Feels Safe in Current Yes Environment Suicidal Ideation Description None Suicide Plan Description No Plan Tobacco & Substance use: Smoking Status Never smoker alcohol intake never alcohol intake frequency holiday/special occasion Substance Use Type does not use Meds Home Medications and Allergies Home Medications Medication Instructions Recorded Confirmed Type acetaminophen 325 mg tablet 650 mg PO TID 07/05/20 07/21/21 History albuterol sulfate 90 mcg/actuation 1 inh INHALATION Q4HR PRN 07/05/20 07/21/21 History aerosol inhaler (Ventolin HFA) calcium carbonate-vitamin D3 600 1 tab PO BID 07/05/20 07/21/21 History mg(1,500 mg)-400 unit chewable tablet cetirizine 10 mg tablet 5 mg PO DAILY 07/05/20 07/21/21 History famotidine 20 mg tablet 20 mg PO DAILY 07/05/20 07/21/21 History fluticasone 100 mcg-salmeterol 50 1 inh INHALATION BID 07/05/20 07/21/21 History mcg/dose blistr powdr for inhalation (Advair Diskus) fluticasone propionate 50 1 spray INTRANASAL BID 07/05/20 07/21/21 History mcg/actuation nasal spray,suspension ketotifen fumarate 0.025 % (0.035 1 drp EYE-BOTH DAILY PRN 07/05/20 07/21/21 History %) eye drops (Allergy Eye (ketotifen)) levothyroxine 75 mcg tablet 112 mcg PO DAILY 07/05/20 07/21/21 History metformin 500 mg tablet,extended 500 mg PO QAM 07/05/20 07/21/21 History release 24 hr multivitamin with minerals (Daily 1 tab PO DAILY 07/05/20 07/21/21 History Multivitamin-Minerals) ondansetron 4 mg disintegrating 4 mg TRANSLINGUAL Q4HR PRN 07/05/20 07/21/21 History tablet polyethylene glycol 3350 17 17 g PO DAILY PRN 07/05/20 07/21/21 History gram/dose oral powder (Miralax) polyvinyl alcohol 1.4 % eye drops 1 drp EYE-BOTH DAILY 07/05/20 07/21/21 History (Artificial Tears (polyvinyl alcohol)) nystatin 100,000 unit/gram topical 1 applic TOPICAL DAILY PRN #15 gram 07/07/20 07/21/21 Rx cream docusate sodium 100 mg capsule 100 mg PO DAILY 07/21/21 07/21/21 History ketoconazole 2 % topical cream 1 applic TOPICAL BID 07/21/21 07/21/21 History lisinopril 2.5 mg tablet 2.5 mg PO DAILY 07/21/21 07/21/21 History tizanidine 2 mg tablet 2 mg PO TID PRN 07/21/21 07/21/21 History triamcinolone acetonide 0.1 % 1 applic TOPICAL BID PRN 07/21/21 07/21/21 History topical ointment Allergies Allergy/AdvReac Type Severity Reaction Status Date / Time aspirin Allergy Mild Rash Verified 07/04/21 23:21 naproxen [From Naprosyn] Allergy Mild Rash Verified 07/04/21 23:21 amoxicillin Allergy Verified 07/04/21 23:21 Cephalosporins Allergy Verified 07/04/21 23:21 clarithromycin [From Biaxin] Allergy Verified 07/04/21 23:21 levofloxacin [From Levaquin] Allergy Verified 07/04/21 23:21 moxifloxacin [From Avelox] Allergy Verified 07/04/21 23:21 Penicillins Allergy Verified 07/04/21 23:21 lactose AdvReac Intermediate Verified 07/21/21 17:34 Review of Systems Review of Systems ROS: Yes All systems reviewed with the patient and are negative except as otherwise documented Exam Vital Signs (past 8 hours): - 07/21/21 15:00 07/21/21 15:20 07/21/21 15:38 Temperature Pulse Rate 82 83 86 Respiratory Rate 22 21 28 H Blood Pressure 172/76 H 133/61 Pulse Oximetry 94 95 98 07/21/21 16:00 07/21/21 16:30 07/21/21 16:50 Temperature 97.0 F L Pulse Rate 71 106 H 88 Respiratory Rate 23 20 18 Blood Pressure 132/66 Pulse Oximetry 100 91 93 07/21/21 19:16 07/21/21 19:32 Temperature 96.3 F L Pulse Rate 69 Respiratory Rate 18 Blood Pressure 142/63 H Pulse Oximetry 93 92 Oxygen Delivery Method Room Air Narrative Exam Narrative: Gen: Alert, oriented, cachectic appearing 85y.o. female, very pleasant HEENT: normocephalic, atraumatic, conjunctiva clear, sclera non-icteric, oral mucosa pink and moist Neck: supple, full ROM, no JVD, trachea is midline Resp: Lungs CTA, non-labored breathing CV: RRR, no murmur or rubs Abd: soft, non-tender, normoactive BTs Skin: no lesions or rashes, dry and intact Neuro: Very hard of hearing uses a hearing aid in the left ear. Alert and oriented X 4 w/no focal deficits. Speech clear and coherent. Extremities: moves all 4 extremities, is ambulatory, negative Silas?s sign Psyche: normal mood and affect. Objective Labs Result Diagrams: 07/21/21 11:50 07/21/21 20:47 Labs: Laboratory Results - last 24 hr 07/21/21 07/21/21 07/21/21 11:50 11:50 11:50 WBC 4.8 RBC 4.23 Hgb 13.8 Hct 41.8 MCV 98.9 MCH 32.7 MCHC 33.1 RDW 12.8 Plt Count 208 Neut % (Auto) 46.3 L Lymph % (Auto) 35.6 [place] % (Auto) 9.2 Eos % (Auto) 7.6 H Baso % (Auto) 1.3 Neut # (Auto) 2200 Lymph # (Auto) 1700 [place] # (Auto) 400 Eos # (Auto) 400 Baso # (Auto) 100 Sodium 128 L Potassium 6.9 H* Chloride 103 Carbon Dioxide 18 L BUN 48 H Creatinine 1.31 H Estimated GFR 38.6 L BUN/Creatinine Ratio 36.6 H Glucose 115 H Hemoglobin A1c Lactate 1.2 Calcium 10.7 H Total Bilirubin 0.6 AST 147 H ALT 150 H Alkaline Phosphatase 158 H Total Creatine Kinase 109 CK-MB (CK-2) 3.44 H CK-MB (CK-2) Rel Index 3.2 Troponin I < 0.012 Total Protein 7.7 Albumin 4.3 Globulin 3.4 Albumin/Globulin Ratio 1.3 Lipase 942 H Procalcitonin 0.34 SARS-CoV-2 (PCR) 07/21/21 07/21/21 07/21/21 11:50 14:53 17:31 WBC RBC Hgb Hct MCV MCH MCHC RDW Plt Count Neut % (Auto) Lymph % (Auto) [place] % (Auto) Eos % (Auto) Baso % (Auto) Neut # (Auto) Lymph # (Auto) [place] # (Auto) Eos # (Auto) Baso # (Auto) Sodium 132 L Potassium 5.2 H D Chloride 106 Carbon Dioxide 18 L BUN 43 H Creatinine 1.17 H Estimated GFR 44.0 L BUN/Creatinine Ratio 36.8 H Glucose 36 L* Hemoglobin A1c 6.7 H Lactate Calcium 10.5 H Total Bilirubin 0.5 AST 125 H ALT 124 H Alkaline Phosphatase 128 H Total Creatine Kinase CK-MB (CK-2) CK-MB (CK-2) Rel Index Troponin I Total Protein 7.1 Albumin 4.0 Globulin 3.1 Albumin/Globulin Ratio 1.3 Lipase Procalcitonin SARS-CoV-2 (PCR) Negative 07/21/21 20:47 WBC RBC Hgb Hct MCV MCH MCHC RDW Plt Count Neut % (Auto) Lymph % (Auto) [place] % (Auto) Eos % (Auto) Baso % (Auto) Neut # (Auto) Lymph # (Auto) [place] # (Auto) Eos # (Auto) Baso # (Auto) Sodium 132 L Potassium 5.6 H Chloride 105 Carbon Dioxide 20 L BUN 41 H Creatinine 1.11 H Estimated GFR 46.7 L BUN/Creatinine Ratio 36.9 H Glucose 135 H Hemoglobin A1c Lactate Calcium 10.2 Total Bilirubin AST ALT Alkaline Phosphatase Total Creatine Kinase CK-MB (CK-2) CK-MB (CK-2) Rel Index Troponin I Total Protein Albumin Globulin Albumin/Globulin Ratio Lipase Procalcitonin SARS-CoV-2 (PCR) Assessment & Plan Assessment & Plan narrative: Mariana Alves will be observed overnight for gentle hydration in hopes to resolve her nausea, dehydration and to correct her hyperkalemia. 1. Nausea likely secondary to dehydration with poor nutritional input, acute on chronic and present on admission * General fluid hydration with IV normal saline at 125 mL/hour * Renal diabetic diet, mechanical soft * Correct electrolyte imbalances 2. Hyperkalemia, acute, present on admission * Initial potassium was 6.9 and after receiving IV insulin and Kayexalate her potassium came down to 5.2 slightly over normal * Recheck in the morning 3. Diabetes type 2 good control with a hemoglobin A1c of 6.7 * When given IV insulin to correct her potassium her blood sugars did drop to the 30s but was responsive to food and drink * She has been put on a renal carb controlled diet, prefers no dairy products or cottage cheese 4. Hypothyroidism, chronic * Continue home dose of levothyroxine 75 mg 5. Essential hypertension, chronic * Normally takes lisinopril 2.5 mg p.o. in the morning, depending on her creatinine, will either hold or substitute another blood pressure medication VTE Prophylaxis: Wells risk score 1.5 X Bilateral SCDs [X]Patient is placed into observation as her stay is not expected to exceed 2 midnights. FEN: IV fluids: NS at 125 ml/hour, diet: renal carb controlled diet, labs: CBC, C/BMP, liver enzymes, [employer] None Dispo: Probable discharge back to her facility Code status: Full code as discussed with the patient who identifies sister Edwin as her surrogate and POA. [X] I confirmed that the patient's advanced care plan is present, code status is determined, or surrogate decision maker is listed on the patient's medical record. [X] I have utilized all available immediate resources to obtain, update, or review of the patient's current medications COVID-19 COVID-19 status: Negative Result date/Date tested (Pos, Neg/Pending): 07/21/21 Time Spent With Patient Critical Care time: I spent a total of [] minutes of critical care time on this patient's care today; this time is exclusive of procedural time. Scores Wells' Criteria for PE Clinical signs and symptoms of DVT: No PE is #1 Dx or equally likely: No Heart rate > 100: No Immobilization at least 3 days or surg in previous 4 weeks: Yes History of PE or DVT: No Hemoptysis: No Malignancy w/Treatment within 6 months or palliative: No Wells' PE Score total: 1.5 Quality VTE Deep Vein Thrombosis/Pulmonary Embolism Present on Admission: No MIPS - Admit I confirm the patient?s Advance Care Plan is present, Code status is documented, Surrogate decision maker is in patient?s record [If Yes, STOP here]: Yes MIPS - DC The patient has current or prior documentation of left ventricular ejection fraction (LVEF) less than 40%, or moderate or severely depressed left luis tricular systolic function.: No
[2021-07-22] VITALS (11 sets, daily range): BP systolic 102–130; BP diastolic 44–56; PULSE 54–65; RESP 15–18; TEMP 36.1–37.1; O2SAT 95–100
[2021-07-22] MEDS: ACETAMINOPHEN 325 MG TABLET 650 MG PO (03:56)
[2021-07-22] MEDS: SODIUM CHLORIDE 0.9% 1,000 ML 125 ML IV (03:58)
[2021-07-22] MEDS: LEVOTHYROXINE 112 MCG TABLET PO (05:19)
[2021-07-22 05:44] LABS: Add Manual Diff / Slide Review NO; Basophils Absolute Auto 0 /uL (0-100); Eosinophils Absolute Auto 300 /uL (0-450); Hematocrit 35.3 % (36-46); Hemoglobin 11.7 g/dL (12.0-16.0); Lymphocytes Absolute Auto 1200 /uL (1100-4500); Lymphocytes Percent Auto 31.6 % (25-40); Mean Corpuscular HGB Conc 33.2 % (30-36); Mean Corpuscular Hemoglobin 32.7 PG (26-34); Mean Corpuscular Volume 98.5 fL (80-100); Monocytes Absolute Auto 400 /uL (0-900); Monocytes Percent Auto 11.2 % (3-14); Neutrophils Absolute Auto 1800 /uL (1500-7000); Neutrophils Percent Auto 48.2 % (50-75); Platelet Count 173 X10^3/uL (150-400); Red Blood Cell Count 3.58 X10^6/uL (4.0-5.2); Red Cell Distribution Width 12.8 % (11.6-14.8); White Blood Cell Count 3.7 X10^3/uL (4.5-11.0)
[2021-07-22 05:54] LABS: BUN Creatinine Ratio 36.3 (6-22); Blood Urea Nitrogen 33 mg/dL (7-17); Calcium 9.1 mg/dL (8.4-10.2); Carbon Dioxide 21 mmol/L (22-32); Chloride 109 mmol/L (98-107); Estimated Glomerular Filt Rate 58.8 mL/min (>60); Glucose 104 mg/dL (80-110); HEMOLYSIS 28 (0-50); Magnesium 1.5 mg/dL (1.6-2.3); Phosphorous 3.4 mg/dL (2.8-4.1); Potassium 5.1 mmol/L (3.4-5.1); Sodium 133 mmol/L (137-145)
[2021-07-22] MEDS: FAMOTIDINE 20 MG TABLET PO (08:31)
--- NOTE | 2021-07-22 09:50 | OT.IP.EVAL ---
Past Medical History (Last Reviewed 07/21/21 @ 22:52 by ROSALES Brown) Asthma Hearing impaired Hiatal hernia History of appendectomy History of cholecystectomy History of repair of hiatal hernia Hypertension Type 2 diabetes mellitus Surgical History (Last Reviewed 07/21/21 @ 22:52 by ROSALES Brown) History of appendectomy History of cholecystectomy History of repair of hiatal hernia Occupational Therapy Inpatient Evaluation/Re-Eval M1 PT/OT-IP Prior Functional Status Start: 07/22/21 10:12 Freq: NEEDED Status: Active Protocol: Document 07/22/21 10:13 CGR (Rec: 07/22/21 10:31 R [id number]) Medical Review Prior Functional Status Medical History Reviewed Yes Communication Pt is an effective verbal communicator but is very [place]. Pt wears a hearing aid in her L ear but still has difficulty hearing when speaker loudly speaks directly into that ear. Pt is also inconsistent in her ability to read. Mobility and Gait Pt was MOD I with a 4WW at baseline. States that her last fall was 8-9 years ago. Pt typically ambulates to the dining room at her assisted living for all meals. Activities of Daily Living and IADL's Pt was IND in dressing, grooming, oral hygiene and toileting. Pt has SBA to MIN A for bathing and her IADLs are performed by assisted living staff. Social History Household Members none Living Arrangements Assisted Living Number of Floors (Floors) One Floor Number of Stairs To Enter/Railing? No stairs to enter her ground level apartment Home Environment High Toilet,Walk in Shower, Built-In Shower Seat Home Equipment Four Wheel Walker,Grab Bars Near Toilet,Grab Bars In Shower Employment Status Retired Additional Social History Comment Pt has a flat bed without rails. M2 OT-IP Current Condition Start: 07/22/21 10:12 Freq: Status: Active Protocol: Document 07/22/21 10:13 CGR (Rec: 07/22/21 10:31 R [id number]) Occupational Therapy Current Condition Current Condition Evaluation Date 07/22/21 Treatment Diagnosis Hypotension, abdominal pain and nausea Diagnosis Onset Date 07/21/21 M3 OT- IP Subjective and Pain Start: 07/22/21 10:12 Freq: Status: Active Protocol: Document 07/22/21 10:13 CGR (Rec: 07/22/21 10:31 CGR [id number]) OT- Subjective Occupational Therapy Visit Type Type Initial Evaluation Visit Start Time 08:55 Visit Stop Time 09:50 Total Visit Minutes 55 OT Pain Assessment Pain When Pain Assessed At Rest Pain Present Pain Present Pain Reported Location Abdomen Scale Used did not rate Management Techniques Distraction,Modification of Treatment,Re-positioning M4 OT- IP ADL's Start: 07/22/21 10:12 Freq: Status: Active Protocol: Document 07/22/21 10:13 CGR (Rec: 07/22/21 10:31 CGR [id number]) OT [id number] General Evaluation Self-Feeding Ability Independent Comments OT Self-Feeding Comments breakfast OT ADL-Grooming General Evaluation Grooming Ability Standby Assistance Areas Needing Assistance Face Washing Comments OT Grooming Comments with set up sitting in chair d /t BP OT ADL-Oral Care General Eval Oral Care Ability Standby Assistance Areas of Assistance Brushing Teeth Comments Oral Care Comments seated in chair d/t BP OT ADL-Dressing Comments OT Dressing Comments Not performed OT ADL-Toileting General Evaluation Toileting Ability Standby Assistance Devices Toileting Assistive Devices Commode Comments OT Toileting Comments Pt had BM seated on BSC and was able to manage clothing and peircare without physical assist. OT ADL-Bathing Comments OT Bathing Comments not performed M5 OT- IP IADL's Start: 07/22/21 10:12 Freq: Status: Active Protocol: Document 07/22/21 10:13 CGR (Rec: 07/22/21 10:31 R [id number]) OT-Instrumental Activities of Daily Living Deficits IADL Deficits Identified Deficits Home Safety Awareness Awareness of Need for Assistance at Home Good Awareness Ability to Problem Solve Emergency Able to Problem Solve Situations Medication Management Medication Management Caregiver Administers Money Management Money Management Caregiver Provides Assistance Meal Preparation Meal Preparation Caregiver Provides Assist Ldr Nurse Ldr Nurse Caregiver Provides Assist Driving Driving Comments Pt does not drive M6 OT- IP Functional Cognition Start: 07/22/21 10:12 Freq: Status: Active Protocol: Document 07/22/21 10:13 CGR (Rec: 07/22/21 10:31 CGR [id number]) Cognitive Factors Limiting Selfcare Function Cognitive Ability Level of Alertness Alert Patient Orientation Name,Age,Birthday,Month,Date, Year,Day of Week,Place, Situation Attention Span Ability Capable of Focused Attention, Capable of Sustained Attention Ability to Follow Commands Able to Follow One Step Commands with Increased Time, Able to Follow One Step Commands with Repetition Cognitive Comments Cognitive Assessment Comments Cognition is difficult to fully assess in this session d /t pt being [place]. OT- Vision and Hearing OT- Hearing Assessment OT- Hearing Assessment Hearing Impaired,Use of Hearing Aids OT- Vision Assessment Visual Attentiveness WFL Occular Pursuits WFL Vision Assessment Comments Pt appears to have some visual deficit in her L eye but this health underwriter was unable to obtain information d/t pt being severly [place]. Pt had difficulty reading questions when that was attempted to assist with communication. M7 OT- IP Mobility and Balance Start: 07/22/21 10:12 Freq: Status: Active Protocol: Document 07/22/21 10:13 CGR (Rec: 07/22/21 10:31 CGR [id number]) OT- Bed Mobility Assessment Supine to Sit Supine to Sit Assist Standby Assistance Scooting Scooting to Edge of Bed Standby Assistance OT-Transfer Assessment Sit to and From Stand Sit to and from Stand Contact Guard Assistance Transfers Transfer Ability Contact Guard Assistance Technique Transfer Destination Bed,Bedside Commode,Chair Transfer Technique Stand Step Pivot Devices Transfer Assistive Devices Gait Belt,Front Wheeled Walker Comments Mobility Comments CGA for all mobility d/t BP OT- Gait Assessment Comments Gait Ability Comments Not performed d/t BP OT- Balance Assessment Sitting Balance and Reactions Static Sitting Balance Ability Good Dynamic Sitting Balance Ability Good M8 OT- IP Objective Assessments Start: 07/22/21 10:12 Freq: Status: Active Protocol: Document 07/22/21 10:13 CGR (Rec: 07/22/21 10:31 CGR [id number]) OT Gross Range of Motion Upper Extremity Range of Motion Assessment Within Functional Limits OT Strength Upper Extremity Strength Assessment Within Functional Limits Comments Strength Comments 4-/5 throughout OT- Coordination Assessment Upper Extremity Finger to Nose Test Within Functional Limits Finger Tapping Test Within Functional Limits OT-Muscle Tone Assessment Muscle Tone WNL Yes OT Sensation Assessment Edema Edema Absent M9 OT- IP Assessment and Plan Start: 07/22/21 10:12 Freq: Status: Active Protocol: Document 07/22/21 10:13 CGR (Rec: 07/22/21 10:31 CGR [id number]) OT Summary Assessment and Plan Potential Rehabilitation Potential Excellent Analytic Complexity at Evaluation Low Summary OT Impairments Pain,Functional Mobility, Toileting,Bathing,Toilet Transfers,Shower Transfers, Activity Tolerance Progress Towards Goals Progressing Toward Goals Assessment Summary Pt presents as a low complexity evaluation s/p admit for hypotension and abdominal pain. Pt is moving with CGA but her BP is limiting her ability for increased activity. Pt 124/40 supine at start of session, 94 /49 upon sitting ~2 minutes, 104/47 after sitting an additional ~2 minutes, and 125 /43 sitting in chair at end of session. Pt states some dizziness/fuzzy with upright activity. Pt left sitting up in chair at end of session, call button within reach and chair fall alarm armed. Recommend return to assisted living when pt is medically stable. Goals Grooming Goal Independent Dressing Goal Independent Toileting Goal Independent Bathing Goal Minimal Assistance Toilet Transfer Goal Independent,ADA High Toilet, Grab Bars Shower Transfer Goal Minimal Assistance,Walk-in Shower,Shower Chair,Grab Bars Days to Meet Goals 5 Frequency of Treatment Frequency Of Treatment Once a Day Treatment Plan OT Treatment Plan ADL Training,Functional Mobility,Patient/Family Education,Discharge Planning Other Treatment Recommendations and Next Endurance and safety training Treatment Focus with low BP Discharge Recommendations OT Discharge Recommendations Home with Assistance Transportation Needs at Discharge Private Vehicle
--- NOTE | 2021-07-22 10:03 | PT.IIE ---
Medical History (Last Reviewed 07/21/21 @ 22:52 by ROSALES Brown) Asthma Hearing impaired Hiatal hernia Hypertension Type 2 diabetes mellitus Physical Therapy Inpatient Evaluation/Re-Eval M1 PT/OT-IP Prior Functional Status Start: 07/22/21 10:12 Freq: NEEDED Status: Active Protocol: Document 07/22/21 10:13 CGR (Rec: 07/22/21 10:31 CGR [id number]) Medical Review Prior Functional Status Medical History Reviewed Yes Communication Pt is an effective verbal communicator but is very [place]. Pt wears a hearing aid in her L ear but still has difficulty hearing when speaker loudly speaks directly into that ear. Pt is also inconsistent in her ability to read. Mobility and Gait Pt was MOD I with a 4WW at baseline. States that her last fall was 8-9 years ago. Pt typically ambulates to the dining room at her assisted living for all meals. Activities of Daily Living and IADL's Pt was IND in dressing, grooming, oral hygiene and toileting. Pt has SBA to MIN A for bathing and her IADLs are performed by assisted living staff. Social History Household Members none Living Arrangements Assisted Living Number of Floors (Floors) One Floor Number of Stairs To Enter/Railing? No stairs to enter her ground level apartment Home Environment High Toilet,Walk in Shower, Built-In Shower Seat Home Equipment Four Wheel Walker,Grab Bars Near Toilet,Grab Bars In Shower Employment Status Retired Additional Social History Comment Pt has a flat bed without rails. M2 PT-IP Current Condition Start: 07/22/21 13:08 Freq: NEEDED Status: Active Protocol: Document 07/22/21 10:03 AB (Rec: 07/22/21 13:18 AB [email or web address]) Physical Therapy Current Condition Current Condition Evaluation Date 07/22/21 Treatment Diagnosis hyperkalemia; dehydration; difficulty in walking Onset Date 07/21/21 M3 PT-IP Subjective Start: 07/22/21 13:08 Freq: NEEDED Status: Active Protocol: Document 07/22/21 10:03 AB (Rec: 07/22/21 13:18 AB [email or web address]) Subjective Physical Therapy Visit Type Type Initial Evaluation Visit Start Time 10:03 Visit Stop Time 10:38 Total Visit Minutes 35 Number of AIRPORT ENGINEER Visits 0 Physical Therapy Visit Comments Patient Comments pt is agreeable to do PT Therapy Pain Assessment Pain Present Pain Present Denied Pain M4 PT-IP Mobility and Gait Start: 07/22/21 13:08 Freq: NEEDED Status: Active Protocol: Document 07/22/21 10:03 AB (Rec: 07/22/21 13:18 AB [email or web address]) PT-Bed Mobility Assessment Supine to Sit Supine to Sit Standby Assistance Sit to Supine Sit to Supine Standby Assistance PT-Transfer Assessment Sit to and From Stand Sit to and from Stand Contact Guard Assistance,1 Person Assistance,Use of Upper Extremities Equipment Transfer Assistive Device Gait Belt,4 Wheeled Walker Orthotic/Prosthetic Devices or Brace: No Transfers Transfer Destination Bed Transfer Technique Stand Step Pivot Transfer Ability Level of Assist Contact Guard Assistance,1 Person Assistance,Use of Upper Extremities Comments Mobility Comments pt sitting on chair. agreed to do PT. completed sit to stand from chair CGA and ambulated in room ~ 40 ft using 4WW. pt sat on chair to rest. stated that she goes into the bed on the R and gets out on the L and hold on to the bed and dresser to get around the bed to get to the 4WW. completed bed mobilty sit<> supine SBA. ambulate back to the chair using 4WW CGA. pt then stated that she wants to go back to bed and ambulated around the bed again using 4WW CGA. completed sit to supine SBA. positioned in bed. call light and table placed within reach. nurse in room to set up pt's IV. Gait Assessment Gait Gait Assistance Required: Contact Guard Assist Distance (Feet) 40 Able to Maintain Weight Bearing Status Yes During Gait Assistive Devices Assistive Device Gait Belt,4 Wheeled Walker Orthotic/Prosthetic Devices or Brace: No Gait Deviations General Gait Pattern Antalgic,Decreased Stride Length,Decreased Feet Clearance,Flexed Trunk Factors Limiting Gait Function Factors Limiting Gait Function Decreased Activity Tolerance, Decreased Strength PT-Balance Assessment Sitting Balance and Reactions Static Sitting Balance Ability Good Dynamic Sitting Balance Ability Good Standing Balance and Reactions Static Standing Balance Ability Fair Dynamic Standing Balance Ability Fair Device Used 4WW M5 PT-IP Objective Assessments Start: 07/22/21 13:08 Freq: NEEDED Status: Active Protocol: Document 07/22/21 10:03 AB (Rec: 07/22/21 13:18 AB [email or web address]) Orientation Orientation/Cognition Level of Alertness Alert Orientation Name,Age Language Function Ability Hard of Hearing Safety Awareness Understands Safety Issues Gross Range of Motion Lower Extremity ROM Assessment Within Functional Limits Strength Lower Extremity Strength Assessment Within Functional Limits Coordination Assessment Gross Coordination Gross Coordination WNL Sensation Assessment Sensation Gross Sensation WNL Muscle Tone Muscle Tone WNL Yes M6 PT-IP Treatment Start: 07/22/21 13:08 Freq: NEEDED Status: Active Protocol: Document 07/22/21 10:03 AB (Rec: 07/22/21 13:18 AB [email or web address]) Physical Therapy Treatment Education Education Provided Safety M7 PT-IP Assessment and Plan Start: 07/22/21 13:08 Freq: NEEDED Status: Active Protocol: Document 07/22/21 10:03 AB (Rec: 07/22/21 13:18 AB [email or web address]) PT Summary Assessment and Plan Potential Rehabilitation Potential Good Status of Condition at Evaluation Stable Summary Impairments Balance,Bed Mobility,Transfers ,Gait,Activity Tolerance Assessment Summary pt requiring CGA using 4WW and will likely progress during hospital stay. pt will require HHPT to improve overall strength and activity tolerance to improve independence. Goals Bed Mobility Goal Independent Transfer Goal Independent,Front Wheeled Walker Gait Goal Independent,Four Wheel Walker Gait Distance 250 Days to Meet Goals 5 Frequency of Treatment Frequency Of Treatment Once a Day Treatment Plan Physical Therapy Treatment Plan Bed Mobility Training,Transfer Training,Gait Training, Therapeutic Exercise,Balance Retraining,Discharge Planning, Hot or Cold Pack,Neuromuscular Re-ed,Coordination Retraining Other Recommendations and Next Treatment ambulation Focus Recommendations To Nursing Amount of Assist Needed 1 Person Assist Discharge Recommendations PT Discharge Recommendations Home with Assistance,Home Health Transportation Needs at Discharge Private Vehicle
[2021-07-22] MEDS: MAGNESIUM SULFATE 2 GM/50 ML PIGGYBACK IV (10:25)
--- NOTE | 2021-07-22 10:57 | CM.DANOTE ---
DCP: Case received, EMR reviewed and met with patient. KENIA with O.T. was in the room, and able to get some information. This supportive employment case manager was also able to get further information from Alberto at [facility] regarding her baseline activity status prior to hospitalization. DCP assessment completed with information currently available. Patient is an 85 year old female who admitted yesterday afternoon to the care of the hospitalist team. PCP: Dr. Kincaid. Payer: confirmed: Medicare/Medicaid. Patient came to the hospital via ambulance secondary to having low blood pressures, and weakness. Patient was noted to have decreased liver enzymes, as well as BP. She was also noted to have hyperkalemia as well. Met briefly with patient, but she is hard of hearing. KENIA, Isabelle. was in the room doing her assessment. Called [facility] and spoke to Alberto, one of the caregivers at the facility. She indicated that at her baseline, she uses a four wheel walker, but uses the bathroom on her own. She has meals delivered to her room, no swallowing issues. She also has medications given to her by the facility, and stand by for showers. Discussed patient during team rounds. She may need mcfp, have not yet seen P.T. work with patient. Will need to speak to patient if this is the recommendation, and with patient's permission, sisterEdwin is listed as POA. She will make inpatient status, and with Medicare, would qualify by Saturday. P: DCP to continue to follow. Will see how she does with P.T. Will speak to patient and attempt to contact sister after getting patient's permission. Soco Silva RN/[place] Cutter Operator
--- NOTE | 2021-07-22 12:37 | P.PN_ITS ---
Subjective Subjective Date Patient Seen: 07/22/21 Time Patient Seen: 12:37 Interval history: Complains of diarrhea, still fairly weak. No nausea or vomiting. Tolerating a diet. Exam Vital Signs (past 8 hours): - 07/22/21 05:05 07/22/21 07:18 07/22/21 07:38 Temperature 97.8 F 97.0 F L Pulse Rate 61 57 L Respiratory Rate 18 16 Blood Pressure 107/46 L 102/47 L Pulse Oximetry 99 98 97 07/22/21 11:14 07/22/21 11:54 Temperature 97.4 F L Pulse Rate 61 Respiratory Rate 18 Blood Pressure 130/56 L Pulse Oximetry 97 98 Oxygen Delivery Method Room Air Oxygen Flow Rate 0 Narrative Exam Narrative: Gen: Alert, chronically ill appearing 85y.o. ? female, very pleasant HEENT: normocephalic, atraumatic, conjunctiva clear, sclera non-icteric, oral mucosa pink and moist Neck: supple, full ROM, no JVD, trachea is midline Resp: Lungs CTA, non-labored breathing CV: RRR, no murmur or rubs Abd: soft, non-tender, non-distended Skin: no lesions or rashes, dry and intact Neuro:? Very hard of hearing uses a hearing aid in the left ear.? Alert and oriented w/no focal deficits. Speech clear and coherent. Extremities: no edema or joint effusions bilaterally. Psyche: normal mood and affect. Objective Labs Result Diagrams: 07/22/21 05:20 07/22/21 05:20 Labs: Laboratory Results - last 24 hr 07/21/21 07/21/21 07/21/21 11:50 11:50 14:53 WBC RBC Hgb Hct MCV MCH MCHC RDW Plt Count Neut % (Auto) Lymph % (Auto) [place]ck[place] % (Auto) Eos % (Auto) Baso % (Auto) Neut # (Auto) Lymph # (Auto) [place]ckett # (Auto) Eos # (Auto) Baso # (Auto) Sodium 132 L Potassium 5.2 H D Chloride 106 Carbon Dioxide 18 L BUN 43 H Creatinine 1.17 H Estimated GFR 44.0 L BUN/Creatinine Ratio 36.8 H Glucose 36 L* Hemoglobin A1c 6.7 H Calcium 10.5 H Phosphorus Magnesium Total Bilirubin 0.5 AST 125 H ALT 124 H Alkaline Phosphatase 128 H CK-MB (CK-2) 3.44 H CK-MB (CK-2) Rel Index 3.2 Total Protein 7.1 Albumin 4.0 Globulin 3.1 Albumin/Globulin Ratio 1.3 Procalcitonin 0.34 SARS-CoV-2 (PCR) 07/21/21 07/21/21 07/22/21 17:31 20:47 05:20 WBC 3.7 L RBC 3.58 L Hgb 11.7 L Hct 35.3 L MCV 98.5 MCH 32.7 MCHC 33.2 RDW 12.8 Plt Count 173 Neut % (Auto) 48.2 L Lymph % (Auto) 31.6 Crockett % (Auto) 11.2 Eos % (Auto) 8.0 H Baso % (Auto) 1.0 Neut # (Auto) 1800 Lymph # (Auto) 1200 Crockett # (Auto) 400 Eos # (Auto) 300 Baso # (Auto) 0 Sodium 132 L Potassium 5.6 H Chloride 105 Carbon Dioxide 20 L BUN 41 H Creatinine 1.11 H Estimated GFR 46.7 L BUN/Creatinine Ratio 36.9 H Glucose 135 H Hemoglobin A1c Calcium 10.2 Phosphorus Magnesium Total Bilirubin AST ALT Alkaline Phosphatase CK-MB (CK-2) CK-MB (CK-2) Rel Index Total Protein Albumin Globulin Albumin/Globulin Ratio Procalcitonin SARS-CoV-2 (PCR) Negative 07/22/21 05:20 WBC RBC Hgb Hct MCV MCH MCHC RDW Plt Count Neut % (Auto) Lymph % (Auto) Crockett % (Auto) Eos % (Auto) Baso % (Auto) Neut # (Auto) Lymph # (Auto) [place]ck[place] # (Auto) Eos # (Auto) Baso # (Auto) Sodium 133 L Potassium 5.1 Chloride 109 H Carbon Dioxide 21 L BUN 33 H Creatinine 0.91 Estimated GFR 58.8 L BUN/Creatinine Ratio 36.3 H Glucose 104 Hemoglobin A1c Calcium 9.1 Phosphorus 3.4 Magnesium 1.5 L Total Bilirubin AST ALT Alkaline Phosphatase CK-MB (CK-2) CK-MB (CK-2) Rel Index Total Protein Albumin Globulin Albumin/Globulin Ratio Procalcitonin SARS-CoV-2 (PCR) ON LICENSE OF [facility] Medical History Asthma Hearing impaired Hiatal hernia Hypertension Type 2 diabetes mellitus Surgical History History of appendectomy History of cholecystectomy History of repair of hiatal hernia Family History Father Asthma Mother Laryngeal disorder Stomach disorder Social History household members: none Smoking Status: Never smoker alcohol intake: never Assessment & Plan Assessment & Plan narrative: Mariana Alves will be observed overnight for gentle hydration in hopes to resolve her nausea, dehydration and to correct her hyperkalemia. 1. Nausea likely secondary to dehydration and SUDHEER, acute on chronic and present on admission * SUDHEER likely secondary to dehydration. Hold michael inhibition. * Renal diabetic diet, mechanical soft 2. Hyperkalemia, acute, present on admission * Initial potassium was 6.9 and after receiving IV insulin and Kayexalate her potassium came down. Also on lisinopril which will hold going forward. * Recheck in the morning is okay. Likely secondary to SUDHEER. 3. mild transaminitis. - unremarkable RUQ ultrasound, etiology most likely dehydration. Hold home BP medications. 4. Diabetes type 2 good control with a hemoglobin A1c of 6.7 * When given IV insulin to correct her potassium her blood sugars did drop to the 30s but was responsive to food and drink * She has been put on a renal carb controlled diet, prefers no dairy products or cottage cheese * hold metformin, given A1c consider cessation. 5. Hypothyroidism, chronic * Continue home dose of levothyroxine 75 mg 6. Essential hypertension, chronic * Normally takes lisinopril 2.5 mg p.o. in the morning, depending on her creatinine, will either hold or substitute another blood pressure medication 7. Diarrhea - check GI panel, may be related to kayexalate. Dispo: Probable discharge back to her facility tomorrow if renal function remains stable Code status: Full code as discussed with the patient who identifies sister Edwin as her surrogate and POA. [X] I confirmed that the patient's advanced care plan is present, code status is determined, or surrogate decision maker is listed on the patient's medical record. [X] I have utilized all available immediate resources to obtain, update, or review of the patient's current medications Time Spent With Patient Critical Care time: I spent a total of [] minutes of critical care time on this patient's care today; this time is exclusive of procedural time. Quality VTE Deep Vein Thrombosis/Pulmonary Embolism Present on Admission: No
--- NOTE | 2021-07-22 14:30 | CM.DPC ---
Addendum entered by Soco Silva R.N. 07/24/21 07:31: This DC corporate planner charted in the incorrect chart, text below is for a different patient.....Soco SilvaRN/Marketing Traffic Coordinator Addendum entered by PATRIA Pradhan 07/23/21 10:23: Note put in wrong pt chart accidentally. Unable to undo as this DCP did not originally write this note. Please ignore below information for this pt. Thanks. PATRIA Pradhan Original Note: DCP Cont: Spoke to patient's daughter, Dara Richey, with the permission of the patient. She lives in [place]. Her number is listed under contact information. She mentioned, he has been doing well at home, until this fall. She indicated that he had gotten a new [employer], and she thinks that he did not complete the final step to set it up, he was supposed to call the company, since it had not worked. Asked her if she was DPOA, and she said, I thought I only had to do one if he couldn't make decisions on his own. let her know that it would be feasible to do one while the patient is alert and oriented, but would have that document should he not be able to make decisions. Daughter mentioned, I was really worried, because he was refusing to go to a skilled facility, and he can't go home if he can't walk. Let her know that today, patient is consenting to go, but barrier may be some night time confusion. Asked her if patient had ever discussed truck terminal manager planning, and daughter indicated, he hasn't. Asked her if he has any finances, should he eventually need any type of assisted living, and she mentioned, he does have some, not a lot. Asked her this since many skilled rehab facilities want to know about mcfp planning. Daughter, Dara, called back and stated that she spoke to patient's fiberglass fabricator, and she has the COVID vaccine. Gave her this fax number, and she will fax it over to the care management department. P: DCP to continue to work on placement. So far, [facility] is reviewing, but not until Saturday, [facility], nothing this week-end, [facility] is reviewing, [facility] may need to come and see patient, and Mari has referral, message was left. Soco Silva RN/Marketing Traffic Coordinator
[2021-07-22] MEDS: INSULIN LISPRO 100 UNIT/ML 3ML VIAL SUBCUT (16:54)
[2021-07-22 22:45] LABS: Appearance Urine UA CLEAR; Bacteria Urine None Seen; Bilirubin Urine UA NEGATIVE (NEGATIVE); Color Urine UA YELLOW; Glucose Urine UA NEGATIVE (Negative); Ketones Urine UA TRACE (NEGATIVE); Leukocyte Esterase Urine UA NEGATIVE (NEGATIVE); Nitrite Urine UA NEGATIVE (Negative); Occult Blood Urine UA TRACE-INTACT (Negative); Protein Urine UA NEGATIVE (Negative); Urobilinogen Urine UA 0.2 E.U./dL (0.2); WBC Urine None Seen (0-5/HPF)
[2021-07-22 22:50] LABS: Culture Indicated Urine Cult Not Indicated; RBC Urine 0-1/HPF (0-5/HPF); Squamous Epithelial Cell Urine 0-1 /HPF (0-5/HPF)
[2021-07-23] VITALS (7 sets, daily range): BP systolic 120–134; BP diastolic 50–58; PULSE 55–61; RESP 16; TEMP 36.4; O2SAT 93–97
--- NOTE | 2021-07-23 00:57 | PC.NURSE ---
Patient is alert and oriented. [place] but has left hearing aid. Breath sounds with scattered expiratory wheezes; states she has asthma. States she is slightly SOB when up to BSC but able to speak in complete sentences and RA sat 98%. HRR but bradycardic with rate of 54 bpm; telemetry reading was SB. Denies nausea. BT present and is passing flatus. Dribbles urine but denies dysuria, frequency or urgency. Is able to move herself in bed. Up to BSC with walker and SBA. Chronic neuropathy in bilateral feet/toes. Denies pain. Refused SCD's so reminded to ankle wave when awake. Fall risk score is high and bed alarm is activated.
[2021-07-23 05:48] LABS: Add Manual Diff / Slide Review NO; Basophils Absolute Auto 100 /uL (0-100); Basophils Percent Auto 1.2 % (0-2); Eosinophils Absolute Auto 300 /uL (0-450); Eosinophils Percent Auto 7.1 % (2-4); Hematocrit 35.2 % (36-46); Hemoglobin 11.7 g/dL (12.0-16.0); Lymphocytes Absolute Auto 1500 /uL (1100-4500); Mean Corpuscular HGB Conc 33.3 % (30-36); Mean Corpuscular Hemoglobin 32.6 PG (26-34); Monocytes Absolute Auto 600 /uL (0-900); Monocytes Percent Auto 14.1 % (3-14); Neutrophils Absolute Auto 1900 /uL (1500-7000); Neutrophils Percent Auto 43.6 % (50-75); Platelet Count 149 X10^3/uL (150-400); Red Blood Cell Count 3.59 X10^6/uL (4.0-5.2); Red Cell Distribution Width 12.8 % (11.6-14.8); White Blood Cell Count 4.3 X10^3/uL (4.5-11.0)
[2021-07-23 06:00] LABS: BUN Creatinine Ratio 27.1 (6-22); Blood Urea Nitrogen 23 mg/dL (7-17); Calcium 9.3 mg/dL (8.4-10.2); Carbon Dioxide 20 mmol/L (22-32); Chloride 109 mmol/L (98-107); Estimated Glomerular Filt Rate > 60.0 mL/min (>60); Glucose 132 mg/dL (80-110); HEMOLYSIS < 15 (0-50); Magnesium 1.9 mg/dL (1.6-2.3); Sodium 132 mmol/L (137-145)
[2021-07-23] MEDS: LEVOTHYROXINE 112 MCG TABLET PO (06:13)
[2021-07-23] MEDS: INSULIN LISPRO 100 UNIT/ML 3ML VIAL SUBCUT ×2 (08:29→11:59)
[2021-07-23] MEDS: FAMOTIDINE 20 MG TABLET PO (08:31)
--- NOTE | 2021-07-23 08:39 | PM.DS.1 ---
History of Present Illness History of Present Illness Date Patient Seen: 07/23/21 Time Patient Seen: 10:00 Chief complaint: Hypotensive,provider wants MRC Narrative: Per ROSALES Brown: Joselyn is an 85 y.o. with diabetes type 2, hypothyroidism, asthma and history of diverticulitis, a chronic aphasia condition who is a resident of a local assisted living facility with a several week history of abdominal pain and nausea.? She states she has not been able to get better and was brought here by the ambulance.? She states she has been staying in her room in isolating herself for 3 weeks.? She denies any diarrhea cough vomiting but she does endorse being dizzy and weak was unable to walk, denies any falls.? She does use a walker in her room and at the facility.? She has a history of lower esophageal reflux and and has had endoscopies to remove food fragments.? She is extremely hard of hearing but very pleasant. Upon presentation to the emergency department she was hyperkalemic with a potassium of 6.9.? She was given Kayexalate and 10 units of insulin and repeat potassium came down to 5.2.? Done with contrast was negative for any source of pain, noncontrast CT indicated postsurgical changes at the GE junction and diverticulitis, chest x-ray indicated COPD with right middle lobe opacity though the patient has no pulmonary symptoms.? She is afebrile, blood pressure 142/63, heart rate 69, respiratory rate 18, oxygen saturation is 92% on room air, she weighs 50.9 kg with a BMI of 22.6.? Sodium is 132, potassium 5.6, bicarb 20, BUN 41, creatinine 1.11 with a GFR 46.7, glucose 135, A1c is 6.7, alk-phos is 128, lipase is 942, procalcitonin is negative and COVID-19 PCR is negative. Discharge Providers Provider Date of admission: 07/21/21 16:07 Discharge Date: 07/23/21 Primary care physician: Pancho Kincaid MD Consults: 07/21/21 18:03 Consult to Occupational Therapy Evaluate & Treat Comment: Physician Instructions: Evaluate and treat Consult to Physical Therapy Evaluate & Treat Comment: Physician Instructions: Evaluate and Treat Discharge provider: Jos Jordan DO Summary Hospital Course Discharge Diagnosis: 1. Nausea likely secondary to dehydration and SUDHEER, acute on chronic and present on admission, improved 2. Hyperkalemia, acute, present on admission 3. mild transaminitis. 4. Diabetes type 2 good control with a hemoglobin A1c of 6.7 5. Hypothyroidism, chronic 6. Essential hypertension, chronic 7. Diarrhea, improved Hospital Course: This is an 85-year-old female with a past medical history of type 2 diabetes, hypothyroidism, hypertension who was admitted with persistent nausea and hyperkalemia. Etiology was most likely secondary to dehydration and SUDHEER. She had been having some increased diarrhea recently which improved during her hospital stay. She did have 1 episode of loose stools but this may be related to Kayexalate that was given here for her hyperkalemia. A stool panel was ordered but nothing was collected as she did not have any further liquidy bowel movements. She was gently hydrated with fluids with improvement in her creatinine and potassium levels. Her lisinopril was held. She also had mild transaminitis. Her SUDHEER and transaminitis are likely due to hypovolemia given presentation. She had a right upper quadrant ultrasound which showed no biliary dilatation. Her Labs did show an A1c of 6.7% on metformin, and this was held upon discharge given possible GI side effects and given the patient's age. Time Spent with Patient Time spent: Greater than 30 minutes Exam Vital Signs (past 8 hours): - 07/23/21 05:02 07/23/21 07:23 Temperature 97.6 F Pulse Rate 61 Respiratory Rate 16 Blood Pressure 120/54 L Pulse Oximetry 97 96 Oxygen Delivery Method Room Air Oxygen Flow Rate 0 Narrative Exam Narrative: Gen: Alert,? chronically ill appearing 85y.o. ? female, very pleasant HEENT: normocephalic, atraumatic, conjunctiva clear, sclera non-icteric, oral mucosa pink and moist Neck: supple, full ROM, no JVD, trachea is midline Resp: Lungs CTA, non-labored breathing CV: RRR, no murmur or rubs Abd: soft, non-tender, non-distended Skin: no lesions or rashes, dry and intact Neuro:? Very hard of hearing uses a hearing aid in the left ear.? Alert and oriented w/no focal deficits. Speech clear and coherent. Extremities: no edema or joint effusions bilaterally. Psyche: normal mood and affect. Objective Labs Result Diagrams: 07/23/21 05:30 07/23/21 05:30 Labs: Laboratory Results - last 24 hr 07/22/21 07/23/21 07/23/21 20:45 05:30 05:30 WBC 4.3 L RBC 3.59 L Hgb 11.7 L Hct 35.2 L MCV 98.0 MCH 32.6 MCHC 33.3 RDW 12.8 Plt Count 149 L Neut % (Auto) 43.6 L Lymph % (Auto) 34.0 Morgan % (Auto) 14.1 H Eos % (Auto) 7.1 H Baso % (Auto) 1.2 Neut # (Auto) 1900 Lymph # (Auto) 1500 Morgan # (Auto) 600 Eos # (Auto) 300 Baso # (Auto) 100 Sodium 132 L Potassium 5.0 Chloride 109 H Carbon Dioxide 20 L BUN 23 H Creatinine 0.85 Estimated GFR > 60.0 BUN/Creatinine Ratio 27.1 H Glucose 132 H Calcium 9.3 Phosphorus 3.0 Magnesium 1.9 Urine Color Yellow Urine Appearance Clear Urine pH 5.0 Ur Specific [place] 1.020 Urine Protein Negative Urine Glucose (UA) Negative Urine Ketones Trace H Urine Occult Blood Trace-intact Urine Nitrate Negative Urine Bilirubin Negative Urine Urobilinogen 0.2 Ur Leukocyte Esterase Negative Urine RBC 0-1/hpf Urine WBC None seen Ur Squamous Epith Cells 0-1 /hpf Urine Bacteria None seen Ur Culture Indicated? Cult not indicated [facility] Medical History Asthma Hearing impaired Hiatal hernia Hypertension Type 2 diabetes mellitus Surgical History History of appendectomy History of cholecystectomy History of repair of hiatal hernia Family History Father Asthma Mother Laryngeal disorder Stomach disorder Social History household members: none Smoking Status: Never smoker alcohol intake: never Discharge Plan Discharge Plan Patient Disposition: Home Provider Discharge Comment: You were admitted to the hospital with hyperkalemia and acute kidney injury. Some of your medications were stopped. Please follow up with your PCP next week if possible. Discharge orders & Medications Prescriptions: Continued acetaminophen 325 mg Tablet 650 mg PO TID RF: 0 cetirizine 10 mg Tablet 5 mg PO DAILY RF: 0 ketotifen fumarate [Allergy Eye (ketotifen)] 0.025 % (0.035 %) Drops 1 drp EYE-BOTH DAILY PRN (Reason: allergies) RF: 0 polyvinyl alcohol [Artificial Tears (polyvin alc)] 1.4 % Drops 1 drp EYE-BOTH DAILY RF: 0 levothyroxine 75 mcg tablet 112 mcg PO DAILY RF: 0 famotidine 20 mg Tablet 20 mg PO DAILY RF: 0 fluticasone propion-salmeterol [Advair Diskus] 100-50 mcg/dose blister with device 1 inh INHALATION BID RF: 0 multivitamin with minerals [Daily Multivitamin-Minerals] Tablet 1 tab PO DAILY RF: 0 polyethylene glycol 3350 [Miralax] 17 gram/dose Powder 17 g PO DAILY PRN (Reason: Constipation) RF: 0 albuterol sulfate [Ventolin HFA] 90 mcg/actuation HFA aerosol inhaler 1 inh INHALATION Q4HR PRN (Reason: Shortness Of Breath) RF: 0 ondansetron 4 mg tablet,disintegrating 4 mg translingual Q4HR PRN (Reason: Nausea) RF: 0 fluticasone propionate 50 mcg/actuation spray,suspension 1 spray intranasal BID RF: 0 calcium carbonate-vitamin D3 600 mg(1,500mg) -400 unit Tablet,Chewable 1 tab PO BID RF: 0 nystatin 100,000 unit/gram Cream 1 applic TOPICAL DAILY PRN (Reason: affected area) Qty: 15 RF: 0 docusate sodium 100 mg Capsule 100 mg PO DAILY RF: 0 ketoconazole 2 % Cream 1 applic TOPICAL BID RF: 0 tizanidine 2 mg Tablet 2 mg PO TID PRN (Reason: Spasms) RF: 0 triamcinolone acetonide 0.1 % Ointment 1 applic TOPICAL BID PRN (Reason: Itching) RF: 0 Discontinued metformin 500 mg tablet extended release 24 hr 500 mg PO QAM RF: 0 lisinopril 2.5 mg Tablet 2.5 mg PO DAILY RF: 0 Follow up/Referrals: Pancho Kincaid MD [Primary Care Provider] - Diet/Activity/Treatments Diet: Diet as Tolerated Diet comment: Low potassium Activity: As tolerated Visit Report/Discharge Packet Instructions: DI for Dehydration -- Adult, Acute Kidney Injury, How to Prevent Falls Discharge Data Primary Care Provider: Pancho Kincaid VTE Deep Vein Thrombosis/Pulmonary Embolism Present on Admission: No
--- NOTE | 2021-07-23 11:02 | CM.DPC ---
Addendum entered by PATRIA Pradhan 07/23/21 13:49: ALFREDO spoke to RN Maty from [facility] and helped complete a FaceTime bedside assessment with pt and Maty confirms they can accept pt back today and SW faxed d/c summary and signed med rec and no new meds to [facility] to review. Pt states she is very happy to be going home but that her sisters cannot transport as they are at a wedding. ALFREDO called w/e [employer] and confirmed pt has Medicaid transport benefits and they can provide transport to [facility] in half an hour. ALFREDO updated oil prospecting observer, WOOD TILE INSTALLER, RN and they had pt ready for taxi transport at 1345 today. BF Original Note: DCP Discharge with HH Per MD, pt remains medically stable to d/c back to Assisted Living today and agreeable with HH and signed the F2F. Per PT/OT, pt almost back to baseline and recommendation is return to [facility] with HH. Pt had no HH preference and Vendor Calendar is [facility] this week but they do not service [facility]. ALFREDO called [facility] and confirmed they have openings for [facility] and willing to review and SW faxed new referral along with MD orders and signed F2F. ALFREDO called [facility] and spoke with RN and updated on pt discharge and faxed requested clinicals to [phone] and confirmed pt's COVID neg swab on 07/21/21 at 1530 was still within their window of accepting pt back. RN states she needs to complete assessment of pt but cannot until tomorrow. ALFREDO discussed that pt has been medically stable and no medical justification for pt remaining just for assessment and inquired about possible FaceTime or visual by phone or device after reviewing clinicals and RN willing to make this exception. ALFREDO faxed clinicals and will remain in contact with [facility]. [facility] staff also stated they were going to try to determine if family or their van has ability to provide transport for pt today. Plan: ALFREDO to follow closely for [facility] review of pt and plan of d/c to [facility] with [facility] to open. PATRIA Pradhan
--- NOTE | 2021-07-23 11:03 | PT.IPTN ---
Current Diagnoses Dehydration (07/21/21) Physical Therapy Treatment Note M2 PT-IP Current Condition Start: 07/22/21 13:08 Freq: NEEDED Status: Active Protocol: Document 07/22/21 10:03 AB (Rec: 07/22/21 13:18 AB [id number]) Physical Therapy Current Condition Current Condition Evaluation Date 07/22/21 Treatment Diagnosis hyperkalemia; dehydration; difficulty in walking Onset Date 07/21/21 M3 PT-IP Subjective Start: 07/22/21 13:08 Freq: NEEDED Status: Active Protocol: Document 07/23/21 11:03 AW (Rec: 07/23/21 11:33 AW [id number]) Subjective Physical Therapy Visit Type Type Treatment Note Visit Start Time 10:48 Visit Stop Time 11:03 Total Visit Minutes 15 Number of RUBBER VULCANIZING MACHINE OPERATOR Visits 0 Physical Therapy Visit Comments Patient Comments pt is agreeable to do PT Therapy Pain Assessment Pain When Pain Assessed At Rest Pain Present Pain Present Denied Pain M4 PT-IP Mobility and Gait Start: 07/22/21 13:08 Freq: NEEDED Status: Active Protocol: Document 07/23/21 11:03 AW (Rec: 07/23/21 11:33 AW [id number]) PT-Bed Mobility Assessment Supine to Sit Supine to Sit Standby Assistance Sit to Supine Sit to Supine Standby Assistance PT-Transfer Assessment Sit to and From Stand Sit to and from Stand Contact Guard Assistance,Use of Upper Extremities Equipment Transfer Assistive Device Gait Belt,4 Wheeled Walker Orthotic/Prosthetic Devices or Brace: No Transfers Transfer Destination Bed Transfer Technique Stand Step Pivot Transfer Ability Level of Assist Standby Assistance,Use of Upper Extremities Comments Mobility Comments Pt was lying in the bed as PT arrived. She sat up EOB SBA and stood CGA as PT placed 4WW next to bed. She ambulated 300 feet with 4WW SBA without need for rest break, no SOB. Pt did c/o unusual weakness. She returned to the room and completed sit to supine SBA. Left pt with call light and tray table in reach Gait Assessment Gait Gait Assistance Required: Standby Assistance Distance (Feet) 300 Able to Maintain Weight Bearing Status Yes During Gait Assistive Devices Assistive Device Gait Belt,4 Wheeled Walker Orthotic/Prosthetic Devices or Brace: No Gait Deviations General Gait Pattern Antalgic,Decreased Stride Length,Decreased Feet Clearance,Flexed Trunk Factors Limiting Gait Function Factors Limiting Gait Function Decreased Activity Tolerance, Decreased Strength Comments Gait Comments See mobility comments for details. PT-Balance Assessment Sitting Balance and Reactions Static Sitting Balance Ability Good Dynamic Sitting Balance Ability Good Standing Balance and Reactions Static Standing Balance Ability Good Dynamic Standing Balance Ability Good Device Used 4WW Comments Other Balance Tests/Deviations/Treatment No LOB or significant path : deviation with 4WW M5 PT-IP Objective Assessments Start: 07/22/21 13:08 Freq: NEEDED Status: Active Protocol: Document 07/22/21 10:03 AB (Rec: 07/22/21 13:18 AB [email or web address]) Orientation Orientation/Cognition Level of Alertness Alert Orientation Name,Age Language Function Ability Hard of Hearing Safety Awareness Understands Safety Issues Gross Range of Motion Lower Extremity ROM Assessment Within Functional Limits Strength Lower Extremity Strength Assessment Within Functional Limits Coordination Assessment Gross Coordination Gross Coordination WNL Sensation Assessment Sensation Gross Sensation WNL Muscle Tone Muscle Tone WNL Yes M6 PT-IP Treatment Start: 07/22/21 13:08 Freq: NEEDED Status: Active Protocol: Document 07/23/21 11:03 AW (Rec: 07/23/21 11:33 AW [id number]) Physical Therapy Treatment Education Education Provided Safety M7 PT-IP Assessment and Plan Start: 07/22/21 13:08 Freq: NEEDED Status: Active Protocol: Document 07/23/21 11:03 AW (Rec: 07/23/21 11:33 AW [id number]) PT Summary Assessment and Plan Potential Rehabilitation Potential Good Status of Condition at Evaluation Stable Summary Impairments Balance,Bed Mobility,Transfers ,Gait,Activity Tolerance Progress Towards Goals Progressing Toward Goals Assessment Summary Pt requires only SBA for gait with 4WW today. CGA for sit to stand due to initial unsteadiness but pt has good insight and understands her limitation. Pt would benefit from PT to address strength and gait deficits. Goals Bed Mobility Goal Independent Transfer Goal Independent,Front Wheeled Walker Gait Goal Independent,Four Wheel Walker Gait Distance 250 Days to Meet Goals 5 Frequency of Treatment Frequency Of Treatment Once a Day Treatment Plan Physical Therapy Treatment Plan Bed Mobility Training,Transfer Training,Gait Training, Therapeutic Exercise,Balance Retraining,Discharge Planning, Hot or Cold Pack,Neuromuscular Re-ed,Coordination Retraining Other Recommendations and Next Treatment ambulation Focus Recommendations To Nursing Amount of Assist Needed Standby Assistance Discharge Recommendations PT Discharge Recommendations Home with Assistance,Home Health Transportation Needs at Discharge Private Vehicle
--- NOTE | 2021-07-23 13:42 | PC.NURSE ---
Day shift: Paperwork singed and all questions answered. Pt has all personal belongings. MD and d/c instructions in Pt's belongings bag. Pt taken back to her assisted living via [facility] today. Med list signed by MD and w/ Pt belongings. Pt had no complaints today. She did need to void often. UA was neg. Taken to that [facility] in by DIVYA Michael. Pt has been 1 person assist w/ FWW to [facility] yesterday and today. Pt stated I'm so happy to be going back home today. LEft unit at approx 1350.
== END 2021-07-23 13:47 | disposition home or self-care (01) | DRG 641 ==
LOC: ED 14:24 → AC 16:08
PROVIDERS: Nurse Practitioner Family; Admitting Provider Internal Medicine; Emergency Provider Emergency Medicine; PCP Family Medicine; Referring Provider Emergency Medicine; Visit Provider Internal Medicine
DX: E86.0 Dehydration (principal); N17.9 Acute kidney failure, unspecified; E87.5 Hyperkalemia; R11.0 Nausea; R19.7 Diarrhea, unspecified; E11.8 Type 2 diabetes mellitus with unspecified complications; E03.9 Hypothyroidism, unspecified; I10 Essential (primary) hypertension; J45.909 Unspecified asthma, uncomplicated; R74.01 Elevation of levels of liver transaminase levels; Z79.84 Long term (current) use of oral hypoglycemic drugs; Z20.822 Contact with and (suspected) exposure to COVID-19
CPT/HCPCS: 36415; 71045; 74177; 76705; 80048; 80053; 81001; 81003; 82550; 82553; 82962; 83036; 83605; 83690; 83735; 84100; 84145; 84484; 85025; 87635; 93005; 94760; 96361; 96374; 96375; 96376; 97116; 97161; 97165; 97535; 99284; 99285; C9803; A9270; J1815; J3475

== ENCOUNTER → 2021-07-28 17:17 | Outpatient (CLI) | payer MEDICARE, MEDICAID, SELFPAY ==
[2021-07-21 18:07] VITALS: BMI 22.6
--- NOTE | 2021-07-28 17:20 | DI.MRI.S_ITS ---
PROCEDURE: MR ABDOMEN WO CON INDICATIONS: UNSPECIFIED ABDOMINAL PAIN TECHNIQUE: Coronal HASTE through the abdomen, axial 2-D FLASH in- and [id number], and breath-hold T2 FSE with fat saturation through the biliary system and pancreas. Oblique coronal and axial thin-slice HASTE, radial thick-slab HASTE centered on the extrahepatic bile ducts. Intravenous secretin: Not requested. COMPARISON: [facility], CT, CT ABDOMEN PELVIS W CON, 07/21/2021, 13:27. FINDINGS: Image quality: Markedly suboptimal evaluation due to motion artifact. Pancreas and biliary system: Essentially nondiagnostic evaluation secondary to difficulty with breath hold and severe motion artifact. Intra- and extra-hepatic biliary ducts are non dilated. Pancreas is normal in morphology, without adjacent soft tissue edema. Pancreatic duct is grossly normal in caliber, without developmental anomalies. Gallbladder not seen . Other solid organs: Liver is normal in size. Spleen is normal in size. No adrenal nodules. Both kidneys are normal in size, without hydronephrosis. Presumed right renal cysts although technically nonspecific. Nodes and vessels: No retroperitoneal or mesenteric adenopathy by size criteria. Aorta and inferior vena cava are normal in size. Bowel and peritoneum: Unenhanced bowel loops are normal in caliber. No free fluid. Lung bases: No basal pleural effusions. Heart size is normal. Bones and soft tissues: No ventral hernias. Bone marrow is of normal overall signal. IMPRESSION: Nondiagnostic evaluation secondary to severe motion artifact, and inability for the patient to breath hold. Where the intra and extrahepatic bile ducts are actually visible, no gross or severe dilatation seen. No gross intraluminal abnormality (where visible) however a small filling defect technically cannot be excluded due to motion artifact. Dictated by: Aristides Pulliam M.D. on 07/29/2021 at 13:08 Approved by: Aristides Pulliam M.D. on 07/29/2021 at 13:15
== END ==
PROVIDERS: PCP Family Medicine; Referring Provider Internal Medicine; Visit Provider Internal Medicine
DX: R10.9 Unspecified abdominal pain (principal); R74.9 Abnormal serum enzyme level, unspecified
CPT/HCPCS: 74181